=== PATIENT | male | born 1950 | race Caucasian/White ===

== ENCOUNTER 2016-05-11 11:10 | Outpatient (CLI) | payer MEDICARE, OTHER ==
[2016-05-11 11:40] LABS: HEMATOCRIT 22.8 % (37.9-51.0); HGB HCT DIFFERENCE -0.3; MEAN CORPUSCULAR HEMOGLOBIN 25.9 pg (27.0-33.4); MEAN CORPUSCULAR HGB CONC 32.8 g/dL (32.0-36.0); MEAN CORPUSCULAR VOLUME 79 fl (80-97); RED BLOOD COUNT 2.89 10^6/uL (4.35-5.55); RED CELL DISTRIBUTION WIDTH 19.5 % (11.5-14.0); WHITE BLOOD COUNT 4.4 10^3/uL (4.0-10.5)
[2016-05-11 11:52] LABS: HEMOGLOBIN 7.5 g/dL (13.5-17.0)
[2016-05-11] MEDS ORDERED: ACETAMINOPHEN 325 MG TABLET PO PRN (11:52)
[2016-05-11] MEDS ORDERED: NORMAL SALINE 1000 ML 1,000 ML IV PRN (11:52)
[2016-05-11] MEDS ORDERED: DIPHENHYDRAMINE HCL 25 MG CAPSULE PO PRN (11:53)
[2016-05-11] MEDS ORDERED: FUROSEMIDE INJ/PF 20 MG/2 ML SDV IV PRN (11:54)
[2016-05-11 16:12] VITALS: BP 154/57
[2016-05-11 16:29] LABS: HEMATOCRIT 27.2 % (37.9-51.0); HEMOGLOBIN 8.7 g/dL (13.5-17.0); HGB HCT DIFFERENCE -1.1; MEAN CORPUSCULAR HEMOGLOBIN 25.8 pg (27.0-33.4); MEAN CORPUSCULAR VOLUME 81 fl (80-97); RED BLOOD COUNT 3.37 10^6/uL (4.35-5.55); RED CELL DISTRIBUTION WIDTH 19.2 % (11.5-14.0); WHITE BLOOD COUNT 5.6 10^3/uL (4.0-10.5)
== END 2016-05-11 16:27 | disposition home or self-care (01) ==
LOC: II 11:10 → 5TH 11:12 → II 16:27
PROVIDERS: ATTEND Internal Medicine Medical Oncology
PROC: 30233N1 Transfusion of Nonautologous Red Blood Cells into Peripheral Vein, Percutaneous Approach (ICD-10-PCS; principal; 2016-05-11)
DX: N18.9 Chronic kidney disease, unspecified (principal); D50.9 Iron deficiency anemia, unspecified
CPT/HCPCS: 86900; 86901; 36415; 36430; 86850; 85027; 86920; P9016; A9270 ×2; J1940

== ENCOUNTER 2016-05-19 08:47 | Day surgery (SDC) | payer MEDICARE, OTHER ==
[~2016-05-19 08:47] MED LIST: BUPIVACAINE HCL 0.75% INJ/PF (7.5 MG/1 ML) 10 ML SDV OS PRN; CHONDR SU A NA/HYALUR INTRAOC KIT (SURGICARE) ONE; KETOROLAC TROMETHAMINE 0.45% 4 DROP/0.4 ML DROPERETTE OS PRN; LIDOCAINE 4% INJ/PF (40 MG/ML) 5 ML AMPUL OS PRN; PHENYLEPHRINE/KETOROLAC 1%-0.3% 4 ML VIAL ONE
[2016-05-19] MEDS: CYCLOPENTOLATE 0.2%/PHENYLEPHRINE 1% OPH SOLN 2 ML OS PRN ×3 (09:44→10:20)
[2016-05-19] MEDS: TROPICAMIDE 1% OPH SOLN 3 ML OS PRN ×3 (09:44→10:21)
[2016-05-19] MEDS: BESIFLOXACIN HCL 0.6% OPH SUSP 5 ML BOTTLE OS PRN ×3 (09:45→11:15)
[2016-05-19] MEDS: TETRACAINE HCL 0.5% OPH SOLN 0.6 ML DROPERETTE OS PRN ×2 (09:45→10:21)
[2016-05-19] MEDS ORDERED: MIDAZOLAM 2 MG/2 ML INJ ONE (09:54)
--- NOTE | 2016-05-19 12:33 | [facility] OPERATIVE REPORT E ---
[facility] Operative Report NAME: FRIEDA NJ AGE: 66Y DATE OF SURGERY: 05/19/2016 ROOM: PREOPERATIVE DIAGNOSIS: Cataract, left eye. POSTOPERATIVE DIAGNOSIS: Cataract, left eye. PROCEDURE PERFORMED: Phacoemulsification with posterior chamber intraocular lens, left eye. SURGEON: Nicole Tracy MD ANESTHESIA: Topical with MAC. INDICATIONS FOR SURGERY: Difficulty reading TV and glare. Best corrected visual acuity 20/200. PROCEDURE: The patient was brought to the operating room and placed on the operative table. Following tetracaine drops, topical anesthesia was administered. This consisted of instrument wipe pledgets soaked in a solution of 4% Xylocaine mixed with 0.75% Marcaine in a 1:2 ratio. A 2 x 1 cm pledget was placed in the superior fornix. A 1 x 1 cm pledget was placed in the inferior fornix. The eye was patched shut for 5 minutes. The patch was removed. The eye was sterilely prepped and draped in the usual manner. Lid speculum was placed in the eye. The pledgets were removed. 4-0 black silk sutures were placed around the superior and the inferior rectus muscles to be used as traction. A conjunctival peritomy was made at the 10 o'clock position. Hemostasis was obtained with bipolar cautery. A posterior limbal groove was created using a crescent knife and dissected anteriorly towards the cornea. A sharp point blade was used to create a paracentesis site at the 2 o'clock position. A 2.4 mm keratome was used to enter the anterior chamber through the groove. Viscoelastic was injected into the anterior chamber. An anterior capsulotomy was performed using Utrata forceps in a capsulorrhexis fashion. Hydrodissection and hydrodelineation were performed. Phacoemulsification was performed in bnnudz-gwm-[id number] technique. Total phaco time 46 seconds. Following this, the I/A unit was used to remove residual cortex. Viscoelastic was injected into the capsular bag. Intraocular lens model SN60WF, 22.0 diopters, serial number [id number] was placed in the capsular bag. The I/A unit was used to remove residual viscoelastic. The wound was seen to be watertight under high and low pressure, and no sutures were placed. The intraocular lens was well centered. The pressure was adjusted in the eye to normal pressure. The 4-0 black silk sutures and lid speculum were removed. The eye was shielded after Besivance drops were placed. The patient tolerated the procedure well and was sent to the recovery room in good condition. DICTATING PHYSICIAN: NICOLE TRACY M.D. [id number] PHY#: [id number] ID: [id number] JOB#: [id number] ACCT: [id number] cc:NICOLE TRACY M.D. >
--- NOTE | 2016-05-19 12:33 | [facility] DISCHARGE SUMMARY E ---
[facility] Discharge Summary NAME: FRIEDA NJ AGE: 66Y ADMITTED: 05/19/2016 DISCHARGED: 05/19/2016 PREOPERATIVE DIAGNOSIS: Cataract, left eye. POSTOPERATIVE DIAGNOSIS: Cataract, left eye. HOSPITAL COURSE: The patient is a 66-year-old gentleman who underwent uneventful cataract extraction with intraocular lens implant, left eye, on 05/19/2016. He will be discharged to home. He was instructed to resume preoperative medications, take Tylenol as needed for discomfort, to keep his eye shielded, to use Besivance, Durezol, and Ilevro at 3 p.m. and 8 p.m., and to followup in my office in 1 day. DICTATING PHYSICIAN: ISMA TRACY M.D. [id number] PHY#: [id number] ID: [id number] JOB#: [id number] ACCT: [id number] cc:ISMA TRACY M.D. >
== END 2016-05-19 11:54 | disposition home or self-care (01) ==
LOC: SC 08:47
PROVIDERS: ATTEND Ophthalmology
PROC: 08RK3JZ Replacement of Left Lens with Synthetic Substitute, Percutaneous Approach (ICD-10-PCS; principal; 2016-05-19 10:15)
DX: H25.813 Combined forms of age-related cataract, bilateral (principal); H49.21 Sixth [abducent] nerve palsy, right eye; H53.2 Diplopia; H52.4 Presbyopia; I12.0 Hypertensive chronic kidney disease with stage 5 chronic kidney disease or end stage renal disease; N18.6 End stage renal disease; F17.210 Nicotine dependence, cigarettes, uncomplicated; M19.90 Unspecified osteoarthritis, unspecified site; Z99.2 Dependence on renal dialysis; Z85.46 Personal history of malignant neoplasm of prostate; Z79.899 Other long term (current) drug therapy
CPT/HCPCS: 66984; V2632; J2250; J3490 ×3; A9270; C9447; 142

== ENCOUNTER 2016-06-15 11:38 | Outpatient (CLI) | payer MEDICARE, OTHER ==
[2016-06-15 12:09] LABS: HEMATOCRIT 20.5 % (37.9-51.0); HGB HCT DIFFERENCE 0.2; MEAN CORPUSCULAR HEMOGLOBIN 26.9 pg (27.0-33.4); MEAN CORPUSCULAR HGB CONC 33.6 g/dL (32.0-36.0); MEAN CORPUSCULAR VOLUME 80 fl (80-97); RED BLOOD COUNT 2.56 10^6/uL (4.35-5.55); RED CELL DISTRIBUTION WIDTH 19.1 % (11.5-14.0); WHITE BLOOD COUNT 2.8 10^3/uL (4.0-10.5)
[2016-06-15 12:15] LABS: HEMOGLOBIN 6.9 g/dL (13.5-17.0)
[2016-06-15] MEDS ORDERED: ACETAMINOPHEN 325 MG TABLET ONE (13:20)
[2016-06-15] MEDS ORDERED: DIPHENHYDRAMINE HCL 25 MG CAPSULE ONE (13:20)
[2016-06-15] MEDS ORDERED: NORMAL SALINE 250 ML IV PRN (13:38)
[2016-06-15] MEDS ORDERED: FUROSEMIDE INJ/PF 20 MG/2 ML SDV IV PRN (13:40)
[2016-06-15 16:28] LABS: HEMATOCRIT 23.6 % (37.9-51.0); HEMOGLOBIN 8.2 g/dL (13.5-17.0); MEAN CORPUSCULAR HEMOGLOBIN 27.5 pg (27.0-33.4); MEAN CORPUSCULAR HGB CONC 34.5 g/dL (32.0-36.0); MEAN CORPUSCULAR VOLUME 80 fl (80-97); RED BLOOD COUNT 2.97 10^6/uL (4.35-5.55); RED CELL DISTRIBUTION WIDTH 17.7 % (11.5-14.0); WHITE BLOOD COUNT 3.7 10^3/uL (4.0-10.5)
[2016-06-15 16:44] VITALS: BP 140/70
== END 2016-06-15 16:44 | disposition home or self-care (01) ==
LOC: II 11:38 → 5TH 11:43 → II 16:44
PROVIDERS: ATTEND Internal Medicine Medical Oncology
PROC: 30233N1 Transfusion of Nonautologous Red Blood Cells into Peripheral Vein, Percutaneous Approach (ICD-10-PCS; principal; 2016-06-15)
DX: D50.9 Iron deficiency anemia, unspecified (principal); N18.9 Chronic kidney disease, unspecified
CPT/HCPCS: 86900; 86901; 36415; 36430; 86850; 85027; 86920; P9016; A9270 ×2

== ENCOUNTER 2016-09-11 10:39 | Emergency (ER) | payer MEDICARE, OTHER ==
[2016-09-11] MEDS ORDERED: ONDANSETRON 4 MG TAB.RAPDIS SL ONE (11:07)
[2016-09-11] MEDS ORDERED: NORMAL SALINE 1000 ML 500 ML IV PRN (11:09)
--- NOTE | 2016-09-11 11:09 | ER Document Report ---
ED Medical Screen (RME) - General Chief Complaint: Nausea/Vomiting/Diarrhea Stated Complaint: WEAKNESS Time Seen by Provider: 09/11/16 11:04 Mode of Arrival: Wheelchair Information source: Patient TRAVEL OUTSIDE OF THE [place] IN LAST 30 DAYS: No - HPI Patient complains to provider of: Nausea, vomiting, diarrhea Onset: Other - 4 days Onset/Duration: Persistent Quality of pain: No pain Associated Symptoms: Diarrhea, Fever, Nausea, Vomiting Exacerbated by: Denies Relieved by: Denies Notes: 09/11/16 11:08 Patient is a 66-year-old male with a history of end-stage renal disease on hemodialysis Sunday and Sunday, who presents to the emergency room complaining of nausea vomiting and diarrhea 4 days, he denies any blood in his vomit or stools, no abdominal pain, had a fever of [address] Wall told him to come to the emergency room - Related Data Allergies/Adverse Reactions: No Known Allergies Allergy (Verified 09/11/16 10:49) Past Medical History - Past Medical History Cardiac Medical History: Reports: Hx Hypertension Denies: Hx Congestive Heart Failure, Hx Coronary Artery Disease, Hx Heart Attack Pulmonary Medical History: Denies: Hx Asthma, Hx Bronchitis, Hx COPD, Hx Pneumonia, Hx Tuberculosis Neurological Medical History: Denies: Hx Cerebrovascular Accident, Hx Seizures Renal/ Medical History: Reports: Hx Benign Prostatic Hyperplasia - enlarged but surgery and ok now, Hx End Stage Renal Disease. Denies: Hx Kidney Stones, Hx Peritoneal Dialysis GI Medical History: Reports: Hx Gastroesophageal Reflux Disease, Hx Ulcer - 1989 surgery for ulcers. Denies: Hx Cirrhosis, Hx Hepatitis, Hx Hiatal Hernia Musculoskeltal Medical History: Denies Hx Arthritis, Denies Hx Multiple Sclerosis Psychiatric Medical History: Denies: Hx Bipolar Disorder, Hx Depression, Hx Schizophrenia Infectious Medical History: Denies: Hx Hepatitis Past Surgical History: Denies: Hx Open Heart Surgery, Hx Pacemaker - Immunizations Hx Diphtheria, Pertussis, Tetanus Vaccination: No Physical Exam - Vital signs Vitals: Temp Pulse Resp BP Pulse Ox 98.4 F 96 22 H 102/58 L 98 09/11/16 10:49 09/11/16 10:49 09/11/16 10:49 09/11/16 10:49 09/11/16 10:49 Course - Vital Signs Vital signs: Temp Pulse Resp BP Pulse Ox 98.4 F 96 22 H 102/58 L 98 09/11/16 10:49 09/11/16 10:49 09/11/16 10:49 09/11/16 10:49 09/11/16 10:49
[2016-09-11 11:46] LABS: HEMATOCRIT 26.2 % (37.9-51.0); HEMOGLOBIN 8.6 g/dL (13.5-17.0); HGB HCT DIFFERENCE -0.4; MEAN CORPUSCULAR HEMOGLOBIN 28.7 pg (27.0-33.4); MEAN CORPUSCULAR HGB CONC 32.8 g/dL (32.0-36.0); MEAN CORPUSCULAR VOLUME 88 fl (80-97); RED BLOOD COUNT 2.99 10^6/uL (4.35-5.55); RED CELL DISTRIBUTION WIDTH 17.7 % (11.5-14.0); WHITE BLOOD COUNT 2.8 10^3/uL (4.0-10.5)
[2016-09-11 12:03] LABS: ALANINE AMINOTRANSFERASE 17 U/L (21-72); ALBUMIN 4.4 g/dL (3.5-5.0); ALKALINE PHOSPHATASE 279 U/L (38-126); ASPARTATE AMINO TRANSFERASE 23 U/L (17-59); BILIRUBIN,DIRECT 0.7 mg/dL (0.0-0.4); BILIRUBIN,TOTAL 1.6 mg/dL (0.2-1.3); BLOOD UREA NITROGEN 54 mg/dL (7-20); CALCIUM 7.6 mg/dL (8.4-10.2); CARBON DIOXIDE 25 mmol/L (22-30); CHLORIDE 84 mmol/L (98-107); CREATININE RESULT 9.42 mg/dL (0.52-1.25); GLUCOSE 107 mg/dL (75-110); LIPASE 26.3 U/L (23-300); POTASSIUM 4.4 mmol/L (3.6-5.0); SODIUM 132.2 mmol/L (137-145); TOTAL PROTEIN 7.5 g/dL (6.3-8.2)
[2016-09-11 12:18] LABS: ANION GAP 23 (5-19)
[2016-09-11 12:32] LABS: BASOPHILS % (MANUAL) 0 % (0-2); EOSINOPHILS % (MANUAL) 0 % (0-6); LYMPHOCYTES % (MANUAL) 17 % (13-45); TOTAL CELLS COUNTED 100
[2016-09-11 12:33] LABS: POIKILOCYTOSIS 1+; ROULEAUX SLIGHT; TOXIC GRANULATION SLIGHT; TOXIC VACUOLATION PRESENT
[2016-09-11 12:34] LABS: ANISOCYTOSIS 2+; HYPOCHROMASIA SLIGHT; OVALOCYTES SLIGHT; POLYCHROMASIA SLIGHT; TEAR DROP CELLS SLIGHT
[2016-09-11 12:41] LABS: BAND NEUTROPHILS % (MANUAL) 14 % (3-5)
[2016-09-11] MEDS ORDERED: MIDAZOLAM 2 MG/2 ML INJ IV ONE (13:17)
[2016-09-11] MEDS ORDERED: MORPHINE SULFATE 10 MG/ML INJ IV ONE (13:18)
[2016-09-11] MEDS ORDERED: MORPHINE SULFATE 10 MG/ML INJ ONE (13:22)
[2016-09-11] MEDS ORDERED: MIDAZOLAM 2 MG/2 ML INJ ONE (13:23)
--- NOTE | 2016-09-11 14:18 | ER Document Report ---
ED General - General Chief Complaint: Nausea/Vomiting/Diarrhea Stated Complaint: WEAKNESS Time Seen by Provider: 09/11/16 11:04 Mode of Arrival: Wheelchair Information source: Patient Notes: 66 yr old dialysis patient with hx of T [place] Sat , who will have dialysis tomorow presents with complaints of nausea vomiting and diarrhea. pt denies any fevers or chills. TRAVEL OUTSIDE OF THE [place] IN LAST 30 DAYS: No - HPI Onset: Yesterday Onset/Duration: Persistent Quality of pain: No pain Severity: Mild Pain Level: 1 Associated symptoms: Diarrhea, Nausea, Vomiting, Weakness Exacerbated by: Denies Relieved by: Denies Similar symptoms previously: Yes Recently seen / treated by doctor: Yes - sent in by pcp this morning - Related Data Allergies/Adverse Reactions: No Known Allergies Allergy (Verified 09/11/16 10:49) Past Medical History - General Information source: Patient - Social History Smoking Status: Never Smoker Cigarette use (# per day): No Chew tobacco use (# tins/day): No Smoking Education Provided: No Frequency of alcohol use: None Drug Abuse: None Family History: Reviewed & Not Pertinent Patient has suicidal ideation: No Patient has homicidal ideation: No - Past Medical History Cardiac Medical History: Reports: Hx Hypertension Denies: Hx Congestive Heart Failure, Hx Coronary Artery Disease, Hx Heart Attack Pulmonary Medical History: Denies: Hx Asthma, Hx Bronchitis, Hx COPD, Hx Pneumonia, Hx Tuberculosis Neurological Medical History: Denies: Hx Cerebrovascular Accident, Hx Seizures Renal/ Medical History: Reports: Hx Benign Prostatic Hyperplasia - enlarged but surgery and ok now, Hx End Stage Renal Disease. Denies: Hx Kidney Stones, Hx Peritoneal Dialysis GI Medical History: Reports: Hx Gastroesophageal Reflux Disease, Hx Ulcer - 1990 surgery for ulcers. Denies: Hx Cirrhosis, Hx Hepatitis, Hx Hiatal Hernia Musculoskeltal Medical History: Denies Hx Arthritis, Denies Hx Multiple Sclerosis Psychiatric Medical History: Denies: Hx Bipolar Disorder, Hx Depression, Hx Schizophrenia Infectious Medical History: Denies: Hx Hepatitis Past Surgical History: Denies: Hx Open Heart Surgery, Hx Pacemaker - Immunizations Hx Diphtheria, Pertussis, Tetanus Vaccination: No Hx Pneumococcal Vaccination: 04/02/13 Review of Systems - Review of Systems Notes: REVIEW OF SYSTEMS: CONSTITUTIONAL : Denies fever, chills, or sweats. Denies recent illness. EENT: Denies eye, ear, throat, or mouth pain or symptoms. Denies nasal or sinus congestion or discharge. Denies throat, tongue, or mouth swelling or difficulty swallowing. CARDIOVASCULAR: Denies chest pain. Denies palpitations or racing or irregular heart beat. Denies ankle edema. RESPIRATORY: Denies cough, cold, or chest congestion. Denies shortness of breath, difficulty breathing, or wheezing. GASTROINTESTINAL: Admits to nausea vomiting diarrhea GENITOURINARY: Denies difficulty urinating, painful urination, burning, frequency, blood in urine, or discharge. MUSCULOSKELETAL: Denies back or neck pain or stiffness. Denies joint pain or swelling. SKIN: Denies rash, lesions or sores. HEMATOLOGIC : Denies easy bruising or bleeding. LYMPHATIC: Denies swollen, enlarged glands. NEUROLOGICAL: Denies confusion or altered mental status. Denies passing out or loss of consciousness. Denies dizziness or lightheadedness. Denies headache. Denies weakness or paralysis or loss of use of either side. Denies problems with gait or speech. Denies sensory loss, numbness, or tingling. Denies seizures. PSYCHIATRIC: Denies anxiety or stress. Denies depression, suicidal ideation, or homicidal ideation. ALL OTHER SYSTEMS REVIEWED AND NEGATIVE. Dictation was performed using [employer] voice recognition software PHYSICAL EXAMINATION: GENERAL: Well-appearing, well-nourished and in no acute distress. HEAD: Atraumatic, normocephalic. EYES: Pupils equal round and reactive to light, extraocular movements intact, sclera anicteric, conjunctiva are normal. ENT: Nares patent, oropharynx clear without exudates. Moist mucous membranes. NECK: Normal range of motion, supple without lymphadenopathy LUNGS: Breath sounds clear to auscultation bilaterally and equal. No wheezes rales or rhonchi. HEART: Regular rate and rhythm without murmurs ABDOMEN: Soft, nontender, nondistended abdomen. No guarding, no rebound. No masses appreciated. Musculoskeletal: Normal range of motion, no pitting or edema. No cyanosis. NEUROLOGICAL: Cranial nerves grossly intact. Normal speech, normal gait. Normal sensory, motor exams PSYCH: Normal mood, normal affect. SKIN: Warm, Dry, normal turgor, no rashes or lesions noted. Dialysis access left indicated Physical Exam - Vital signs Vitals: Temp Pulse Resp BP Pulse Ox 98.4 F 96 22 H 102/58 L 98 06/12/17 10:49 09/11/16 10:49 09/11/16 10:49 09/11/16 10:49 09/11/16 10:49 Course - Re-evaluation Re-evalutation: 09/11/16 14:17 Dr Wolfgang cueto 09/11/16 14:26 pt notes he is feeling much better, but noted ot have bandemia 09/11/16 15:18 Patient was reevaluated again notes he feels much better wishes to go home, at primary care physician's request I will give another liter of fluids discharge home on antibiotics and very close follow-up. Family is very happy with this plan I expressed my concerns regarding the bandemia and very strict return precautions After performing a Medical Screening Examination, I estimate there is LOW risk for ACUTE APPENDICITIS, BOWEL OBSTRUCTION, ACUTE CHOLECYSTITIS, PERFORATED DIVERTICULITIS, INCARCERATED HERNIA, PANCREATITIS, or PERFORATED ULCER, thus I consider the discharge disposition reasonable. Also, there is no evidence or peritonitis, sepsis, or toxicity. I have reevaluated this patient multiple times and no significant life threatening changes are noted. The patient and I have discussed the diagnosis and risks, and we agree with discharging home with close follow-up with the understanding that symptoms and presentations can change. We also discussed returning to the Emergency Department immediately if new or worsening symptoms occur. We have discussed the symptoms which are most concerning (e.g., bloody stool, fever, changing or worsening pain, intractable vomiting - standard verbal up date) that necessitate immediate return. - Vital Signs Vital signs: Temp Pulse Resp BP Pulse Ox 98.4 F 96 22 H 102/58 L 98 09/11/16 10:49 09/11/16 10:49 09/11/16 10:49 09/11/16 10:49 09/11/16 10:49 - Laboratory Result Diagrams: 09/11/16 11:20 09/11/16 11:20 Laboratory results interpreted by me: 09/11/16 09/11/16 11:20 11:20 WBC 2.8 L RBC 2.99 L Hgb 8.6 L Hct 26.2 L RDW 17.7 H Band Neutrophils % 14 H Sodium 132.2 L Chloride 84 L Anion Gap 23 H BUN 54 H Creatinine 9.42 H Est GFR ( Amer) 7 L Est GFR (Non-Af Amer) 6 L Calcium 7.6 L Total Bilirubin 1.6 H Direct Bilirubin 0.7 H ALT 17 L Alkaline Phosphatase 279 H Discharge - Discharge Clinical Impression: ESRD (end stage renal disease), Bandemia without diagnosis of specific infection, Nausea vomiting and diarrhea Condition: Stable Disposition: HOME, SELF-CARE Instructions: Diarrhea, Nonspecific ([facility]) Prescriptions: Ciprofloxacin HCl [Cipro 500 mg Tablet] 500 mg PO BID #10 tablet Ondansetron [Zofran Odt 4 mg Tablet] 1 - 2 tab PO Q4H PRN #15 tab.rapdis PRN Reason: For Nausea/Vomiting Referrals: LUIS CHAUDHARY MD [Primary Care Provider] - Follow up tomorrow
[2016-09-11] MEDS ORDERED: NORMAL SALINE 1000 ML 1,000 ML IV ONE (15:06)
[2016-09-11 16:51] VITALS: BP 143/67
[2016-09-11 16:52] LABS: APPEARANCE,URINE SLIGHTLY-CLOUDY; BILIRUBIN,URINE NEGATIVE (NEGATIVE); GLUCOSE, URINE NEGATIVE (NEGATIVE); KETONES,URINE NEGATIVE (NEGATIVE); LEUKOCYTE ESTERASE,URINE NEGATIVE (NEGATIVE); NITRITE,URINE NEGATIVE (NEGATIVE); PROTEIN,URINE 100 mg/dL (NEGATIVE); URINE SPECIFIC GRAVITY 1.013; UROBILINOGEN,URINE NEGATIVE mg/dL (<2.0)
--- NOTE | 2016-09-12 00:15 | EKG REPORT ---
SEVERITY:- ABNORMAL ECG - SINUS RHYTHM PROBABLE LEFT ATRIAL ABNORMALITY PROLONGED QT INTERVAL : Confirmed by: Rodger Gordon 12-Sep-2016 00:14:09
[2016-09-12 12:12] LABS: PATH REVIEW PATHOLOGIST REVIEWED
== END 2016-09-11 16:50 | disposition home or self-care (01) ==
LOC: ER 10:39
DX: R11.2 Nausea with vomiting, unspecified (principal); R19.7 Diarrhea, unspecified; D72.825 Bandemia; I12.0 Hypertensive chronic kidney disease with stage 5 chronic kidney disease or end stage renal disease; N18.6 End stage renal disease; Z99.2 Dependence on renal dialysis; R53.1 Weakness
CPT/HCPCS: 93005; 99285; 96372; 96360; 96361; 36415; 83690; 85025; 80053; 81001; 93010; A9270; J7030; S0119

== ENCOUNTER 2016-09-14 11:09 | Outpatient (CLI) | payer MEDICARE, OTHER ==
[~2016-09-14 11:09] MED LIST changes: +ACETAMINOPHEN 325 MG TABLET PO PRN; -BUPIVACAINE HCL 0.75% INJ/PF (7.5 MG/1 ML) 10 ML SDV OS PRN; -CHONDR SU A NA/HYALUR INTRAOC KIT (SURGICARE) ONE; +DIPHENHYDRAMINE HCL 25 MG CAPSULE PO PRN; +FUROSEMIDE INJ/PF 20 MG/2 ML SDV IV PRN; -KETOROLAC TROMETHAMINE 0.45% 4 DROP/0.4 ML DROPERETTE OS PRN; -LIDOCAINE 4% INJ/PF (40 MG/ML) 5 ML AMPUL OS PRN; +NORMAL SALINE 1000 ML 1,000 ML IV PRN; -PHENYLEPHRINE/KETOROLAC 1%-0.3% 4 ML VIAL ONE
[2016-09-14 12:17] LABS: HEMATOCRIT 18.8 % (37.9-51.0); HGB HCT DIFFERENCE -0.2; MEAN CORPUSCULAR HEMOGLOBIN 28.4 pg (27.0-33.4); MEAN CORPUSCULAR HGB CONC 33.2 g/dL (32.0-36.0); MEAN CORPUSCULAR VOLUME 86 fl (80-97); RED CELL DISTRIBUTION WIDTH 16.5 % (11.5-14.0)
[2016-09-14 12:21] LABS: HEMOGLOBIN 6.2 g/dL (13.5-17.0)
[2016-09-14 21:59] LABS: HEMATOCRIT 21.9 % (37.9-51.0); MEAN CORPUSCULAR HEMOGLOBIN 28.9 pg (27.0-33.4); MEAN CORPUSCULAR HGB CONC 33.3 g/dL (32.0-36.0); MEAN CORPUSCULAR VOLUME 87 fl (80-97); RED BLOOD COUNT 2.53 10^6/uL (4.35-5.55); RED CELL DISTRIBUTION WIDTH 15.9 % (11.5-14.0); WHITE BLOOD COUNT 4.4 10^3/uL (4.0-10.5)
[2016-09-14 22:09] LABS: HEMOGLOBIN 7.3 g/dL (13.5-17.0)
[2016-09-14 22:11] VITALS: BP 138/65
== END 2016-09-14 22:27 | disposition home or self-care (01) ==
LOC: II 11:09 → 2N 11:15 → II 22:27
PROVIDERS: ATTEND Internal Medicine Medical Oncology
PROC: 30233N1 Transfusion of Nonautologous Red Blood Cells into Peripheral Vein, Percutaneous Approach (ICD-10-PCS; principal; 2016-09-14)
DX: N18.9 Chronic kidney disease, unspecified (principal); D63.1 Anemia in chronic kidney disease
CPT/HCPCS: 86900; 86901; 36415; 36430; 86850; 85027; 86920; P9016; A9270 ×2; J1940

== ENCOUNTER 2016-10-23 06:15 | Day surgery (SDC) | payer MEDICARE, OTHER ==
[2016-10-23 07:05] LABS: HEMATOCRIT 28.6 % (37.9-51.0); HEMOGLOBIN 9.4 g/dL (13.5-17.0); HGB HCT DIFFERENCE -0.4; MEAN CORPUSCULAR HEMOGLOBIN 29.9 pg (27.0-33.4); MEAN CORPUSCULAR HGB CONC 32.9 g/dL (32.0-36.0); MEAN CORPUSCULAR VOLUME 91 fl (80-97); RED BLOOD COUNT 3.15 10^6/uL (4.35-5.55); RED CELL DISTRIBUTION WIDTH 18.1 % (11.5-14.0); WHITE BLOOD COUNT 5.6 10^3/uL (4.0-10.5)
[2016-10-23 07:13] LABS: ANION GAP 16 (5-19); BLOOD UREA NITROGEN 29 mg/dL (7-20); CALCIUM 8.6 mg/dL (8.4-10.2); CARBON DIOXIDE 24 mmol/L (22-30); CHLORIDE 96 mmol/L (98-107); CREATININE RESULT 7.38 mg/dL (0.52-1.25); GLUCOSE 83 mg/dL (75-110); POTASSIUM 4.4 mmol/L (3.6-5.0); SODIUM 136.2 mmol/L (137-145)
[2016-10-23] MEDS ORDERED: FENTANYL CITRATE INJ/PF 100 MCG/2 ML AMPUL ONE (07:39)
[2016-10-23] MEDS ORDERED: LIDOCAINE 0.5% INJ-PF (5 MG/ML) 50 ML SDV ONE (07:39)
[2016-10-23] MEDS ORDERED: MIDAZOLAM 2 MG/2 ML INJ ONE (07:39)
[2016-10-23] MEDS ORDERED: HEPARIN SOD (PORCINE) 5,000 UNIT/ML 1 ML SYRINGE ONE (07:39)
[2016-10-23] MEDS ORDERED: DIAZEPAM 5 MG TABLET ONE (09:07)
[2016-10-23] MEDS ORDERED: OXYCODONE-ACETAMINOPHEN 5-325 MG TABLET ONE (09:08)
--- NOTE | 2016-10-23 10:01 | PDOC H&P ---
General Chief Complaint: The patient is admitted for evaluation and treatment of left arm arteriovenous fistula which has been malfunctioning. - Current Medications/Allergies Home Medications: Cholecalciferol (Vitamin D3) [Vitamin D3] 50,000 unit PO ASDIR 06/16/14 Sevelamer Carbonate [Renvela] 1 tab PO ASDIR PRN 06/16/14 Besifloxacin HCl [Besivance 0.6% Oph Susp 5 ml] 1 drop OP ASDIR PRN 05/17/16 Difluprednate [Durezol] 5 ml OP ASDIR PRN 05/17/16 Epoetin Gerber [Procrit Inj 40,000 Unit/1 Ml Vial (Nrd-Subq)] 40,000 unit SUBCUT .3WEEKS 05/17/16 Nepafenac [Ilevro] 1.7 ml OP ASDIR PRN 05/17/16 Acetaminophen [Tylenol Extra Strength] 2 tab PO DAILY PRN 10/20/16 Allergies/Adverse Reactions: No Known Allergies Allergy (Verified 10/20/16 11:52) Past Medical History Cardiac Medical History: Reports: Hypertension Denies: Congestive Heart Failure, Coronary Artery Disease, Myocardial Infarction Pulmonary Medical History: Denies: Asthma, Bronchitis, Chronic Obstructive Pulmonary Disease (COPD), Pneumonia, Tuberculosis Neurological Medical History: Denies: Seizures Renal/ Medical History: Reports: End Stage Renal Disease GI Medical History: Reports: Gastroesophageal Reflux Disease Denies: Cirrhosis, Hepatitis, Hiatal Hernia Musculoskeltal Medical History: Denies: Arthritis Psychiatric Medical History: Denies: Bipolar Disorder, Depression Hematology: Reports: Anemia, Bleeding Tendencies Denies: Sickle Cell Disease Past Surgical History Past Surgical History: Denies: Pacemaker Family History Family History: Reviewed & Not Pertinent Parental Family History Reviewed: No Children Family History Reviewed: No Sibling(s) Family History Reviewed.: No Social History Smoking Status: Former Smoker Frequency of Alcohol Use: None Hx Recreational Drug Use: No Drugs: None Hx Prescription Drug Abuse: No Physical Exam Vital Signs: Temp Pulse Resp BP Pulse Ox 97.9 F 64 17 158/67 H 100 10/23/16 09:15 10/23/16 09:57 10/23/16 09:57 10/23/16 09:57 10/23/16 09:57 Intake & Output 10/22/16 10/23/16 10/24/16 06:59 06:59 06:59 Weight 82.7 kg 82.7 kg Additional comments: Constitutional: Well-developed well-nourished gentleman. No apparent acute distress. Eyes: Mucous membranes pink and moist, pupils equal and reactive to light. Conjunctiva normal. Cornea normal. ENT: Hearing grossly normal. External pinna normal to inspection. Teeth missing. Tongue normal to inspection. Cardiac: Heart sounds 1 and 2 normal. Respiratory breath sounds are present bilaterally, normal. Normal respiratory effort. Psychiatric: Judgment, memory, insight seem normal. Mood is pleasant and appropriate. Extremities: Upper extremities show normal range of movement. Pulses present noted to the radial arteries. Capillary refill normal. No cyanosis noted. No muscle wasting noted. Left arm brachiocephalic fistula quite firm suggesting cephalad stenosis. Impression/Plan Impression: #1 malfunctioning AV fistula left brachiocephalic. 2. End-stage renal disease on hemodialysis. 3. Hypertension. Plan: Angiogram is planned with possible angioplasty. The goal is preservation of the fistula function.
--- NOTE | 2016-10-23 10:04 | PDOC DISCHARGE SUMMARY ---
Discharge Summary (SDC) - Discharge Final Diagnosis: #1 malfunctioning AV fistula left brachiocephalic. 2. End-stage renal disease on hemodialysis. 3. Hypertension. Date of Surgery: 10/23/16 Discharge Date: 10/23/16 Forms: [facility] Discharge Plan Treatment or Instructions: Discharge home [after recovery per ASU criteria]. Diet , [renal],as tolerated, when fully awake advance as tolerated. Activities within moderation encouraged. Follow up in my office by appointment in about [1 month]. Call for appointment. Leave wounds [covered], [keep clean and dry, until hemodialysis]. Review meds per med rec. May shower [in 48 hrs], [try to keep operated area as dry as possible]. Referrals: JORGE DHILLON MD [ACTIVE STAFF] - Discharge Diet: As Tolerated, Other (Comments) - Renal Respiratory Treatments at Home: Deep Breathing/Coughing Discharge Activity: Activity As Tolerated Report the Following to Your Physician Immediately: Shortness of Breath, Unusual Bleeding
--- NOTE | 2016-10-23 10:08 | Operative Report ---
Operative Report DATE OF SURGERY: 10/23/16 PREOPERATIVE DIAGNOSIS: #1 malfunctioning AV fistula left brachiocephalic. 2. End-stage renal disease on hemodialysis. 3. Hypertension. POSTOPERATIVE DIAGNOSIS: #1 malfunctioning AV fistula left brachiocephalic. Post angioplasty. 2. End-stage renal disease on hemodialysis. 3. Hypertension. OPERATION: 1. Needle access into the arteriovenous fistula. 2. Angioplasty. 3. Angiogram and interpretation. SURGEON: JORGE RIOS ASSOCIATE PASTOR: None ANESTHESIA: Moderate Sedation TISSUE REMOVED OR ALTERED: Not applicable. COMPLICATIONS: None ESTIMATED BLOOD LOSS: 2 mL. INTRAOPERATIVE FINDINGS: Of a well founded and somewhat firm left brachiocephalic fistula. The culprit lesion is about 3 cm away from the cephalic to subclavian junction. Stenosis about 80% of the adjacent lumen and for 2 cm was completely resolved by angioplasty. The fistula was appropriately softer post angioplasty. PROCEDURE: PROCEDURE: After verifying the procedure and having obtained informed consent, the patient's left arm was prepared with Chlorhexidine and draped out with sterile linen. Local anesthesia infiltrated. Percutaneous access into the fistula ,[ antegrade], obtained about [3 cm] from the arteriovenous anastomosis using a micro puncture needle followed by micro puncture wire and then a micro puncture catheter. Angiogram demonstrated the aforementioned findings. Angioplasty was elected. A 0.035 [place] wire was inserted, and over this, a 7 [place] short introducer was placed, this was followed by a [8-mm ] angioplasty balloon . Angioplasty was Done using a 3 mils syringe at the culprit lesion. This was done for 2 minutes and then repeated for 30 seconds.]. Completion angiogram demonstrated [satisfactory result]. The instrumentation was now withdrawn over and pressure for 10 minutes.. Dressings applied, procedure concluded. Exposure time: 2.1 minutes Radiation: 9 70 mcg/cm Contrast: 25 mm of Isovue 300, low osmolality. DICTATING PHYSICIAN: JORGE DHILLON M.D. cc: JORGE DHILLON M.D. ([id number]) >>
[2016-10-23 10:47] VITALS: BP 162/78
--- NOTE | 2016-10-23 17:34 | RADIOLOGY REPORT (SQ) ---
EXAM DESCRIPTION: FISTULAGRAM W/PLASTY COMPLETED DATE/TIME: 10/23/2016 4:36 pm REASON FOR STUDY: T82.858A T82.858A STENOSIS OF OTHER VASCULAR PROSTH DEV/GRFT, INIT COMPARISON: None. FLUOROSCOPY TIME: 2.1 minutes. 19 images saved to PACS. TECHNIQUE: Intra-operative images acquired during surgical procedure to evaluate progress. NUMBER OF IMAGES: 19 images. LIMITATIONS: None. FINDINGS: Imaging in fluoroscopy during upper extremity dialysis access evaluation and plasty by Dr Isaiah Hunter . Please refer to the operative report for further details. IMPRESSION: INTRA PROCEDURAL IMAGING ABOVE . COMMENT: Quality ID [id number]: Final reports for procedures using fluoroscopy that document radiation exp osure indices, or exposure time and number of fluorographic images (if radiation exposure indices are not available) Please consult full operative report of the attending physician for description of the procedure. TECHNICAL DOCUMENTATION: JOB ID: [id number] [employer]- All Rights Reserved
== END 2016-10-23 10:33 | disposition home or self-care (01) ==
LOC: SC 06:15
PROVIDERS: ATTEND Surgery
PROC: 057F3DZ Dilation of Left Cephalic Vein with Intraluminal Device, Percutaneous Approach (ICD-10-PCS; principal; 2016-10-23)
DX: T82.858A Stenosis of other vascular prosthetic devices, implants and grafts, initial encounter (principal); Y83.2 Surgical operation with anastomosis, bypass or graft as the cause of abnormal reaction of the patient, or of later complication, without mention of misadventure at the time of the procedure; I12.0 Hypertensive chronic kidney disease with stage 5 chronic kidney disease or end stage renal disease; N18.6 End stage renal disease; Z99.2 Dependence on renal dialysis; K21.9 Gastro-esophageal reflux disease without esophagitis; Z79.899 Other long term (current) drug therapy; Z87.891 Personal history of nicotine dependence
CPT/HCPCS: 36415; 85027; 80048; 36902; C1725; C1752; C1894; Q9967; C1769; J1644 ×2; A9270 ×2; J3490; J2250; J3010

== ENCOUNTER 2016-10-27 06:23 | Day surgery (SDC) | payer MEDICARE, OTHER ==
[~2016-10-27 06:23] MED LIST changes: -ACETAMINOPHEN 325 MG TABLET PO PRN; +BUPIVACAINE HCL 0.75% INJ/PF (7.5 MG/1 ML) 10 ML SDV OD PRN; -DIPHENHYDRAMINE HCL 25 MG CAPSULE PO PRN; -FUROSEMIDE INJ/PF 20 MG/2 ML SDV IV PRN; +KETOROLAC TROMETHAMINE 0.45% 4 DROP/0.4 ML DROPERETTE OD PRN; +LIDOCAINE 4% INJ/PF (40 MG/ML) 5 ML AMPUL OD PRN; -NORMAL SALINE 1000 ML 1,000 ML IV PRN
[2016-10-27] MEDS: CYCLOPENTOLATE 0.2%/PHENYLEPHRINE 1% OPH SOLN 2 ML OD PRN ×3 (06:51→07:11)
[2016-10-27] MEDS: BESIFLOXACIN HCL 0.6% OPH SUSP 5 ML BOTTLE OD PRN ×4 (06:51→07:52)
[2016-10-27] MEDS: TROPICAMIDE 1% OPH SOLN 3 ML OD PRN ×3 (06:51→07:11)
[2016-10-27] MEDS: TETRACAINE HCL 0.5% OPH SOLN 0.6 ML DROPERETTE OD PRN ×2 (06:52→07:11)
[2016-10-27] MEDS ORDERED: MIDAZOLAM 2 MG/2 ML INJ ONE (06:53)
[2016-10-27] MEDS ORDERED: FENTANYL CITRATE INJ/PF 100 MCG/2 ML AMPUL ONE (06:53)
[2016-10-27] MEDS ORDERED: EPINEPHRINE INJ/PF 1 MG/1 ML AMPULE ONE (07:07)
[2016-10-27] MEDS ORDERED: CHONDR SU A NA/HYALUR INTRAOC KIT (SURGICARE) ONE (07:07)
--- NOTE | 2016-10-27 08:08 | [facility] DISCHARGE SUMMARY E ---
[facility] Discharge Summary NAME: FRIEDA NJ AGE: 66Y ADMITTED: 10/27/2016 DISCHARGED: 10/27/2016 PREOPERATIVE DIAGNOSIS: Cataract, right eye. POSTOPERATIVE DIAGNOSIS: Cataract, right eye. HOSPITAL COURSE: The patient is a 66-year-old gentleman who underwent uneventful cataract extraction with intraocular lens implant, right eye, on 10/27/2016. He will be discharged to home. He was instructed to resume preoperative medications, take Tylenol as needed for discomfort, to keep his eye shielded, to use Besivance, Durezol, and Ilevro at 3 p.m. and 8 p.m., and to followup in my office in 1 day. DICTATING PHYSICIAN: ISMA TRACY M.D. [id number] PHY#: [id number] ID: [id number] JOB#: [id number] ACCT: [id number] cc:ISMA TRACY M.D. >
--- NOTE | 2016-10-27 08:08 | [facility] OPERATIVE REPORT E ---
[facility] Operative Report NAME: FRIEDA NJ AGE: 66Y DATE OF SURGERY: 10/27/2016 ROOM: PREOPERATIVE DIAGNOSIS: Cataract, right eye. POSTOPERATIVE DIAGNOSIS: Cataract, right eye. PROCEDURE PERFORMED: Phacoemulsification with posterior chamber intraocular lens, right eye. SURGEON: Nicole Tracy MD ANESTHESIA: Topical with MAC. INDICATIONS FOR SURGERY: Difficulty driving at night. Best corrected visual acuity 20/40. PROCEDURE: The patient was brought to the operating room and placed on the operative table. Following tetracaine drops, topical anesthesia was administered. This consisted of instrument wipe pledgets soaked in a solution of 4% Xylocaine mixed with 0.75% Marcaine in a 1:2 ratio. A 2 x 1 cm pledget was placed in the superior fornix. A 1 x 1 cm pledget was placed in the inferior fornix. The eye was patched shut for 5 minutes. The patch was removed. The eye was sterilely prepped and draped in the usual manner. Lid speculum was placed in the eye. The pledgets were removed. 4-0 black silk sutures were placed around the superior and the inferior rectus muscles to be used as traction. A conjunctival peritomy was made at the 10 o'clock position. Hemostasis was obtained with bipolar cautery. A posterior limbal groove was created using a crescent knife and dissected anteriorly towards the cornea. A sharp point blade was used to create a paracentesis site at the 2 o'clock position. A 2.4 mm keratome was used to enter the anterior chamber through the groove. Viscoelastic was injected into the anterior chamber. An anterior capsulotomy was performed using Utrata forceps in a capsulorrhexis fashion. Hydrodissection and hydrodelineation were performed. Phacoemulsification was performed in bptubo-lmt-[id number] technique. Total phaco time 3.60 CDE. Following this, the I/A unit was used to remove residual cortex. Viscoelastic was injected into the capsular bag. Intraocular lens model [id number], 21.0 diopters, serial number [id number] was placed in the capsular bag. The I/A unit was used to remove residual viscoelastic. The wound was seen to be watertight under high and low pressure, and no sutures were placed. The intraocular lens was well centered. The pressure was adjusted in the eye to normal pressure. The 4-0 black silk sutures and lid speculum were removed. The eye was shielded after Besivance drops were placed. The patient tolerated the procedure well and was sent to the recovery room in good condition. DICTATING PHYSICIAN: NICOLE TRACY M.D. [id number] PHY#: [id number] ID: [id number] JOB#: [id number] ACCT: [id number] cc:NICOLE TRACY M.D. >
== END 2016-10-27 08:39 | disposition home or self-care (01) ==
LOC: SC 06:23
PROVIDERS: ATTEND Ophthalmology
PROC: 08RJ3JZ Replacement of Right Lens with Synthetic Substitute, Percutaneous Approach (ICD-10-PCS; principal; 2016-10-27 07:30)
DX: H25.811 Combined forms of age-related cataract, right eye (principal); Z96.1 Presence of intraocular lens; I10 Essential (primary) hypertension; D64.9 Anemia, unspecified; F17.210 Nicotine dependence, cigarettes, uncomplicated; Z86.73 Personal history of transient ischemic attack (TIA), and cerebral infarction without residual deficits
CPT/HCPCS: 66984; V2632; J2250; J3490 ×3; A9270; J0171; J3010; 142

== ENCOUNTER 2017-02-19 05:50 | Day surgery (SDC) | payer MEDICARE, OTHER ==
[2017-02-19 07:17] LABS: HEMOGLOBIN 9.9 g/dL (13.5-17.0); HGB HCT DIFFERENCE 0.7; MEAN CORPUSCULAR HGB CONC 34.1 g/dL (32.0-36.0); MEAN CORPUSCULAR VOLUME 88 fl (80-97); RED CELL DISTRIBUTION WIDTH 17.6 % (11.5-14.0); WHITE BLOOD COUNT 3.6 10^3/uL (4.0-10.5)
[2017-02-19] MEDS ORDERED: LIDOCAINE 0.5% INJ-PF (5 MG/ML) 50 ML SDV ONE (07:28)
[2017-02-19] MEDS ORDERED: MIDAZOLAM 2 MG/2 ML INJ ONE (07:31)
[2017-02-19] MEDS ORDERED: FENTANYL CITRATE INJ/PF 100 MCG/2 ML AMPUL ONE (07:31)
[2017-02-19] MEDS ORDERED: HEPARIN SOD (PORCINE) 5,000 UNIT/ML 1 ML SYRINGE ONE (07:32)
[2017-02-19 08:07] LABS: ANION GAP 16 (5-19); BLOOD UREA NITROGEN 40 mg/dL (7-20); CALCIUM 9.4 mg/dL (8.4-10.2); CARBON DIOXIDE 27 mmol/L (22-30); CHLORIDE 100 mmol/L (98-107); CREATININE RESULT 8.58 mg/dL (0.52-1.25); GLUCOSE 79 mg/dL (75-110); POTASSIUM 4.8 mmol/L (3.6-5.0)
--- NOTE | 2017-02-19 11:08 | PDOC H&P ---
General Chief Complaint: This patient was referred across for angiogram because of increasing difficulty in dialysis. - Current Medications/Allergies Home Medications: Cholecalciferol (Vitamin D3) [Vitamin D3] 50,000 unit PO ASDIR 06/16/14 Sevelamer Carbonate [Renvela] 1 tab PO ASDIR PRN 06/16/14 Epoetin Gerber [Procrit Inj 40,000 Unit/1 ml Vial (Oncology)] 40,000 unit SUBCUT .3WEEKS 05/17/16 Acetaminophen [Tylenol Extra Strength] 2 tab PO DAILY PRN 10/20/16 Allergies/Adverse Reactions: No Known Allergies Allergy (Verified 02/16/17 16:05) Past Medical History Cardiac Medical History: Reports: Hypertension Denies: Congestive Heart Failure, Coronary Artery Disease, Myocardial Infarction Pulmonary Medical History: Denies: Asthma, Bronchitis, Chronic Obstructive Pulmonary Disease (COPD), Pneumonia, Tuberculosis Neurological Medical History: Denies: Seizures Renal/ Medical History: Reports: End Stage Renal Disease GI Medical History: Reports: Gastroesophageal Reflux Disease Denies: Cirrhosis, Hepatitis, Hiatal Hernia Musculoskeltal Medical History: Denies: Arthritis Psychiatric Medical History: Denies: Bipolar Disorder, Depression Hematology: Reports: Anemia, Bleeding Tendencies Denies: Sickle Cell Disease Past Surgical History Past Surgical History: Denies: Pacemaker Family History Family History: Reviewed & Not Pertinent Parental Family History Reviewed: No Children Family History Reviewed: No Sibling(s) Family History Reviewed.: No Social History Smoking Status: Unknown if Ever Smoked Frequency of Alcohol Use: None Hx Recreational Drug Use: No Drugs: None Hx Prescription Drug Abuse: No Physical Exam Vital Signs: Temp Pulse Resp BP Pulse Ox 98.4 F 69 16 147/76 H 99 02/19/17 06:45 02/19/17 10:15 02/19/17 10:15 02/19/17 10:15 02/19/17 10:15 Intake & Output 02/18/17 02/19/17 02/20/17 06:59 06:59 06:59 Weight 86.183 kg Additional comments: Constitutional: Well-developed well-nourished gentleman. No apparent acute distress. Eyes: Mucous membranes pink and moist, pupils equal and reactive to light. Conjunctiva normal. Cornea normal. ENT: Hearing grossly normal. External pinna normal to inspection. Teeth missing. Tongue normal to inspection. Cardiac: Heart sounds 1 and 2 normal. Respiratory breath sounds are present bilaterally, normal. Normal respiratory effort. Psychiatric: Judgment, memory, insight seem normal. Mood is pleasant and appropriate. Extremities: Upper extremities show normal range of movement. Pulses present noted to the radial arteries. Capillary refill normal. No cyanosis noted. No muscle wasting noted. Left arm brachiocephalic fistula, very firm suggestive of cephalad stenosis. Bruit seems fairly normal. . Impression/Plan Plan: In this patient with a malfunctioning his AV fistula, angioplasty and possibly angiogram indicated. The risks, and, benefits, expected outcome and alternatives are familiar to him and he wishes to proceed.
--- NOTE | 2017-02-19 11:10 | PDOC DISCHARGE SUMMARY ---
Discharge Summary (SDC) - Discharge Final Diagnosis: #1 malfunctioning arteriovenous fistula. 2. End-stage renal disease. Date of Surgery: 02/19/17 Discharge Date: 02/19/17 Condition: Good Forms: ASU Anesthesia D/C Instruction, Discharge POC-Surgical Service Treatment or Instructions: Discharge home [after recovery per ASU criteria]. Diet , [renal],as tolerated, when fully awake advance as tolerated. Activities within moderation encouraged. Follow up in my office by appointment in about 1 month call for appointment. Leave wounds [covered], [keep clean and dry, until hemodialysis. Hold of on school/work [until evaluation in office]. May shower [in 48 hrs], [try to keep operated area as dry as possible]. Referrals: JORGE DHILLON MD [ACTIVE STAFF] - Respiratory Treatments at Home: Deep Breathing/Coughing Discharge Activity: No Driving, No tub bath Home Care Assistance: None Needed Report the Following to Your Physician Immediately: Shortness of Breath, Nausea , Vomiting, Increase in Pain, Fever over 101 Degrees, Unusual Bleeding, Redness , Swelling, Warmth, Increased Soreness, Drainage-Yellow, Drainage-Kay, Drainage -Green, Drainage-Foul Smelling, Numbness, Wheezing, IV Site Infection Signs, Urinary Infection Signs
[2017-02-19 11:15] VITALS: BP 148/80
--- NOTE | 2017-02-19 11:17 | Operative Report ---
Operative Report DATE OF SURGERY: 02/19/17 PREOPERATIVE DIAGNOSIS: #1 malfunctioning arteriovenous fistula. 2. End-stage renal disease. POSTOPERATIVE DIAGNOSIS: .#1 malfunctioning arteriovenous fistula. Post angioplasty. 2. End-stage renal disease. OPERATION: 1. Needle entrance into arteriovenous fistula. 2. Balloon angioplasty of fistula. 3. Angioplasty with drug-eluting balloon. 4. Angiogram and interpretation. SURGEON: JORGE RIOS KID CLUB ATTENDANT: None ANESTHESIA: Moderate Sedation TISSUE REMOVED OR ALTERED: Not applicable. COMPLICATIONS: None ESTIMATED BLOOD LOSS: 5 mL. INTRAOPERATIVE FINDINGS: Of a well founded left arm brachiocephalic fistula. Firm initially, suggestive of cephalad stenosis. The very tight stenosis noted easily 90% of the adjacent lumen at the distal cephalic and up to the junction with the subclavian. This was corrected with a 7 mm balloon which sizes up well with the adjacent lumen. There was some rebound with a residual patch no more than 5% stenosis. A 9 mm balloon was used to angioplasty the superior vena cava and the proximal subclavian. The reason for this is because of washout phenomena noted in the subclavian at that area and also the presence of a substantial collateral. No waist was encountered and these some improvement of the collaterals. Drug-eluting balloon, 7 mm, was deployed across the area of stenosis cephalad distal cephalic. Sustaining resolution of the stenosis pertaining the final angiogram. The fistula was softer at the end of the procedure was still somewhat firm. It will need to be watched. PROCEDURE: PROCEDURE: After verifying the procedure and having obtained informed consent, the patient's left arm was prepared with Chlorhexidine and draped out with sterile linen. Local anesthesia infiltrated. Percutaneous access into the fistula ,[ antegrade], obtained about [2 cm] from the arteriovenous anastomosis using a micro puncture needle followed by micro puncture wire and then a micro puncture catheter. \A 0.035 [place] wire was inserted, and over this, a 7 Indian short introducer was placed, this was followed by a [7-mm ] angioplasty balloon . Angioplasty was serially done at the culprit area in the distal cephalic vein. Inflating with a 3 mils syringe for 2 minutes. A 9 mm angioplasty balloon was now inserted and used to sequentially dilated from the superior vena cava up to the subclavian. Very little waist encountered. Completion angiogram demonstrated satisfactory outcome except for slight rebound in the distal cephalic. In this patient who had a similar procedure done just a few months ago a drug- eluting balloon seems well indicated. A 7 mm drug-eluting balloon was therefore placed across the culprit area of the distal cephalic vein and inflated up to 11 avril sustained for 3 minutes. It was then deflated and reinflated somewhat more proximally at the same vein. Completion angiogram demonstrated a very satisfactory outcome. The fistula was much softer, appropriately was still somewhat firm of the procedure. It was decided to accept the results..]. Completion angiogram demonstrated [satisfactory result]. The instrumentation was now withdrawn over and pressure for 10 minutes. Dressings applied, procedure concluded. Exposure time: 2.9 minutes Radiation: 59.2 mg abel per centimeters. Contrast: 25 mm of Isovue-300, low osmolality. DICTATING PHYSICIAN: JORGE DHILLON M.D. cc: JORGE DHILLON M.D. ([id number]) >>
--- NOTE | 2017-02-19 16:06 | RADIOLOGY REPORT (SQ) ---
EXAM DESCRIPTION: FISTULAGRAM W/PLASTY COMPLETED DATE/TIME: 02/19/2017 2:41 pm REASON FOR STUDY: T82.858A T82.858A STENOSIS OF OTHER VASCULAR PROSTH DEV/GRFT, INIT COMPARISON: 10/23/2016 FLUOROSCOPY TIME: 2.9 minutes 28 digital Images saved to PACS TECHNIQUE: Intra-operative images acquired during surgical procedure to evaluate progress. NUMBER OF IMAGES: 28 digital images saved to pac's LIMITATIONS: None. FINDINGS: Imaging in fluoroscopy during left upper extremity dialysis access evaluation and plasty b y Dr. Hunter . Please refer to the operative report for further details. IMPRESSION: INTRA PROCEDURAL IMAGING ABOVE . COMMENT: Quality ID 145: Final reports for procedures using fluoroscopy that document radiation exp osure indices, or exposure time and number of fluorographic images (if radiation exposure indices are not available) Please consult full operative report of the attending physician for description of the procedure. TECHNICAL DOCUMENTATION: JOB ID: [id number] [employer]- All Rights Reserved
== END 2017-02-19 10:40 | disposition home or self-care (01) ==
LOC: CCL 05:50
PROVIDERS: ATTEND Surgery
PROC: 057F3DZ Dilation of Left Cephalic Vein with Intraluminal Device, Percutaneous Approach (ICD-10-PCS; principal; 2017-02-19)
DX: T82.858A Stenosis of other vascular prosthetic devices, implants and grafts, initial encounter (principal); Y83.2 Surgical operation with anastomosis, bypass or graft as the cause of abnormal reaction of the patient, or of later complication, without mention of misadventure at the time of the procedure; I10 Essential (primary) hypertension; N18.6 End stage renal disease; Z99.2 Dependence on renal dialysis; K21.9 Gastro-esophageal reflux disease without esophagitis; D63.1 Anemia in chronic kidney disease; D68.9 Coagulation defect, unspecified
CPT/HCPCS: 36415; 85027; 80048; 36902; C1752; C1725; C1887; C1894 ×2; Q9967; C1769; J2250; J1644 ×2; J3010; J3490; C2623

== ENCOUNTER 2017-05-14 07:50 | Day surgery (SDC) | payer MEDICARE, OTHER ==
[~2017-05-14 07:50] MED LIST changes: -BUPIVACAINE HCL 0.75% INJ/PF (7.5 MG/1 ML) 10 ML SDV OD PRN; +DIAZEPAM 5 MG TABLET PO PRN; -KETOROLAC TROMETHAMINE 0.45% 4 DROP/0.4 ML DROPERETTE OD PRN; -LIDOCAINE 4% INJ/PF (40 MG/ML) 5 ML AMPUL OD PRN; +OXYCODONE-ACETAMINOPHEN 5-325 MG TABLET PO PRN
[2017-05-14 08:36] LABS: HEMATOCRIT 29.1 % (37.9-51.0); HEMOGLOBIN 9.9 g/dL (13.5-17.0); MEAN CORPUSCULAR HEMOGLOBIN 28.8 pg (27.0-33.4); MEAN CORPUSCULAR VOLUME 85 fl (80-97); PLATELET COUNT 159 10^3/uL (150-450); RED BLOOD COUNT 3.44 10^6/uL (4.35-5.55); RED CELL DISTRIBUTION WIDTH 16.5 % (11.5-14.0); WHITE BLOOD COUNT 4.5 10^3/uL (4.0-10.5)
[2017-05-14 08:57] LABS: ANION GAP 14 (5-19); BLOOD UREA NITROGEN 47 mg/dL (7-20); CALCIUM 10.1 mg/dL (8.4-10.2); CARBON DIOXIDE 26 mmol/L (22-30); CHLORIDE 100 mmol/L (98-107); GLUCOSE 85 mg/dL (75-110); POTASSIUM 5.8 mmol/L (3.6-5.0); SODIUM 140.4 mmol/L (137-145)
[2017-05-14] MEDS ORDERED: LIDOCAINE 0.5% INJ-PF (5 MG/ML) 50 ML SDV ONE (08:57)
[2017-05-14] MEDS ORDERED: MIDAZOLAM 2 MG/2 ML INJ ONE (08:58)
[2017-05-14] MEDS ORDERED: FENTANYL CITRATE INJ/PF 100 MCG/2 ML AMPUL ONE (08:58)
[2017-05-14] MEDS ORDERED: HEPARIN SOD (PORCINE) 5,000 UNIT/ML 1 ML SYRINGE ONE (08:58)
[2017-05-14] MEDS ORDERED: SODIUM POLYSTYRENE SULFONATE 15 GM/60 ML ONE (09:08)
[2017-05-14] MEDS ORDERED: SODIUM POLYSTYRENE SULFONATE 15 GM/60 ML PO ONE (10:00)
[2017-05-14] MEDS ORDERED: NORMAL SALINE 1000 ML 1,000 ML IV PRN (11:00)
[2017-05-14] MEDS ORDERED: LIDOCAINE 0.5% INJ-PF (5 MG/ML) 50 ML SDV INJ PRN (11:01)
[2017-05-14] MEDS ORDERED: NORMAL SALINE IV ONE (11:15)
[2017-05-14] MEDS ORDERED: HEPARIN SODIUM PORCINE IV ONE (11:15)
--- NOTE | 2017-05-14 11:30 | RADIOLOGY REPORT (SQ) ---
EXAM DESCRIPTION: FISTULAGRAM W/PLASTY COMPLETED DATE/TIME: 05/14/2017 10:56 am REASON FOR STUDY: T82.858 T82.858A STENOSIS OF OTHER VASCULAR PROSTH DEV/GRFT, INIT COMPARISON: None. FLUOROSCOPY TIME: 0.5 minutes. 22 images saved to PACS. TECHNIQUE: Intra-operative images acquired during surgical procedure to evaluate progress. NUMBER OF IMAGES: 22 images. LIMITATIONS: None. FINDINGS: Imaging in fluoroscopy during left upper extremity dialysis access evaluation and plasty b y Dr. Hunter . Please refer to the operative report for further details. IMPRESSION: INTRA PROCEDURAL IMAGING ABOVE . COMMENT: Quality ID [id number]: Final reports for procedures using fluoroscopy that document radiation exp osure indices, or exposure time and number of fluorographic images (if radiation exposure indices are not available) Please consult full operative report of the attending physician for description of the procedure. TECHNICAL DOCUMENTATION: JOB ID: [id number] [employer]- All Rights Reserved
--- NOTE | 2017-05-14 11:59 | PDOC DISCHARGE SUMMARY ---
Discharge Summary (SDC) - Discharge Final Diagnosis: #1 malfunctioning AV fistula. 2. End-stage renal disease on hemodialysis. 3. Hypertension. Date of Surgery: 05/14/17 Discharge Date: 05/14/17 Condition: Good Forms: Sedation D/C Instructions, Discharge POC-Surgical Service Treatment or Instructions: Discharge home [after recovery per ASU criteria]. Diet , [renal],as tolerated, when fully awake advance as tolerated. Activities within moderation encouraged. Follow up in my office by appointment in about 2 months. Call for appointment. Leave wounds [covered], [keep clean and dry, until hemodialysis]. Meds per med rec. Hold of on school/work [until evaluation in office]. May shower [in 48 hrs], [try to keep operated area as dry as possible]. Referrals: JORGE DHILLON MD [ACTIVE STAFF] - (Follow up as scheduled) Discharge Diet: Other (Comments) - Renal. Respiratory Treatments at Home: Deep Breathing/Coughing Discharge Activity: Activity As Tolerated Home Care Assistance: None Needed Report the Following to Your Physician Immediately: Shortness of Breath, Nausea , Increase in Pain, Fever over 101 Degrees, Unusual Bleeding
[2017-05-14 12:53] VITALS: BP 140/44
--- NOTE | 2017-05-14 14:11 | PDOC H&P ---
General Chief Complaint: The patient was referred in for angiogram and possible angioplasty of left arm AV fistula. The complaint was of increasing pain. - Current Medications/Allergies Home Medications: Cholecalciferol (Vitamin D3) [Vitamin D3] 50,000 unit PO ASDIR 06/16/14 Sevelamer Carbonate [Renvela] 1 tab PO ASDIR PRN 06/16/14 Epoetin Gerber [Procrit Inj 40,000 Unit/1 ml Vial (Oncology)] 40,000 unit SUBCUT .3WEEKS 05/17/16 Acetaminophen [Tylenol Extra Strength] 2 tab PO DAILY PRN 10/20/16 Amlodipine Besylate 10 mg PO DAILY 05/14/17 Leuprolide Acetate [Lupron] 05/14/17 Allergies/Adverse Reactions: No Known Allergies Allergy (Verified 02/16/17 16:05) Past Medical History Cardiac Medical History: Reports: Hypertension Denies: Congestive Heart Failure, Coronary Artery Disease, Myocardial Infarction Pulmonary Medical History: Denies: Asthma, Bronchitis, Chronic Obstructive Pulmonary Disease (COPD), Pneumonia, Tuberculosis Neurological Medical History: Denies: Seizures Renal/ Medical History: Reports: End Stage Renal Disease GI Medical History: Reports: Gastroesophageal Reflux Disease Denies: Cirrhosis, Hepatitis, Hiatal Hernia Musculoskeltal Medical History: Denies: Arthritis Psychiatric Medical History: Denies: Bipolar Disorder, Depression Hematology: Reports: Anemia, Bleeding Tendencies Denies: Sickle Cell Disease Past Surgical History Past Surgical History: Denies: Pacemaker Family History Family History: Reviewed & Not Pertinent Parental Family History Reviewed: No Children Family History Reviewed: No Sibling(s) Family History Reviewed.: No Social History Smoking Status: Never Smoker Frequency of Alcohol Use: None Hx Recreational Drug Use: No Drugs: None Hx Prescription Drug Abuse: No Physical Exam Vital Signs: Temp Pulse Resp BP Pulse Ox 97.2 F 68 18 140/44 H 96 05/14/17 12:00 05/14/17 12:00 05/14/17 12:00 05/14/17 12:00 05/14/17 12:00 Intake & Output 05/13/17 05/14/17 05/15/17 06:59 06:59 06:59 Intake Total 0 Balance 0 Weight 90 kg Additional comments: Constitutional: Well-developed well-nourished gentleman. No apparent acute distress. Eyes: Mucous membranes pink and moist, pupils equal and reactive to light. Conjunctiva normal. Cornea normal. ENT: Hearing grossly normal. External pinna normal to inspection. Some teeth missing. Tongue normal to inspection. Cardiac: Heart sounds 1 and normal. Respiratory breath sounds are present bilaterally, normal. Normal respiratory effort. Psychiatric: Judgment, memory, insight seem normal. Mood is pleasant and appropriate. Extremities: Upper extremities show normal range of movement. Pulses present noted to the radial arteries. Capillary refill normal. No cyanosis noted. No muscle wasting noted. Left arm brachiobasilic fistula, somewhat firm, suggesting cephalad stenosis. Impression/Plan Plan: Angiogram and possible angioplasty recommended. The procedure, its risks, benefits, expected outcome and alternatives are familiar to the patient and he wishes to proceed.
--- NOTE | 2017-05-14 14:15 | Operative Report ---
Operative Report DATE OF SURGERY: 05/14/17 PREOPERATIVE DIAGNOSIS: #1 malfunctioning AV fistula. 2. End-stage renal disease on hemodialysis. 3. Hypertension. POSTOPERATIVE DIAGNOSIS: #1 malfunctioning AV fistula. Post angioplasty. 2. End-stage renal disease on hemodialysis. 3. Hypertension. OPERATION: 1. Needle access into fistula. 2. Angioplasty centrally at subclavian cephalic junction. 3. Angioplasty at 19 cm from anastomosis, in the body of the fistula. 4. Angiogram and interpretation. SURGEON: JORGE RIOS DISC PAD PLATE FILLER: None. ANESTHESIA: Moderate Sedation TISSUE REMOVED OR ALTERED: Not applicable. COMPLICATIONS: None. ESTIMATED BLOOD LOSS: 2 mL. INTRAOPERATIVE FINDINGS: Of a somewhat firm left brachiocephalic fistula. Concordant with stenosis about 70% of movement at 19 cm and a stenosis of about 80% of the lumen of the subclavian cephalic junction. Also another in the swing segment about 3 cm away from the subclavian cephalic junction. All were addressed successfully with a 9 mm angioplasty balloon with complete angiographic resolution of stenoses. No substantial rebound. The prior prior angioplasty was in January 2017 and a drug-eluting balloon was used, the segment used is not recurrent today. PROCEDURE: PROCEDURE: After verifying the procedure and having obtained informed consent, the patient's left arm was prepared with Chlorhexidine and draped out with sterile linen. Local anesthesia infiltrated. Percutaneous access into the fistula ,[ antegrade], obtained about [2 cm] from the arteriovenous anastomosis using a micro puncture needle followed by micro puncture wire and then a micro puncture catheter. Angiogram demonstrated the aforementioned findings. Angioplasty was elected. A 0.035 [place] wire was inserted, and over this, a 7 [place] short introducer was placed, this was followed by a [9-mm ] angioplasty balloon . Angioplasty was done at the subclavian cephalic junction inflating up to 16 avril using a insufflator. Repeated in the slightly more cephalad portion. For 2 minutes. Angioplasty seems successful on angiogram. Angioplasty up to 14 avril done at the segment of 19 cm. Inflating up to 12 atmospheres for 2 minutes.]. Completion angiogram demonstrated [satisfactory result]. The instrumentation was now withdrawn over hand pressure for 10 minutes. Dressings applied, procedure concluded. Exposure time: 0.5 minutes Radiation: 21.39 Joceline abel Contrast: 20 mils of Isovue-300, low osmolality. DICTATING PHYSICIAN: JORGE DHILLON M.D. cc: JORGE DHILLON M.D. ([id number]) >>
== END 2017-05-14 12:00 | disposition home or self-care (01) ==
LOC: CCL 07:50
PROVIDERS: ATTEND Surgery
PROC: 057F3DZ Dilation of Left Cephalic Vein with Intraluminal Device, Percutaneous Approach (ICD-10-PCS; principal; 2017-05-14)
DX: T82.858A Stenosis of other vascular prosthetic devices, implants and grafts, initial encounter (principal); D63.1 Anemia in chronic kidney disease; Y83.2 Surgical operation with anastomosis, bypass or graft as the cause of abnormal reaction of the patient, or of later complication, without mention of misadventure at the time of the procedure; I12.0 Hypertensive chronic kidney disease with stage 5 chronic kidney disease or end stage renal disease; N18.6 End stage renal disease; K21.9 Gastro-esophageal reflux disease without esophagitis; Z79.899 Other long term (current) drug therapy
CPT/HCPCS: 36415; 85027; 80048; 36907; 36902; C1752; C1894; C1769; J2250; J1644 ×2; A9270 ×2; J3010; J3490

== ENCOUNTER 2017-09-24 07:05 | Day surgery (SDC) | payer MEDICARE, OTHER ==
[~2017-09-24 07:05] MED LIST changes: -OXYCODONE-ACETAMINOPHEN 5-325 MG TABLET PO PRN
[2017-09-24 07:58] LABS: HEMATOCRIT 28.4 % (37.9-51.0); HEMOGLOBIN 9.7 g/dL (13.5-17.0); MEAN CORPUSCULAR HEMOGLOBIN 30.5 pg (27.0-33.4); MEAN CORPUSCULAR HGB CONC 34.3 g/dL (32.0-36.0); MEAN CORPUSCULAR VOLUME 89 fl (80-97); PLATELET COUNT 232 10^3/uL (150-450); RED BLOOD COUNT 3.19 10^6/uL (4.35-5.55); RED CELL DISTRIBUTION WIDTH 15.5 % (11.5-14.0); WHITE BLOOD COUNT 5.6 10^3/uL (4.0-10.5)
[2017-09-24] MEDS ORDERED: OXYCODONE-ACETAMINOPHEN 5-325 MG TABLET ONE (08:10)
[2017-09-24 08:17] LABS: ANION GAP 17 (5-19); BLOOD UREA NITROGEN 48 mg/dL (7-20); CARBON DIOXIDE 28 mmol/L (22-30); CHLORIDE 98 mmol/L (98-107); GLUCOSE 85 mg/dL (75-110); POTASSIUM 5.3 mmol/L (3.6-5.0); SODIUM 143.1 mmol/L (137-145)
[2017-09-24] MEDS ORDERED: LIDOCAINE 0.5% INJ-PF (5 MG/ML) 50 ML SDV ONE (09:13)
[2017-09-24] MEDS ORDERED: HEPARIN SOD (PORCINE) 5,000 UNIT/ML 1 ML SYRINGE ONE (09:15)
[2017-09-24] MEDS ORDERED: MIDAZOLAM 2 MG/2 ML INJ ONE (09:15)
[2017-09-24] MEDS ORDERED: FENTANYL CITRATE INJ/PF 100 MCG/2 ML AMPUL ONE (09:15)
[2017-09-24 11:20] VITALS: BP 158/78
--- NOTE | 2017-09-24 11:30 | Operative Report ---
Operative Report DATE OF SURGERY: 09/24/17 PREOPERATIVE DIAGNOSIS: 1. Malfunctioning AV fistula, left brachiocephalic. 2. End-stage renal disease on hemodialysis. POSTOPERATIVE DIAGNOSIS: 1. Malfunctioning AV fistula, left brachiocephalic. 2. End-stage renal disease on hemodialysis. OPERATION: 1. Needle entry into arteriovenous fistula. 2. Peripheral angioplasty. 3. Central angioplasty. 4. Drug-eluting balloon angioplasty. # 5 angiogram and interpretation. SURGEON: JORGE RIOS NUTRITION HELPER: None. ANESTHESIA: Moderate Sedation TISSUE REMOVED OR ALTERED: Not applicable. COMPLICATIONS: None. ESTIMATED BLOOD LOSS: 2 mL. INTRAOPERATIVE FINDINGS: Of a somewhat firm, well-established left brachiocephalic fistula, hyper pulsatile. Culprit lesions are at 20 cm in the fistula estimated 50% stenosis. Significance confirmed by palpation before and after, it is softer cephalad after angioplasty. And angioplasty done also at the cephalic subclavian junction where there is a stenosis of about 70% of the adjacent lumen. Almost entirely corrected with angioplasty with a 9 mm balloon , less than 5% residual stenosis. Small areas of stenosis in the cephalad cephalic vein also. The central veins look fine with no obvious stenosis there. Postprocedure the fistula appropriately softer. PROCEDURE: PROCEDURE: After verifying the procedure and having obtained informed consent, the patient's left arm was prepared with Chlorhexidine and draped out with sterile linen. Local anesthesia infiltrated. Percutaneous access into the fistula ,[ antegrade], obtained about [2 cm] from the arteriovenous anastomosis using a micro puncture needle followed by micro puncture wire and then a micro puncture catheter. Angiogram demonstrated the aforementioned findings. Angioplasty was elected. A 0.035 [place] wire was inserted, and over this, a 6 [place] short introducer was placed, this was followed by a [8-mm ] angioplasty balloon . Angioplasty was At the central stenosis. Inflating up to 18 atmospheres for 3 minutes. The balloon I withdrawn and inflated at 20 cm. Inflation done using hand injection for 3 minutes. Completion angiogram demonstrated residual stenosis at the cephalic subclavian junction. The 6 [place] introducer was replaced with a 7 [place] introducer over the Glidewire. A 9 mm high-pressure angioplasty balloon was no inserted and placed over the culprit area and inflated up to 18 avril. This was sustained for 4 minutes. Completion angiogram demonstrated near resolution of the stenosis. A drug-eluting balloon was now placed over the Glidewire and positioned at the culprit area at the cephalic subclavian. It was inflated up to 11 minutes and sustained for 4 minutes. It was not deflated..]. Completion angiogram demonstrated [satisfactory result]. The hand pressure for 10 minutes. Dressings applied, procedure concluded. Exposure time:1.5 minutes. Radiation: 39.31 Joceline abel. Contrast: 25 mL of Isovue-300, low osmolality. DICTATING PHYSICIAN: JORGE DHILLON M.D. cc: JORGE DHILLON M.D. ([id number]) >>
--- NOTE | 2017-09-24 11:32 | Discharge Summary ---
Discharge Summary (SDC) - Discharge Final Diagnosis: #1 fistula malfunction. 2. End-stage renal disease on hemodialysis. 3. Hypertension. Date of Surgery: 09/24/17 Discharge Date: 09/24/17 Condition: Good Forms: Discharge POC-Surgical Service Treatment or Instructions: CONTINUE ALL HOME MEDS LEAVE DRESSING ON FOR 48 HOURS TAKE TYLENOL NEEDED FOR PAIN FOLLOW UP WITH DR DHILLON SCHEDULED CALL CLINIC WITH ANY QUESTIONS OR CONCERNS Referrals: JORGE DHILLON MD [ACTIVE STAFF] - Discharge Diet: Other (Comments) - Renal. Respiratory Treatments at Home: Deep Breathing/Coughing Discharge Activity: Activity As Tolerated Report the Following to Your Physician Immediately: Shortness of Breath, Unusual Bleeding
--- NOTE | 2017-09-24 14:07 | RADIOLOGY REPORT (SQ) ---
EXAM DESCRIPTION: FISTULAGRAM W/PLASTY; ANGIOPLASTY BRACHIOCEPHALIC COMPLETED DATE/TIME: 09/24/2017 10:59 am REASON FOR STUDY: T82.858A T82.858A STENOSIS OF OTHER VASCULAR PROSTH DEV/GRFT, INIT COMPARISON: None. FLUOROSCOPY TIME: 1.5 minute. 40 images saved to PACS. TECHNIQUE: Intra-operative images acquired during surgical procedure to evaluate progress. NUMBER OF IMAGES: 40 images. LIMITATIONS: None. FINDINGS: Imaging in fluoroscopy during left upper extremity dialysis access evaluation and plasty b y Dr. Hunter . Please refer to the operative report for further details. IMPRESSION: INTRA PROCEDURAL IMAGING ABOVE . COMMENT: Quality ID 145: Final reports for procedures using fluoroscopy that document radiation exp osure indices, or exposure time and number of fluorographic images (if radiation exposure indices are not available) Please consult full operative report of the attending physician for description of the procedure. TECHNICAL DOCUMENTATION: JOB ID: [id number] [employer]- All Rights Reserved Reading location - IP/workstation name: [email or web address]
--- NOTE | 2017-09-24 14:07 | RADIOLOGY REPORT (SQ) ---
EXAM DESCRIPTION: FISTULAGRAM W/PLASTY; ANGIOPLASTY BRACHIOCEPHALIC COMPLETED DATE/TIME: 09/24/2017 10:59 am REASON FOR STUDY: T82.858A T82.858A STENOSIS OF OTHER VASCULAR PROSTH DEV/GRFT, INIT COMPARISON: None. FLUOROSCOPY TIME: 1.5 minute. 40 images saved to PACS. TECHNIQUE: Intra-operative images acquired during surgical procedure to evaluate progress. NUMBER OF IMAGES: 40 images. LIMITATIONS: None. FINDINGS: Imaging in fluoroscopy during left upper extremity dialysis access evaluation and plasty b y Dr. Hunter . Please refer to the operative report for further details. IMPRESSION: INTRA PROCEDURAL IMAGING ABOVE . COMMENT: Quality ID 145: Final reports for procedures using fluoroscopy that document radiation exp osure indices, or exposure time and number of fluorographic images (if radiation exposure indices are not available) Please consult full operative report of the attending physician for description of the procedure. TECHNICAL DOCUMENTATION: JOB ID: [id number] [employer]- All Rights Reserved Reading location - IP/workstation name: [email or web address]
== END 2017-09-24 11:34 | disposition home or self-care (01) ==
LOC: CCL 07:05
PROVIDERS: ATTEND Surgery
DX: T82.858A Stenosis of other vascular prosthetic devices, implants and grafts, initial encounter (principal); Y83.2 Surgical operation with anastomosis, bypass or graft as the cause of abnormal reaction of the patient, or of later complication, without mention of misadventure at the time of the procedure; I12.0 Hypertensive chronic kidney disease with stage 5 chronic kidney disease or end stage renal disease; N18.6 End stage renal disease; Z99.2 Dependence on renal dialysis
CPT/HCPCS: 36415; 85027; 80048; 36907; 36902; C2623; C1752; C1887; C1894; C1769; J2250; J1644 ×2; A9270 ×2; J3010; J3490

== ENCOUNTER 2018-03-18 06:04 | Day surgery (SDC) | payer MEDICARE, OTHER ==
[2018-03-18 06:41] LABS: ABSOLUTE EOSINOPHILS # (AUTO) 0.1 10^3/uL (0.0-0.6); ABSOLUTE LYMPHOCYTES (AUTO) 1.3 10^3/uL (0.5-4.7); ABSOLUTE MONOCYTES (AUTO) 0.3 10^3/uL (0.1-1.4); BASOPHILS % (AUTO) 1.2 % (0-2); EOSINOPHILS % (AUTO) 1.9 % (0-6); HEMATOCRIT 29.7 % (37.9-51.0); HEMOGLOBIN 9.7 g/dL (13.5-17.0); LYMPHOCYTES % (AUTO) 35.7 % (13-45); MEAN CORPUSCULAR HEMOGLOBIN 28.8 pg (27.0-33.4); MEAN CORPUSCULAR HGB CONC 32.7 g/dL (32.0-36.0); MEAN CORPUSCULAR VOLUME 88 fl (80-97); MONOCYTES % (AUTO) 7.9 % (3-13); PLATELET COUNT 244 10^3/uL (150-450); RED BLOOD COUNT 3.38 10^6/uL (4.35-5.55); RED CELL DISTRIBUTION WIDTH 16.6 % (11.5-14.0); SEGMENTED NEUTROPHILS % (AUTO) 53.3 % (42-78); TOTAL CELLS COUNTED % (AUTO) 100 %; WHITE BLOOD COUNT 3.7 10^3/uL (4.0-10.5)
[2018-03-18 07:00] LABS: ANION GAP 16 (5-19); BLOOD UREA NITROGEN 43 mg/dL (7-20); CALCIUM 9.6 mg/dL (8.4-10.2); CARBON DIOXIDE 26 mmol/L (22-30); CHLORIDE 96 mmol/L (98-107); GLUCOSE 90 mg/dL (75-110); POTASSIUM 5.3 mmol/L (3.6-5.0); SODIUM 137.5 mmol/L (137-145)
[2018-03-18] MEDS ORDERED: OXYCODONE-ACETAMINOPHEN 5-325 MG TABLET ONE (07:02)
[2018-03-18] MEDS ORDERED: DIAZEPAM 5 MG TABLET ONE (07:02)
[2018-03-18] MEDS ORDERED: LIDOCAINE 0.5% INJ-PF (5 MG/ML) 50 ML SDV ONE (08:52)
[2018-03-18] MEDS ORDERED: FENTANYL CITRATE INJ/PF 100 MCG/2 ML AMPUL ONE (08:53)
[2018-03-18] MEDS ORDERED: MIDAZOLAM 2 MG/2 ML INJ ONE (08:53)
[2018-03-18] MEDS ORDERED: HEPARIN SOD (PORCINE) 5,000 UNIT/ML 1 ML SYRINGE ONE (08:53)
--- NOTE | 2018-03-18 10:59 | PDOC H&P ---
General Chief Complaint: This patient was referred across because of inadequate function of his AV fistula. - Current Medications/Allergies Home Medications: Cholecalciferol (Vitamin D3) [Vitamin D3] 50,000 unit PO ASDIR 06/16/14 Sevelamer Carbonate [Renvela] 1 tab PO ASDIR PRN 06/16/14 Epoetin Gerber [Procrit Inj 40,000 Unit/1 ml Vial (Oncology)] 40,000 unit SUBCUT .2WEEKS 05/17/16 Acetaminophen [Tylenol Extra Strength] 2 tab PO DAILY PRN 10/20/16 Amlodipine Besylate 10 mg PO DAILY 05/14/17 Leuprolide Acetate [Lupron] 1 mg INJ ASDIR PRN 05/14/17 Oxycodone HCl/Acetaminophen [Percocet 5-325 mg Tablet] 1 tab PO PRN PRN Allergies/Adverse Reactions: No Known Allergies Allergy (Verified 03/18/18 06:50) Past Medical History Cardiac Medical History: Reports: Hypertension Denies: Congestive Heart Failure, Coronary Artery Disease, Myocardial Infarction Pulmonary Medical History: Denies: Asthma, Bronchitis, Chronic Obstructive Pulmonary Disease (COPD), Pneumonia, Tuberculosis Neurological Medical History: Denies: Seizures Renal/ Medical History: Reports: End Stage Renal Disease GI Medical History: Reports: Gastroesophageal Reflux Disease Denies: Cirrhosis, Hepatitis, Hiatal Hernia Musculoskeltal Medical History: Denies: Arthritis Psychiatric Medical History: Denies: Bipolar Disorder, Depression Hematology: Reports: Anemia, Bleeding Tendencies Denies: Sickle Cell Disease Past Surgical History Past Surgical History: Denies: Pacemaker Family History Family History: Reviewed & Not Pertinent Parental Family History Reviewed: No Children Family History Reviewed: No Sibling(s) Family History Reviewed.: No Social History Smoking Status: Unknown if Ever Smoked Frequency of Alcohol Use: None Hx Recreational Drug Use: No Drugs: None Hx Prescription Drug Abuse: No Physical Exam Vital Signs: Temp Pulse Resp BP Pulse Ox 98.2 F 67 16 157/74 H 94 03/18/18 06:00 03/18/18 10:45 03/18/18 10:45 03/18/18 10:45 03/18/18 10:45 Intake & Output 03/17/18 03/18/18 03/19/18 06:59 06:59 06:59 Weight 90.718 kg Additional comments: Constitutional: Well-developed well-nourished gentleman. No apparent acute distress. Eyes: Mucous membranes pink and moist, pupils equal and reactive to light. Conjunctiva normal. Cornea normal. ENT: Hearing grossly normal. External pinna normal to inspection. Teeth mostly intact. Tongue normal to inspection. Cardiac: Heart sounds normal. Respiratory breath: Normal respiratory effort. Psychiatric: Judgment, memory, insight seem normal. Mood is pleasant and appropriate. Extremities: Upper extremities show normal range of movement. Pulses present noted to the radial arteries. Capillary refill normal. No cyanosis noted. No muscle wasting noted. Left arm brachiocephalic fistula, somewhat tortuous with areas of ectasia. Very firm suggestive of cephalad stenosis. Impression/Plan Plan: This patient with a malfunctioning AV fistula is indicated for fistula angiogram and hopefully correct correction. The risks, benefits, expected outcome and alternatives are familiar to him and he wishes to proceed.
--- NOTE | 2018-03-18 11:01 | Discharge Summary ---
Discharge Summary (SDC) - Discharge Final Diagnosis: #1 malfunctioning AV fistula, left brachiocephalic. 2. End-stage renal disease on hemodialysis. 3. Hypertension. Date of Surgery: 03/18/18 Discharge Date: 03/18/18 Condition: Good Forms: Sedation D/C Instructions, Discharge POC-Surgical Service Treatment or Instructions: Discharge home [after recovery per ASU criteria]. Diet , [renal],as tolerated, when fully awake advance as tolerated. Activities within moderation encouraged. Follow up in my office by appointment in about [1 month. Call for appointment. Leave wounds [covered], [keep clean and dry, until hemodialysis. Meds per med rec. May shower [in 48 hrs], [try to keep operated area as dry as possible]. Referrals: JORGE HUNTER MD [ACTIVE STAFF] - (Pt states Dr Hunter told him to follow up in 1 month pt prefers to make her own appointment ) Discharge Diet: Other (Comments) - Renal. Respiratory Treatments at Home: Deep Breathing/Coughing Discharge Activity: Activity As Tolerated Home Care Assistance: None Needed Report the Following to Your Physician Immediately: Shortness of Breath, Nausea , Vomiting, Increase in Pain, Fever over 101 Degrees, Unusual Bleeding
--- NOTE | 2018-03-18 11:08 | Operative Report ---
Operative Report DATE OF SURGERY: 03/18/18 PREOPERATIVE DIAGNOSIS: #1 malfunctioning AV fistula, left brachiocephalic. 2. End-stage renal disease on hemodialysis. 3. Hypertension. POSTOPERATIVE DIAGNOSIS: #1 malfunctioning AV fistula, left brachiocephalic. 2. End-stage renal disease on hemodialysis. 3. Hypertension. OPERATION: 1. Needle access to AV fistula left brachiocephalic. 2. Angioplasty. 3. Drug-eluting balloon angioplasty. 4. Angiogram and interpretation. SURGEON: JORGE RIOS INDUSTRIAL TRUCK MECHANIC: None. ANESTHESIA: Moderate Sedation TISSUE REMOVED OR ALTERED: Not applicable. COMPLICATIONS: None. ESTIMATED BLOOD LOSS: 2 mL. INTRAOPERATIVE FINDINGS: Of a well founded left arm brachiocephalic fistula. Starting about 3 cm below the elbow. Very firm in the first 15 cm soft above. Ectasia noted in 2 areas about 3 cm, in mid arm. This seems to be the areas of frequent needle access. The findings are concordant with a tight stenosis easily 80% of the adjacent lumen at about 20 cm from the anastomosis. In addition a tight stenosis at the junction of the cephalic and subclavian about 70% of the adjacent lumen. Both of these were successfully resolved by angioplasty with a 9 mm balloon at the cephalic to subclavian and a 9 mm balloon at the 20 cm andi. Drug-eluting balloon was used in the mid fistula. The hope being to reduce the chance of restenosis. About 7 months ago the patient had a drug-eluting balloon used at 9 mm in the cephalic to subclavian junction. PROCEDURE: Indication: This patient has hemodialysis through his left arm brachiocephalic fistula. Increased pressures have been noted and he is therefore indicated for angiogram. The expectation is to evaluate for defect in the correct possible with angioplasty or other techniques. The hope is to keep this fistula functioning for hemodialysis for as long as possible. PROCEDURE: After verifying the procedure and having obtained informed consent, the patient's left arm was prepared with Chlorhexidine and draped out with sterile linen. Local anesthesia infiltrated. Percutaneous access into the fistula ,[ antegrade], obtained about [2 cm] from the arteriovenous anastomosis using a micro puncture needle followed by micro puncture wire and then a micro puncture catheter. A 0.035 [place] wire was inserted, and over this, a 7 [place] short introducer was placed.Angiogram demonstrated the aforementioned findings. Angioplasty was elected. This was followed by a [8 -mm] angioplasty balloon . Angioplasty was Done at the cephalic subclavian junction and then subsequently at the mid arm 20 cm area. Inflating up to 14 avril atmospheres for 2-3 minutes at a time.]. Completion angiogram demonstrated [satisfactory result]. A 9 mm angioplasty balloon was now placed at the cephalic subclavian junction and inflated up to 14 avril. Angiogram demonstrated almost complete resolution of the previous stenosis. This result was accepted.. An 8 mm drug-eluting balloon was now placed over the mid arm segment at 20 cm and inflated up to 11 avril for 4 minutes. Post angiogram was satisfactory and the procedure concluded. The instrumentation was now wit hand-held pressure for 10 minutes. Dressings applied, procedure concluded. Exposure time: 0.9 minutes Radiation: 6.77 Viktoria abel Contrast: 25 mils of Isovue-300, low osmolality. DICTATING PHYSICIAN: JORGE DHILLON M.D. cc: JORGE DHILLON M.D. ([id number]) >>
[2018-03-18 12:03] VITALS: BP 136/63
--- NOTE | 2018-03-18 15:25 | RADIOLOGY REPORT (SQ) ---
EXAM DESCRIPTION: FISTULAGRAM W/PLASTY COMPLETED DATE/TIME: 03/18/2018 1:32 pm REASON FOR STUDY: T82.858A T82.858A STENOSIS OF OTHER VASCULAR PROSTH DEV/GRFT, INIT Z79.899 OTHER RADIATION ONCOLOGY NURSE (CURRENT) DRUG THERAPY FLUOROSCOPY TIME: 2.1 minutes total fluoro time 112 digital Images saved to PACS TECHNIQUE: Intra-operative images acquired during surgical procedure to evaluate progress. NUMBER OF IMAGES: 112 images LIMITATIONS: None. FINDINGS: Intra procedural imaging and fluoro during evaluation and plasty of left upper extremity d ialysis access by Dr. Hunter. Please see his operative report for further details IMPRESSION: Intra procedural imaging and fluoro COMMENT: Quality ID 145: Final reports for procedures using fluoroscopy that document radiation exp osure indices, or exposure time and number of fluorographic images (if radiation exposure indices are not available) Please consult full operative report of the attending physician for description of the procedure. TECHNICAL DOCUMENTATION: JOB ID: [id number] [employer]- All Rights Reserved PROCEDURE: 112 digital images saved to pac's COMPARISON: None. 09/24/2017 Reading location - IP/workstation name: [email or web address]
== END 2018-03-18 11:45 | disposition home or self-care (01) ==
LOC: CCL 06:04
PROVIDERS: ATTEND Surgery
DX: T82.858A Stenosis of other vascular prosthetic devices, implants and grafts, initial encounter (principal); Y83.2 Surgical operation with anastomosis, bypass or graft as the cause of abnormal reaction of the patient, or of later complication, without mention of misadventure at the time of the procedure; I12.0 Hypertensive chronic kidney disease with stage 5 chronic kidney disease or end stage renal disease; N18.6 End stage renal disease; Z99.2 Dependence on renal dialysis; K21.9 Gastro-esophageal reflux disease without esophagitis
CPT/HCPCS: 36415; 85025; 80048; 36902; C1725; C2623; C1752; C1894; C1769; J2250; J1644 ×2; A9270 ×2; J3010; J3490

== ENCOUNTER 2018-05-20 07:08 | Day surgery (SDC) | payer MEDICARE, OTHER ==
[~2018-05-20 07:08] MED LIST changes: +OXYCODONE-ACETAMINOPHEN 5-325 MG TABLET PO PRN
[2018-05-20] MEDS ORDERED: OXYCODONE-ACETAMINOPHEN 5-325 MG TABLET ONE (07:29)
[2018-05-20] MEDS ORDERED: DIAZEPAM 5 MG TABLET ONE (07:29)
[2018-05-20 08:23] LABS: HEMATOCRIT 27.4 % (37.9-51.0); HEMOGLOBIN 8.9 g/dL (13.5-17.0); MEAN CORPUSCULAR HEMOGLOBIN 26.6 pg (27.0-33.4); MEAN CORPUSCULAR HGB CONC 32.6 g/dL (32.0-36.0); MEAN CORPUSCULAR VOLUME 82 fl (80-97); PLATELET COUNT 279 10^3/uL (150-450); RED BLOOD COUNT 3.36 10^6/uL (4.35-5.55); RED CELL DISTRIBUTION WIDTH 18.8 % (11.5-14.0); WHITE BLOOD COUNT 5.1 10^3/uL (4.0-10.5)
[2018-05-20 08:37] LABS: ANION GAP 9 (5-19); BLOOD UREA NITROGEN 29 mg/dL (7-20); CALCIUM 8.9 mg/dL (8.4-10.2); CARBON DIOXIDE 32 mmol/L (22-30); CHLORIDE 98 mmol/L (98-107); GLUCOSE 83 mg/dL (75-110); POTASSIUM 4.4 mmol/L (3.6-5.0); SODIUM 139.2 mmol/L (137-145)
[2018-05-20] MEDS ORDERED: LIDOCAINE 0.5% INJ-PF (5 MG/ML) 50 ML SDV ONE (09:42)
[2018-05-20] MEDS ORDERED: MIDAZOLAM 2 MG/2 ML INJ ONE (09:43)
[2018-05-20] MEDS ORDERED: FENTANYL CITRATE INJ/PF 100 MCG/2 ML AMPUL ONE (09:43)
[2018-05-20] MEDS ORDERED: HEPARIN SOD (PORCINE) 5,000 UNIT/ML 1 ML SYRINGE ONE (09:43)
--- NOTE | 2018-05-20 11:26 | PDOC H&P ---
General Chief Complaint: This patient was referred across for angiogram, increased limb size was noted. - Diagnosis (1) Dialysis AV fistula malfunction Is this a Current Diagnosis?: Yes (2) ESRD on hemodialysis Is this a Current Diagnosis?: Yes (3) HTN (hypertension) Is this a Current Diagnosis?: Yes - Current Medications/Allergies Home Medications: Cholecalciferol (Vitamin D3) [Vitamin D3] 50,000 unit PO ASDIR 06/16/14 Sevelamer Carbonate [Renvela] 1 tab PO ASDIR PRN 06/16/14 Epoetin Gerber [Procrit Inj 40,000 Unit/1 ml Vial (Oncology)] 40,000 unit SUBCUT .2WEEKS 05/17/16 Acetaminophen [Tylenol Extra Strength] 2 tab PO DAILY PRN 10/20/16 Amlodipine Besylate 10 mg PO DAILY 05/14/17 Leuprolide Acetate [Lupron] 1 mg INJ ASDIR PRN 05/14/17 Oxycodone HCl/Acetaminophen [Percocet 5-325 mg Tablet] 1 tab PO PRN PRN 09/21/17 Allergies/Adverse Reactions: No Known Allergies Allergy (Verified 03/18/18 06:50) Past Medical History Cardiac Medical History: Reports: Hypertension Denies: Congestive Heart Failure, Coronary Artery Disease, Myocardial Infarction Pulmonary Medical History: Denies: Asthma, Bronchitis, Chronic Obstructive Pulmonary Disease (COPD), Pneumonia, Tuberculosis Neurological Medical History: Denies: Seizures Renal/ Medical History: Reports: End Stage Renal Disease GI Medical History: Reports: Gastroesophageal Reflux Disease Denies: Cirrhosis, Hepatitis, Hiatal Hernia Musculoskeltal Medical History: Denies: Arthritis Psychiatric Medical History: Denies: Bipolar Disorder, Depression Hematology: Reports: Anemia, Bleeding Tendencies Denies: Sickle Cell Disease Past Surgical History Past Surgical History: Denies: Pacemaker Family History Family History: Reviewed & Not Pertinent Parental Family History Reviewed: No Children Family History Reviewed: No Sibling(s) Family History Reviewed.: No Social History Smoking Status: Never Smoker Frequency of Alcohol Use: None Hx Recreational Drug Use: No Drugs: None Hx Prescription Drug Abuse: No Physical Exam Vital Signs: Temp Pulse Resp BP Pulse Ox 98.1 F 67 16 132/70 H 99 05/20/18 08:09 05/20/18 08:09 05/20/18 08:09 05/20/18 08:09 05/20/18 08:09 Intake & Output 05/19/18 05/20/18 05/21/18 06:59 06:59 06:59 Weight 90.718 kg Additional comments: Constitutional: Well-developed well-nourished gentleman. No apparent acute distress. Eyes: Mucous membranes pink and moist, pupils equal and reactive to light. Conjunctiva normal. Cornea normal. ENT: Hearing grossly normal. External pinna normal to inspection. Teeth some intact. Tongue normal to inspection. Cardiac: Heart sounds normal. Respiratory: Normal respiratory effort. Psychiatric: Judgment, memory, insight seem normal. Mood is pleasant and appropriate. Extremities: Upper extremities show normal range of movement. Pulses present noted to the radial arteries. Capillary refill normal. No cyanosis noted. No muscle wasting noted. Left left upper extremity brachiocephalic fistula. Somewhat firmer than expected, 2 aneurysmal areas noted about 2.5 cm across. Impression/Plan Plan: In this patient with malfunctioning AV fistula angiogram and possible intervention is indicated. The procedure, its risks, benefits, expected outcome and alternatives are familiar to the patient. He wishes to proceed.
--- NOTE | 2018-05-20 11:28 | Discharge Summary ---
Discharge Summary (SDC) - Discharge Final Diagnosis: #1 left AV fistula, brachiocephalic malfunction. 2. End-stage renal disease on hemodialysis. 3. Hypertension. Date of Surgery: 05/20/18 Discharge Date: 05/20/18 Condition: Good Forms: ASU Anesthesia D/C Instruction, Discharge POC-Surgical Service Treatment or Instructions: Discharge home [after recovery per ASU criteria]. Diet , [renal],as tolerated, when fully awake advance as tolerated. Activities within moderation encouraged. Follow up in my office by appointment on Sunday with our of this week for suture removal. Call for appointment. Leave wounds [covered], [keep clean and dry, until office visit i this week]. Meds per med rec. May shower [in 48 hrs], [try to keep operated area as dry as possible]. Referrals: JORGE DHILLON MD [ACTIVE STAFF] - 05/22/18 10:30 am Discharge Diet: Other (Comments) - Renal. Respiratory Treatments at Home: Deep Breathing/Coughing Discharge Activity: Activity As Tolerated Report the Following to Your Physician Immediately: Shortness of Breath
--- NOTE | 2018-05-20 11:33 | Operative Report ---
Operative Report DATE OF SURGERY: 05/20/18 PREOPERATIVE DIAGNOSIS: #1 left AV fistula, brachiocephalic malfunction. 2. E nd-stage renal disease on hemodialysis. 3. Hypertension. POSTOPERATIVE DIAGNOSIS: #1 left AV fistula, brachiocephalic malfunction. 2. End-stage renal disease on hemodialysis. 3. Hypertension. OPERATION: 1. Needle introduction in the fistula. 2. Balloon angioplasty centrally. 3. Peripheral angioplasty. 4. Central drug-eluting balloon with balloon deployment. 5. Angiogram and interpretation. SURGEON: JORGE RIOS MOTION GRAPHICS ARTIST: None. ANESTHESIA: Moderate Sedation TISSUE REMOVED OR ALTERED: None. COMPLICATIONS: None. ESTIMATED BLOOD LOSS: 2 mL. INTRAOPERATIVE FINDINGS: Of a well founded left arm brachiocephalic fistula. 2 areas of dilation with numerous needle entry along a long area of available fistula. An area of stenosis noted at about 20 cm estimated to be about 50% of the adjacent lumen. Critical stenosis noted at the subclavian cephalic junction estimated 70% of the adjacent lumen. Both corrected by angioplasty. Also noted are central collaterals which reduced dramatically after dilatation. All of which, along with a softer, more appropriate fistula at the end of the procedure, indicate a good outcome. PROCEDURE: PROCEDURE: After verifying the procedure and having obtained informed consent, the patient's left arm was prepared with Chlorhexidine and draped out with sterile linen. Local anesthesia infiltrated. Percutaneous access into the fistula ,[ antegrade], obtained about [6 cm] from the arteriovenous anastomosis using a micro puncture needle followed by micro puncture wire and then a micro puncture catheter. A 0.035 [place] wire was inserted, and over this, a 7 [place] short introducer was placed.Angiogram demonstrated the aforementioned findings. Angioplasty was elected., this was followed by a [9 -mm] angioplasty balloon . Angioplasty was Done in the subclavian and also the subclavian cephalic junction.. Inflating inflating using a 3 mils syringe for up to 4 minutes at the time]. Completion angiogram demonstrated [satisfactory result]. The same balloon was now used to inflate at the 20 cm area of stenosis. Using a 3 mils syringe for up to 2 minutes. It was decided to use a 10 mm drug-eluting balloon. This was noted required exchange for an 8 Tam[place] introducer. The drug-eluting balloon was inserted and positioned over the subclavian cephalic junction and inflated up to 6 avril for 4 minutes. Completion angiogram was satisfactory. The same balloon was now positioned over the 20 cm peripheral lesion and inflated gently up to 4 avril for 2 minutes. Again the outcome was satisfactory. The instrumentation was now withdrawn over a short piece of catheter and a For-0 Prolene suture. Dressings applied, procedure concluded. Exposure time: 0.8 minutes. Radiation: 17.81 mGy. Contrast: 25 mL of Isovue-300, low osmolality. DICTATING PHYSICIAN: JORGE DHILLON M.D. cc: JORGE DHILLON M.D. ([id number]) >>
[2018-05-20 13:38] VITALS: BP 115/55
--- NOTE | 2018-05-20 16:09 | RADIOLOGY REPORT (SQ) ---
EXAM DESCRIPTION: FISTULAGRAM W/PLASTY COMPLETED DATE/TIME: 05/20/2018 1:17 pm REASON FOR STUDY: T82.858A T82.858A STENOSIS OF OTHER VASCULAR PROSTH DEV/GRFT, INIT Z79.899 OTHER SKILLED NURSING (CURRENT) DRUG THERAPY COMPARISON: 03/18/2018 FLUOROSCOPY TIME: 0.8 minutes 98 digital fluoroscopic Images saved to PACS TECHNIQUE: Intra-operative images acquired during surgical procedure to evaluate progress. NUMBER OF IMAGES: 98 digital fluoro images LIMITATIONS: None. FINDINGS: Intra procedural imaging and fluoro during evaluation and plasty of left upper extremity d ialysis access IMPRESSION: IMAGE(S) OBTAINED DURING PROCEDURE. COMMENT: Quality ID 145: Final reports for procedures using fluoroscopy that document radiation exp osure indices, or exposure time and number of fluorographic images (if radiation exposure indices are not available) Please consult full operative report of the attending physician for description of the procedure. TECHNICAL DOCUMENTATION: JOB ID: [id number] [employer]- All Rights Reserved Reading location - IP/workstation name: [email or web address]
== END 2018-05-20 12:30 | disposition home or self-care (01) ==
LOC: CCL 07:08
PROVIDERS: ATTEND Surgery
DX: T82.858A Stenosis of other vascular prosthetic devices, implants and grafts, initial encounter (principal); Y83.2 Surgical operation with anastomosis, bypass or graft as the cause of abnormal reaction of the patient, or of later complication, without mention of misadventure at the time of the procedure; I12.0 Hypertensive chronic kidney disease with stage 5 chronic kidney disease or end stage renal disease; N18.6 End stage renal disease; Z99.2 Dependence on renal dialysis; Z79.899 Other long term (current) drug therapy
CPT/HCPCS: 36415; 85027; 80048; 36902; C2623; C1752; C1894; Q9967; C1769; J2250; J1644 ×2; A9270 ×2; J3010; J3490

== ENCOUNTER 2018-12-26 08:55 | Day surgery (SDC) | payer MEDICARE, OTHER ==
[2018-12-26] MEDS ORDERED: OXYCODONE-ACETAMINOPHEN 5-325 MG TABLET PO PRN (09:18)
[2018-12-26] MEDS ORDERED: DIAZEPAM 5 MG TABLET PO PRN (09:19)
[2018-12-26] MEDS ORDERED: DIAZEPAM 5 MG TABLET ONE (09:20)
[2018-12-26] MEDS ORDERED: OXYCODONE-ACETAMINOPHEN 5-325 MG TABLET ONE (09:20)
[2018-12-26 10:08] LABS: HEMATOCRIT 34.7 % (37.9-51.0); HEMOGLOBIN 11.5 g/dL (13.5-17.0); MEAN CORPUSCULAR HEMOGLOBIN 27.9 pg (27.0-33.4); MEAN CORPUSCULAR VOLUME 85 fl (80-97); PLATELET COUNT 233 10^3/uL (150-450); RED BLOOD COUNT 4.11 10^6/uL (4.35-5.55); RED CELL DISTRIBUTION WIDTH 18.5 % (11.5-14.0); WHITE BLOOD COUNT 6.7 10^3/uL (4.0-10.5)
[2018-12-26 10:31] LABS: ANION GAP 12 (5-19); BLOOD UREA NITROGEN 40 mg/dL (7-20); CALCIUM 9.3 mg/dL (8.4-10.2); CARBON DIOXIDE 28 mmol/L (22-30); CHLORIDE 95 mmol/L (98-107); POTASSIUM 5.1 mmol/L (3.6-5.0)
[2018-12-26 10:34] LABS: GLUCOSE 66 mg/dL (75-110)
[2018-12-26] MEDS ORDERED: LIDOCAINE 0.5% INJ-PF (5 MG/ML) 50 ML SDV ONE (10:38)
[2018-12-26] MEDS ORDERED: HEPARIN SOD (PORCINE) 5,000 UNIT/ML 1 ML VIAL ONE (10:45)
[2018-12-26] MEDS ORDERED: FENTANYL CITRATE INJ/PF 100 MCG/2 ML AMPUL ONE (10:45)
[2018-12-26] MEDS ORDERED: MIDAZOLAM 2 MG/2 ML INJ ONE (10:45)
[2018-12-26 12:12] VITALS: BP 135/73
--- NOTE | 2018-12-26 12:52 | RADIOLOGY REPORT (SQ) ---
EXAM DESCRIPTION: FISTULAGRAM W/PLASTY; ANGIOPLASTY BRACHIOCEPHALIC COMPLETED DATE/TIME: 12/26/2018 11:44 am REASON FOR STUDY: T82.858A T82.858A STENOSIS OF OTHER VASCULAR PROSTH DEV/GRFT, INIT COMPARISON: 05/20/2018. FLUOROSCOPY TIME: 0.8 minutes. 95 images saved to PACS. TECHNIQUE: Intra-operative images acquired during surgical procedure to evaluate progress. NUMBER OF IMAGES: 95 images. LIMITATIONS: None. FINDINGS: Imaging in fluoroscopy during left upper extremity dialysis access evaluation and plasty b y Dr. Hunter . Please refer to the operative report for further details. IMPRESSION: INTRA PROCEDURAL IMAGING ABOVE . COMMENT: Quality ID 145: Final reports for procedures using fluoroscopy that document radiation exp osure indices, or exposure time and number of fluorographic images (if radiation exposure indices are not available) Please consult full operative report of the attending physician for description of the procedure. TECHNICAL DOCUMENTATION: JOB ID: [id number] [employer]- All Rights Reserved Reading location - IP/workstation name: [email or web address]
--- NOTE | 2018-12-26 12:52 | RADIOLOGY REPORT (SQ) ---
EXAM DESCRIPTION: FISTULAGRAM W/PLASTY; ANGIOPLASTY BRACHIOCEPHALIC COMPLETED DATE/TIME: 12/26/2018 11:44 am REASON FOR STUDY: T82.858A T82.858A STENOSIS OF OTHER VASCULAR PROSTH DEV/GRFT, INIT COMPARISON: 05/20/2018. FLUOROSCOPY TIME: 0.8 minutes. 95 images saved to PACS. TECHNIQUE: Intra-operative images acquired during surgical procedure to evaluate progress. NUMBER OF IMAGES: 95 images. LIMITATIONS: None. FINDINGS: Imaging in fluoroscopy during left upper extremity dialysis access evaluation and plasty b y Dr. Hunter . Please refer to the operative report for further details. IMPRESSION: INTRA PROCEDURAL IMAGING ABOVE . COMMENT: Quality ID 145: Final reports for procedures using fluoroscopy that document radiation exp osure indices, or exposure time and number of fluorographic images (if radiation exposure indices are not available) Please consult full operative report of the attending physician for description of the procedure. TECHNICAL DOCUMENTATION: JOB ID: [id number] [employer] All Rights Reserved Reading location - IP/workstation name: [email or web address]
--- NOTE | 2018-12-27 08:33 | PDOC H&P ---
General Chief Complaint: The patient presents with malfunctioning AV fistula noted on hemodialysis. - Diagnosis (1) Dialysis AV fistula malfunction Is this a Current Diagnosis?: Yes (2) ESRD on hemodialysis Is this a Current Diagnosis?: Yes (3) HTN (hypertension) Is this a Current Diagnosis?: Yes - Current Medications/Allergies Home Medications: Cholecalciferol (Vitamin D3) [Vitamin D3] 50,000 unit PO ASDIR 06/16/14 Sevelamer Carbonate [Renvela] 1 tab PO ASDIR PRN 06/16/14 Epoetin Gerber [Procrit Inj 40,000 Unit/1 ml Vial (Oncology)] 40,000 unit SUBCUT .2WEEKS 05/17/16 Acetaminophen [Tylenol Extra Strength] 2 tab PO DAILY PRN 10/20/16 Amlodipine Besylate 10 mg PO DAILY 05/14/17 Leuprolide Acetate [Lupron] 1 mg INJ ASDIR PRN 05/14/17 Oxycodone HCl/Acetaminophen [Percocet 5-325 mg Tablet] 1 tab PO PRN PRN 09/21/17 Allergies/Adverse Reactions: No Known Allergies Allergy (Verified 12/26/18 09:41) Past Medical History Cardiac Medical History: Reports: Hypertension Denies: Congestive Heart Failure, Coronary Artery Disease, Myocardial Infarction Pulmonary Medical History: Denies: Asthma, Bronchitis, Chronic Obstructive Pulmonary Disease (COPD), Pneumonia, Tuberculosis Neurological Medical History: Denies: Seizures Renal/ Medical History: Reports: End Stage Renal Disease GI Medical History: Reports: Gastroesophageal Reflux Disease Denies: Cirrhosis, Hepatitis, Hiatal Hernia Musculoskeltal Medical History: Denies: Arthritis Psychiatric Medical History: Denies: Bipolar Disorder, Depression Hematology: Reports: Anemia, Bleeding Tendencies Denies: Sickle Cell Disease Past Surgical History Past Surgical History: Denies: Pacemaker Family History Family History: Reviewed & Not Pertinent Parental Family History Reviewed: No Children Family History Reviewed: No Sibling(s) Family History Reviewed.: No Social History Smoking Status: Never Smoker Frequency of Alcohol Use: None Hx Recreational Drug Use: No Drugs: None Hx Prescription Drug Abuse: No Physical Exam Vital Signs: Temp Pulse Resp BP Pulse Ox 97.9 F 72 18 135/73 H 100 12/26/18 12:00 12/26/18 12:00 12/26/18 12:00 12/26/18 12:00 12/26/18 12:00 Intake & Output 12/26/18 12/27/18 12/28/18 06:59 06:59 06:59 Intake Total 0 Balance 0 Additional comments: Constitutional: Well-developed well-nourished gentleman. No apparent acute distress. Eyes: Mucous membranes pink and moist, pupils equal and reactive to light. Conjunctiva normal. Cornea normal. ENT: Hearing grossly normal. External pinna normal to inspection. Teeth intact. Tongue normal to inspection. Cardiac: Heart sounds 1 and 2 normal, no murmurs. Respiratory: breath sounds are present bilaterally, normal. Normal respiratory effort. Psychiatric: Judgment, memory, insight seem normal. Mood is pleasant and appropriate. Extremities: Upper extremities show normal range of movement. Pulses present noted to the radial arteries. Capillary refill normal. No cyanosis noted. No muscle wasting noted. Left brachiocephalic fistula with considerable ectasia noted. Quite firm in the first 12 cm, suggesting cephalad stenosis. Neurovascular: No apparent tremors, gait normal. Sensation grossly intact. Hearing grossly normal. Vison grossly intact. Impression/Plan Plan: In this patient with a malfunctioning functioning fistula, angioplasty may be needed. Procedure, its risks, benefits, expected outcomes alternatives are familiar to the patient. He wishes to proceed.
--- NOTE | 2018-12-27 08:34 | Discharge Summary ---
Discharge Summary (SDC) - Discharge Final Diagnosis: #1 malfunctioning AV fistula, left brachiocephalic. 2. End-stage renal disease on hemodialysis. 3. Hypertension. Date of Surgery: 12/27/18 Discharge Date: 12/27/18 Condition: Fair Forms: Discharge POC-Surgical Service Referrals: JORGE DHILLON MD [ACTIVE STAFF] - (Follow up as scheduled) Discharge Diet: Other (Comments) - Renal. Respiratory Treatments at Home: Deep Breathing/Coughing Discharge Activity: Activity As Tolerated Report the Following to Your Physician Immediately: Shortness of Breath, Nausea, Vomiting, Fever over 101 Degrees, Unusual Bleeding
--- NOTE | 2018-12-27 08:37 | Operative Report ---
Operative Report DATE OF SURGERY: 12/26/18 PREOPERATIVE DIAGNOSIS: #1 malfunctioning AV fistula, left brachiocephalic. 2. End-stage renal disease on hemodialysis. 3. Hypertension. POSTOPERATIVE DIAGNOSIS: #1 malfunctioning AV fistula, left brachiocephalic. 2. End-stage renal disease on hemodialysis. 3. Hypertension. OPERATION: 1. Needle access into the arteriovenous fistula. 2. Angioplasty central. 3. Angioplasty peripheral in AV fistula. 4. Angiogram and interpretation. SURGEON: JORGE RIOS RENT CONTROL OFFICE MANAGER: None. ANESTHESIA: Moderate Sedation TISSUE REMOVED OR ALTERED: Not applicable. COMPLICATIONS: None. ESTIMATED BLOOD LOSS: 5 mL. INTRAOPERATIVE FINDINGS: Of a well founded left brachiocephalic fistula. Firm in the first 12 cm. Ectasia noted in the areas of frequent needle access needle arm. Just cephalad to that at about 15 cm an area of stenosis in the fistula about 70 to 80% of the adjacent lumen noted. Completely eradicated by angioplasty with an 8 mm balloon. Also note this is an area of stenosis about a centimeter long at the subclavian to cephalic junction representing about 80% of the adjacent lumen. Eliminated with angioplasty using an 8 mm balloon. PROCEDURE: PROCEDURE: After verifying the procedure and having obtained informed consent, the patient's left arm was prepared with Chlorhexidine and draped out with sterile linen. Local anesthesia infiltrated. Percutaneous access into the fistula ,[ antegrade], obtained about [4 cm] from the arteriovenous anastomosis using a micro puncture needle followed by micro puncture wire and then a micro puncture catheter. A 0.035 [place] wire was inserted, and over this, a 7 [place] short introducer was placed.Angiogram demonstrated the aforementioned findings. Angioplasty was elected. , this was followed by a [8 -mm] angioplasty balloon . Angioplasty was Done first of the central segment dilating using a 3 mils syringe for 2 minutes at a time]. Completion angiogram demonstrated [satisfactory result]. The balloon was withdrawn and positioned over the AV fistula stenosis. Inflated using a 3 mils syringe for 2 minutes. Completion angiograms were satisfactory as noted. The instrumentation was now withdrawn over hand held pressure for 10 minutes . Dressings applied, procedure concluded. DICTATING PHYSICIAN: JORGE DHILLON M.D. cc: JORGE DHILLON M.D. ([id number]) >>
--- NOTE | 2018-12-29 18:20 | Operative Report ---
Operative Report DATE OF SURGERY: 12/26/18 OPERATION: see previous PROCEDURE: See note dated 12/27/18, for 12/26/18
== END 2018-12-26 12:00 | disposition home or self-care (01) ==
LOC: CCL 08:55
PROVIDERS: ATTEND Surgery
DX: T82.858A Stenosis of other vascular prosthetic devices, implants and grafts, initial encounter (principal); Y83.2 Surgical operation with anastomosis, bypass or graft as the cause of abnormal reaction of the patient, or of later complication, without mention of misadventure at the time of the procedure; I12.0 Hypertensive chronic kidney disease with stage 5 chronic kidney disease or end stage renal disease; N18.6 End stage renal disease; Z99.2 Dependence on renal dialysis; D64.9 Anemia, unspecified; C61 Malignant neoplasm of prostate; C85.90 Non-Hodgkin lymphoma, unspecified, unspecified site; Z01.818 Encounter for other preprocedural examination; Z79.899 Other long term (current) drug therapy
CPT/HCPCS: 36415; 85027; 80048; 36907; 36902; C1725; C1752; C1894; Q9967; C1769; J2250; J1644 ×2; A9270 ×2; J3010; J3490

== ENCOUNTER 2019-02-24 06:49 | Emergency (ER) | payer MEDICARE, OTHER ==
--- NOTE | 2019-02-24 08:09 | ER Document Report ---
ED Extremity Problem, Upper - General Chief Complaint: Arm Problem Stated Complaint: LEFT ARM SWELLING Time Seen by Provider: 02/24/19 08:07 Primary Care Provider: LUIS CHAUDHARY MD [Primary Care Provider] - Follow up as needed Information source: Patient, [facility] Records TRAVEL OUTSIDE OF THE [place] IN LAST 30 DAYS: No - Related Data Allergies/Adverse Reactions: No Known Allergies Allergy (Verified 12/26/18 09:41) Past Medical History - Social History Smoking Status: Unknown if Ever Smoked Family History: Reviewed & Not Pertinent Patient has suicidal ideation: No Patient has homicidal ideation: No - Past Medical History Cardiac Medical History: Reports: Hx Hypertension Denies: Hx Congestive Heart Failure, Hx Coronary Artery Disease, Hx Heart Attack Pulmonary Medical History: Denies: Hx Asthma, Hx Bronchitis, Hx COPD, Hx Pneumonia, Hx Tuberculosis Neurological Medical History: Denies: Hx Cerebrovascular Accident, Hx Seizures, Hx Parkinson's Disease Renal/ Medical History: Reports: Hx Benign Prostatic Hyperplasia - enlarged but surgery and ok now, Hx End Stage Renal Disease. Denies: Hx Kidney Stones, Hx Peritoneal Dialysis GI Medical History: Reports: Hx Gastroesophageal Reflux Disease, Hx Ulcer - 1990 surgery for ulcers. Denies: Hx Cirrhosis, Hx Hepatitis, Hx Hiatal Hernia Musculoskeletal Medical History: Denies Hx Arthritis, Denies Hx Multiple Sclerosis Psychiatric Medical History: Denies: Hx Bipolar Disorder, Hx Depression, Hx Schizophrenia Infectious Medical History: Denies: Hx Hepatitis Past Surgical History: Denies: Hx Open Heart Surgery, Hx Pacemaker - Immunizations Hx Diphtheria, Pertussis, Tetanus Vaccination: Yes Hx Pneumococcal Vaccination: 04/02/13 Physical Exam - Vital signs Vitals: Temp Pulse Resp BP Pulse Ox 97.6 F 87 18 121/62 99 02/24/19 07:00 02/24/19 07:00 02/24/19 07:00 02/24/19 07:00 02/24/19 07:00 Course - Vital Signs Vital signs: Temp Pulse Resp BP Pulse Ox 97.6 F 87 18 121/62 99 02/24/19 07:00 02/24/19 07:00 02/24/19 07:00 02/24/19 07:00 02/24/19 07:00 Discharge - Discharge Referrals: LUIS CHAUDHARY MD [Primary Care Provider] - Follow up as needed
[2019-02-24 08:24] VITALS: BP 122/61
--- NOTE | 2019-02-24 15:09 | ER Document Report ---
Entered by LUCIUS MATUTE SCRIBE 02/24/19 0815 Acting as scribe for:JAYANT ALEMAN MD ED Extremity Problem, Upper - General Chief Complaint: Arm Problem Stated Complaint: LEFT ARM SWELLING Time Seen by Provider: 02/24/19 08:07 Primary Care Provider: ABHIJEET CHAUDHARY MD [Primary Care Provider] - Follow up as needed Mode of Arrival: Ambulatory Information source: Patient Notes: This 69 year old male patient presents to the emergency department today with complaints of left upper extremity swelling. Patient states this happened during dialysis on 02/20, stating that it was when he was getting blood products returned when the swelling began. Patient had a normal dialysis treatment x2 days later on 02/22 using the same fistula without a problem. Patient states he went to dialysis today and was sent here by the dialysis nurse to "just make sure he can still have dialysis". Pertinent PMHx/PSHx: ESRD, on hemodialysis - additional PMHx/PSHx not pertinent to this visit as recorded. PCP: Doctor Abhijeet Chaudhary TRAVEL OUTSIDE OF THE [place] IN LAST 30 DAYS: No - Related Data Allergies/Adverse Reactions: No Known Allergies Allergy (Verified 12/26/18 09:41) Past Medical History - General Information source: Patient - Social History Smoking Status: Unknown if Ever Smoked Cigarette use (# per day): No Frequency of alcohol use: None Drug Abuse: None Lives with: Family Family History: Reviewed & Not Pertinent Patient has suicidal ideation: No Patient has homicidal ideation: No - Past Medical History Cardiac Medical History: Reports: Hx Hypertension Renal/ Medical History: Reports: Hx Benign Prostatic Hyperplasia - enlarged but surgery and ok now, Hx End Stage Renal Disease GI Medical History: Reports: Hx Gastroesophageal Reflux Disease, Hx Ulcer - 1989 surgery for ulcers - Immunizations Hx Diphtheria, Pertussis, Tetanus Vaccination: Yes Hx Pneumococcal Vaccination: 04/02/13 Review of Systems - Review of Systems Constitutional: No symptoms reported EENT: No symptoms reported Cardiovascular: No symptoms reported Respiratory: No symptoms reported Gastrointestinal: No symptoms reported Genitourinary: No symptoms reported Male Genitourinary: No symptoms reported Musculoskeletal: See HPI, Other - LUE swelling Skin: No symptoms reported Hematologic/Lymphatic: No symptoms reported Neurological/Psychological: No symptoms reported -: Yes All other systems reviewed and negative Physical Exam - Vital signs Vitals: Temp Pulse Resp BP Pulse Ox 97.6 F 87 18 121/62 99 02/24/19 07:00 02/24/19 07:00 02/24/19 07:00 02/24/19 07:00 02/24/19 07:00 - Notes Notes: Physical Exam: General: Alert, appears well. HEENT: Normocephalic. Atraumatic. PERRLA. Extraocular movements intact. Oropharynx clear. Neck: Supple. Respiratory: No respiratory distress. Abdominal: Normal Inspection. No distension. Extremities: Left upper extremity is grossly Neurological: Normal cognition. AAOx4. Normal speech. Psychological: Normal affect. Normal Mood. Skin: Warm. Dry. Normal color. Course - Re-evaluation Re-evalutation: 02/24/19 08:[address] Everett Hunter to discuss the case with him. He said it would be fine to continue with his scheduled dialysis, he would like to see him in the office on Sunday either before or after his dialysis to look at the arm. - Vital Signs Vital signs: Temp Pulse Resp BP Pulse Ox 97.6 F 80 17 122/61 99 02/24/19 08:21 02/24/19 08:21 02/24/19 08:21 02/24/19 08:21 02/24/19 07:00 Discharge - Discharge Clinical Impression: Swelling of left upper extremity Condition: Stable Disposition: HOME, SELF-CARE Additional Instructions: Continue your regularly scheduled dialysis. Follow-up with Dr. Everett Hunter in the office on Sunday either before or after your dialysis on Sunday. RETURN TO THE EMERGENCY ROOM IF ANY NEW OR WORSENING SYMPTOMS. Referrals: ABHIJEET CHAUDHARY MD [Primary Care Provider] - Follow up as needed Scribe Attestation: 02/24/19 08:17 I personally performed the services described in the documentation, reviewed and edited the documentation which was dictated to the scribe in my presence, and it accurately records my words and actions. I personally performed the services described in the documentation, reviewed and edited the documentation which was dictated to the scribe in my presence, and it accurately records my words and actions.
== END 2019-02-24 08:21 | disposition home or self-care (01) ==
LOC: ER 06:49
DX: M79.89 Other specified soft tissue disorders (principal); I12.0 Hypertensive chronic kidney disease with stage 5 chronic kidney disease or end stage renal disease; N18.6 End stage renal disease; Z99.2 Dependence on renal dialysis
CPT/HCPCS: 99283

== ENCOUNTER 2019-02-25 08:36 | Day surgery (SDC) | payer MEDICARE, OTHER ==
[2019-02-25] MEDS ORDERED: DIAZEPAM 5 MG TABLET ONE (09:22)
[2019-02-25] MEDS ORDERED: OXYCODONE-ACETAMINOPHEN 5-325 MG TABLET ONE (09:22)
[2019-02-25] MEDS ORDERED: DIAZEPAM 5 MG TABLET PO PRN (09:25)
[2019-02-25] MEDS ORDERED: OXYCODONE-ACETAMINOPHEN 5-325 MG TABLET PO PRN (09:26)
[2019-02-25] MEDS ORDERED: LIDOCAINE 0.5% INJ-PF (5 MG/ML) 50 ML SDV ONE ×2 (09:46→09:48)
[2019-02-25] MEDS ORDERED: MIDAZOLAM 2 MG/2 ML INJ ONE (10:17)
[2019-02-25] MEDS ORDERED: HEPARIN SOD (PORCINE) 5,000 UNIT/ML 1 ML VIAL ONE (10:18)
[2019-02-25] MEDS ORDERED: FENTANYL CITRATE INJ/PF 100 MCG/2 ML AMPUL ONE (10:18)
[2019-02-25 10:19] LABS: ANION GAP 14 (5-19); BLOOD UREA NITROGEN 26 mg/dL (7-20); CALCIUM 8.6 mg/dL (8.4-10.2); CARBON DIOXIDE 27 mmol/L (22-30); CHLORIDE 94 mmol/L (98-107); GLUCOSE 84 mg/dL (75-110); POTASSIUM 3.8 mmol/L (3.6-5.0)
[2019-02-25 10:23] LABS: HEMATOCRIT 31.4 % (37.9-51.0); HEMOGLOBIN 10.7 g/dL (13.5-17.0); MEAN CORPUSCULAR HEMOGLOBIN 30.1 pg (27.0-33.4); MEAN CORPUSCULAR VOLUME 88 fl (80-97); PLATELET COUNT 160 10^3/uL (150-450); RED BLOOD COUNT 3.56 10^6/uL (4.35-5.55); RED CELL DISTRIBUTION WIDTH 19.3 % (11.5-14.0); WHITE BLOOD COUNT 6.3 10^3/uL (4.0-10.5)
--- NOTE | 2019-02-25 12:37 | Discharge Summary ---
Discharge Summary (SDC) - Discharge Final Diagnosis: #1 malfunctioning AV fistula left arm. 2. End-stage renal disease on hemodialysis. 3. Hypertension. Date of Surgery: 02/25/19 Discharge Date: 02/25/19 Condition: Fair Treatment or Instructions: Discharge home [after recovery per ASU criteria]. Diet , [renal],as tolerated, when fully awake advance as tolerated. Activities within moderation encouraged. Follow up in my office by appointment tomorrow,, Sunday for removal of suture. Call for appointment. Leave wounds [covered], [keep clean and dry, until office visit in 1 week]. Hold of on school/work [until evaluation in office]. Meds per med rec. May shower [in 48 hrs], [try to keep operated area as dry as possible]. Referrals: LUIS CHAUDHARY MD [Primary Care Provider] - Discharge Diet: Other (Comments) - Renal. Respiratory Treatments at Home: Deep Breathing/Coughing Discharge Activity: Activity As Tolerated Report the Following to Your Physician Immediately: Shortness of Breath, Unusual Bleeding
--- NOTE | 2019-02-25 13:01 | RADIOLOGY REPORT (SQ) ---
EXAM DESCRIPTION: FISTULAGRAM W/PLASTY; FISTULAPLASTY CENTRAL COMPLETED DATE/TIME: 02/25/2019 11:57 am; 02/25/2019 11:28 am REASON FOR STUDY: T82.858A T82.858A STENOSIS OF OTHER VASCULAR PROSTH DEV/GRFT, INIT COMPARISON: 12/26/2018 FLUOROSCOPY TIME: 2 MINUTES Multiple images saved to PACS. TECHNIQUE: Intra-operative images acquired during surgical procedure to evaluate progress. NUMBER OF IMAGES: Cine fluoroscopic images. LIMITATIONS: None. FINDINGS: Intraoperative fluoroscopic images demonstrate evidence of venoplasty. Please see operati ve report for detailed description. IMPRESSION: IMAGE(S) OBTAINED DURING PROCEDURE. COMMENT: Quality ID 145: Final reports for procedures using fluoroscopy that document radiation exp osure indices, or exposure time and number of fluorographic images (if radiation exposure indices are not available) Please consult full operative report of the attending physician for description of the procedure. TECHNICAL DOCUMENTATION: JOB ID: [id number] [employer]- All Rights Reserved Reading location - IP/workstation name: [email or web address]
--- NOTE | 2019-02-25 13:01 | RADIOLOGY REPORT (SQ) ---
EXAM DESCRIPTION: FISTULAGRAM W/PLASTY; FISTULAPLASTY CENTRAL COMPLETED DATE/TIME: 02/25/2019 11:57 am; 02/25/2019 11:28 am REASON FOR STUDY: T82.858A T82.858A STENOSIS OF OTHER VASCULAR PROSTH DEV/GRFT, INIT COMPARISON: 12/26/2018 FLUOROSCOPY TIME: 2 MINUTES Multiple images saved to PACS. TECHNIQUE: Intra-operative images acquired during surgical procedure to evaluate progress. NUMBER OF IMAGES: Cine fluoroscopic images. LIMITATIONS: None. FINDINGS: Intraoperative fluoroscopic images demonstrate evidence of venoplasty. Please see operati ve report for detailed description. IMPRESSION: IMAGE(S) OBTAINED DURING PROCEDURE. COMMENT: Quality ID 145: Final reports for procedures using fluoroscopy that document radiation exp osure indices, or exposure time and number of fluorographic images (if radiation exposure indices are not available) Please consult full operative report of the attending physician for description of the procedure. TECHNICAL DOCUMENTATION: JOB ID: [id number] [employer]- All Rights Reserved Reading location - IP/workstation name: [email or web address]
[2019-02-25 13:27] VITALS: BP 121/56
--- NOTE | 2019-02-25 16:32 | Operative Report ---
Operative Report DATE OF SURGERY: 02/25/19 PREOPERATIVE DIAGNOSIS: #1 malfunctioning AV fistula left arm. 2. End-stage r enal disease on hemodialysis. 3. Hypertension. POSTOPERATIVE DIAGNOSIS: #1 malfunctioning AV fistula left arm. 2. End-stage renal disease on hemodialysis. 3. Hypertension. OPERATION: 1. Needle access into the fistula. 2. Angioplasty in cephalad cephalic vein and subclavian vein. 3. Angiogram and interpretation. 4. Angioplasty in the cephalad cephalic's vein and subclavian vein with a drug- eluting balloon. 5. Ultrasound evaluation of fistula and guidance of needle into fistula. SURGEON: JORGE RIOS SWIMMING POOL CLEANER: None. ANESTHESIA: Moderate Sedation TISSUE REMOVED OR ALTERED: Not applicable. COMPLICATIONS: None. ESTIMATED BLOOD LOSS: 5 mL. INTRAOPERATIVE FINDINGS: Of a well-established left arm brachiobasilic fistula. Ectasia and aneurysm noted. The fistula was hyper pulsatile initially. Much more appropriate to palpation after procedure. The patient had massive edema in the extremity reasons for which are not entirely clear. Contributed to by cephalad stenosis and also by subcutaneous blood. A very large hematoma was noted medial to the fistula and recorded on ultrasound. The fistula itself was fairly substantial narrowing down to 5.6 mm in the mid arm. An area of stenosis is noted in the cephalad cephalic vein approximately 4 cm long and extending to the junction with the subclavian. This was an 80 or more percent stenosis. This responded to angioplasty first with a 8 mm and a 9 mm angioplasty balloon. Acceptable results were obtained with Perhaps 5% residual stenosis. The stenosis was relatively elastic and a stent may eventually be required. A drug- eluting balloon was used in the hopes of reducing the need for intervention. An area of stenosis was noted in the fistula about 8 cm from the elbow this responded to an 8 mm angioplasty. This area of stenosis is about 40% of the adjacent lumen. PROCEDURE: PROCEDURE: After verifying the procedure and having obtained informed consent, the patient's left arm was prepared with Chlorhexidine and draped out with sterile linen. Local anesthesia infiltrated. Percutaneous access into the fistula ,[ antegrade], obtained about [4 cm] from the arteriovenous anastomosis using a micro puncture needle followed by micro puncture wire and then a micro puncture catheter. Angiogram demonstrated the aforementioned findings. Angioplasty was elected. A 0.035 [place] wire was inserted, and over this, a 7 [place] short introducer was placed, this was followed by a [8 - mm] angioplasty balloon . Angioplasty was done at the cephalad cephalic. Inflating using a 3 mils syringe for 3 minutes at a time.]. This was repeated and an angiogram gram done which showed improvement but suboptimal. The balloon was now withdrawn and used to inflate o f the mid arm area of stenosis. A 9 mm angioplasty balloon was now inserted and inflated 3 mils syringe. The completion angiogram was acceptable. A drug- eluting balloon was now inserted across this area and inflated using an insufflator for 4 minutes. It was not deflated. Completion angiogram demonstrated [satisfactory result]. The instrumentation was now withdrawn over a short piece of catheter and a 5-0 Prolene suture. Dressings applied, procedure concluded. Exposure time: 2 minutes Radiation: 33.37 Viktoria abel. Contrast: 40 mils of Omnipaque 300. DICTATING PHYSICIAN: JORGE DHILLON M.D. cc: JORGE DHILLON M.D. ([id number]) >>
--- NOTE | 2019-04-06 12:25 | PDOC H&P ---
History of Present Illness Admission Date/PCP: LUIS CHAUDHARY The patient admitted on 20 February 2019 for angioplasty. Patient complains of: Malfunctioning AV fistula left upper extremity. History of Present Illness: FRIEDA NJ is a 69 year old male Malfunction at dialysis is been appreciated by the hemodialysis team. Past Medical History Cardiac Medical History: Reports: Hypertension Denies: Congestive Heart Failure, Coronary Artery Disease, Myocardial Infarction Pulmonary Medical History: Denies: Asthma, Bronchitis, Chronic Obstructive Pulmonary Disease (COPD), Pneumonia, Tuberculosis Neurological Medical History: Denies: Seizures Renal/ Medical History: Reports: End Stage Renal Disease GI Medical History: Reports: Gastroesophageal Reflux Disease Denies: Cirrhosis, Hepatitis, Hiatal Hernia Musculoskeltal Medical History: Denies: Arthritis Psychiatric Medical History: Denies: Bipolar Disorder, Depression Hematology: Reports: Anemia, Bleeding Tendencies Denies: Sickle Cell Disease Past Surgical History Past Surgical History: Denies: Pacemaker Social History Smoking Status: Unknown if Ever Smoked Frequency of Alcohol Use: None Hx Recreational Drug Use: No Drugs: None Hx Prescription Drug Abuse: No Family History Family History: Reviewed & Not Pertinent Parental Family History Reviewed: No Children Family History Reviewed: No Sibling(s) Family History Reviewed.: No Medication/Allergy Home Medications: Epoetin Gerber [Procrit Inj 40,000 Unit/1 ml Vial (Oncology)] 40,000 unit SUBCUT .QWEEKLY 05/17/16 Amlodipine Besylate [Norvasc 10 mg Tablet] 10 mg PO DAILY 02/25/19 Enzalutamide [Xtandi] 160 mg PO Q12 MDD 8 tabs 02/25/19 Fenofibrate 145 mg PO DAILY 02/25/19 Oxycodone HCl/Acetaminophen [Oxycodon-Acetaminophen 7.5-325] 1 tab PO Q8HP PRN 02/25/19 Pantoprazole Sodium [Protonix [address] Tablet] 40 mg PO DAILY 02/25/19 Prochlorperazine Maleate [Compazine 10 mg Tablet] 10 mg PO Q8HP PRN 02/25/19 Ergocalciferol (Vitamin D2) [Vitamin D2] 50,000 unit PO .[id number] 03/21/19 Megestrol Acetate 10 ml PO DAILY 03/21/19 Ondansetron HCl 4 mg PO BIDP PRN 03/21/19 Promethazine HCl [Phenergan 25 mg Tablet] 25 mg PO Q8HP PRN 03/21/19 Sevelamer HCl [Renagel 800 mg Tablet] 2,400 mg PO MEALS 10 Days #90 tablet 03/28/19 Vancomycin HCl [Vancocin Inj 1000 mg Vial] 750 mg IV PDIA vial 03/28/19 Allergies/Adverse Reactions: No Known Allergies Allergy (Verified 12/26/18 09:41) Physical Exam Vital Signs: Temp Pulse Resp BP Pulse Ox 97.6 F 83 16 121/56 L 97 02/25/19 13:15 02/25/19 13:15 02/25/19 13:15 02/25/19 13:15 02/25/19 13:15 Additional comments: Constitutional: Well-developed well-nourished gentleman. No apparent acute distress. Eyes: Mucous membranes pink and moist, pupils equal and reactive to light. Conjunctiva normal. Cornea normal. ENT: Hearing grossly normal. External pinna normal to inspection. Teeth Missin g. Tongue normal to inspection. Cardiac: Heart sounds 1 and 2 normal, no murmurs. Respiratory: breath sounds are present bilaterally, normal. Normal respiratory effort. Skin: Significant for increased turgor in the left upper extremity, considerable bruising and subcutaneous hematoma. Psychiatric: Judgment, memory, insight seem normal. Mood is pleasant and appropriate. Extremities: Upper extremities show reduced range of movement. Pulses present noted to the radial arteries. Capillary refill normal. No cyanosis noted. No muscle wasting noted.Significant for increased turgor in the left upper extremity, considerable bruising and subcutaneous hematoma. Neurovascular: No apparent tremors, gait normal. Sensation grossly intact. Hearing grossly normal. Vison grossly intact. Results Laboratory Results: 02/25/19 09:20 02/25/19 09:20 Impressions: Fistulogram 02/25/19 00:00 IMPRESSION: IMAGE(S) OBTAINED DURING PROCEDURE. Vascular Stent Procedure 02/25/19 00:00 IMPRESSION: IMAGE(S) OBTAINED DURING PROCEDURE. Assessment & Plan - Plan Summary Plan Summary: Admission for angiogram in the left upper extremity fistula, possible angioplasty recommended. The procedure, its risks, benefits, expected outcomes alternatives are familiar to the patient. He wishes to proceed.
== END 2019-02-25 13:30 | disposition home or self-care (01) ==
LOC: CCL 08:36
PROVIDERS: ATTEND Surgery
DX: T82.858A Stenosis of other vascular prosthetic devices, implants and grafts, initial encounter (principal); Y83.2 Surgical operation with anastomosis, bypass or graft as the cause of abnormal reaction of the patient, or of later complication, without mention of misadventure at the time of the procedure; I12.0 Hypertensive chronic kidney disease with stage 5 chronic kidney disease or end stage renal disease; N18.6 End stage renal disease; Z99.2 Dependence on renal dialysis; Z79.899 Other long term (current) drug therapy
CPT/HCPCS: 36415; 85027; 80048; 36907; 36902; 76937; C1725; C2623; C1752; C1894; Q9967; C1769; J2250; J1644 ×2; A9270 ×2; J3010; J3490

== ENCOUNTER 2019-03-20 11:03 | Emergency (ER) | payer MEDICARE, OTHER ==
--- NOTE | 2019-03-20 11:52 | ER Document Report ---
HPI - HPI Time Seen by Provider: 03/20/19 11:37 Pain Level: Denies Notes: 69 yr old male with prostate CA, CKD on dialysis presents for leaking fistula/skin tears around dialysis shunt for the last two weeks. Patient is also complaining of weakness and dizziness as well for last two weeks. patient did go to dialysis today, did access fistula without issues. Patient states he is not on anticoagulant therapy. There is a bit of a language barrier, helping with chief complaint/medical history. Denies any fevers or chills, denies any trauma. Patient also has a right forearm skin tear that has been bleeding as well for the last 2 weeks. Patient is not been evaluated by medical provider for this issue. Denies any fevers chills, chest pain shortness of breath I have greeted and performed a rapid initial assessment of this patient. A comprehensive ED assessment and evaluation of the patient, analysis of test results and completion of the medical decision making process will be conducted by additional ED providers. PHYSICAL EXAMINATION: GENERAL: Well-appearing, well-nourished and in no acute distress. CV: s1, s2 regular LUNGS: No respiratory distress Musculoskeletal: Normal range of motion. Palpate thrill left upper upper extremity fistula NEUROLOGICAL: Normal speech, normal gait. SKIN: Warm, Dry, normal turgor, no rashes or lesions noted. - REPRODUCTIVE Reproductive: DENIES: : Past Medical History - Social History Smoking Status: Former Smoker Chew tobacco use (# tins/day): No Frequency of alcohol use: None Drug Abuse: None Family History: Reviewed & Not Pertinent Patient has suicidal ideation: No Patient has homicidal ideation: No - Past Medical History Cardiac Medical History: Reports: Hx Hypertension Denies: Hx Congestive Heart Failure, Hx Coronary Artery Disease, Hx Heart Attack Pulmonary Medical History: Denies: Hx Asthma, Hx Bronchitis, Hx COPD, Hx Pneumonia, Hx Tuberculosis Neurological Medical History: Denies: Hx Cerebrovascular Accident, Hx Seizures, Hx Parkinson's Disease Renal/ Medical History: Reports: Hx Benign Prostatic Hyperplasia - enlarged but surgery and ok now, Hx End Stage Renal Disease. Denies: Hx Kidney Stones, Hx Peritoneal Dialysis GI Medical History: Reports: Hx Gastroesophageal Reflux Disease, Hx Ulcer - 1990 surgery for ulcers. Denies: Hx Cirrhosis, Hx Hepatitis, Hx Hiatal Hernia Musculoskeletal Medical History: Denies Hx Arthritis, Denies Hx Multiple Sclerosis Psychiatric Medical History: Denies: Hx Bipolar Disorder, Hx Depression, Hx Schizophrenia Infectious Medical History: Denies: Hx Hepatitis Past Surgical History: Denies: Hx Open Heart Surgery, Hx Pacemaker - Immunizations Hx Diphtheria, Pertussis, Tetanus Vaccination: Yes Hx Pneumococcal Vaccination: 04/02/13 Vertical Provider Document - INFECTION CONTROL TRAVEL OUTSIDE OF THE [place] IN LAST 30 DAYS: No Course - Vital Signs Vital signs: Temp Pulse Resp BP Pulse Ox 98.6 F 82 18 107/54 L 97 03/20/19 11:38 03/20/19 11:38 03/20/19 11:38 03/20/19 11:38 03/20/19 11:38 Discharge - Discharge Referrals: LUIS CHAUDHARY MD [Primary Care Provider] - Follow up as needed
--- NOTE | 2019-03-20 11:53 | ER Document Report ---
ED Medical Screen (RME) - General Chief Complaint: Skin Tear(s) Stated Complaint: ARM PAIN/BLEEDING Time Seen by Provider: 03/20/19 11:37 Primary Care Provider: LUIS CHAUDHARY MD [Primary Care Provider] - Follow up as needed TRAVEL OUTSIDE OF THE [place] IN LAST 30 DAYS: No - HPI Notes: 03/20/19 11:52 69 yr old male with prostate CA, CKD on dialysis presents for leaking fistula/ skin tears around dialysis shunt for the last two weeks. Patient is also complaining of weakness and dizziness as well for last two weeks. patient did go to dialysis today, did access fistula without issues. Patient states he is not on anticoagulant therapy. There is a bit of a language barrier, helping with chief complaint/medical history. Denies any fevers or chills, denies any trauma. Patient also has a right forearm skin tear that has been bleeding as well for the last 2 weeks. Patient is not been evaluated by medical provider for this issue. Denies any fevers chills, chest pain shortness of breath I have greeted and performed a rapid initial assessment of this patient. A comprehensive ED assessment and evaluation of the patient, analysis of test results and completion of the medical decision making process will be conducted by additional ED providers. PHYSICAL EXAMINATION: GENERAL: Well-appearing, well-nourished and in no acute distress. CV: s1, s2 regular LUNGS: No respiratory distress Musculoskeletal: Normal range of motion. Palpate thrill left upper upper extremity fistula NEUROLOGICAL: Normal speech, normal gait. SKIN: Warm, Dry, normal turgor, no rashes or lesions noted. - Related Data Allergies/Adverse Reactions: No Known Allergies Allergy (Verified 12/26/18 09:41) Past Medical History - Social History Chew tobacco use (# tins/day): No Frequency of alcohol use: None Drug Abuse: None - Past Medical History Cardiac Medical History: Reports: Hx Hypertension Denies: Hx Congestive Heart Failure, Hx Coronary Artery Disease, Hx Heart Attack Pulmonary Medical History: Denies: Hx Asthma, Hx Bronchitis, Hx COPD, Hx Pneumonia, Hx Tuberculosis Neurological Medical History: Denies: Hx Cerebrovascular Accident, Hx Seizures, Hx Parkinson's Disease Renal/ Medical History: Reports: Hx Benign Prostatic Hyperplasia - enlarged but surgery and ok now, Hx End Stage Renal Disease. Denies: Hx Kidney Stones, Hx Peritoneal Dialysis GI Medical History: Reports: Hx Gastroesophageal Reflux Disease, Hx Ulcer - 1989 surgery for ulcers. Denies: Hx Cirrhosis, Hx Hepatitis, Hx Hiatal Hernia Musculoskeltal Medical History: Denies Hx Arthritis, Denies Hx Multiple Sclerosis Psychiatric Medical History: Denies: Hx Bipolar Disorder, Hx Depression, Hx Schizophrenia Infectious Medical History: Denies: Hx Hepatitis Past Surgical History: Denies: Hx Open Heart Surgery, Hx Pacemaker - Immunizations Hx Diphtheria, Pertussis, Tetanus Vaccination: Yes Physical Exam - Vital signs Vitals: Temp Pulse Resp BP Pulse Ox 98.6 F 82 18 107/54 L 97 03/20/19 11:09 03/20/19 11:09 03/20/19 11:09 03/20/19 11:09 03/20/19 11:09 Course - Vital Signs Vital signs: Temp Pulse Resp BP Pulse Ox 98.6 F 82 18 107/54 L 97 03/20/19 11:38 03/20/19 11:38 03/20/19 11:38 03/20/19 11:38 03/20/19 11:38 Doctor's Discharge - Discharge Referrals: LUIS CHAUDHARY MD [Primary Care Provider] - Follow up as needed
[2019-03-20] MEDS ORDERED: TRANEXAMIC ACID INJ/PF 1,000 MG/10 ML SDV TOP ONE (13:17)
--- NOTE | 2019-03-20 13:41 | ER Document Report ---
Entered by TAMIKA MOORE SCRIBE 03/20/19 [id number] Acting as scribe for:JAYANT ALEMAN MD ED General - General Chief Complaint: Skin Tear(s) Stated Complaint: ARM PAIN/BLEEDING Time Seen by Provider: 03/20/19 11:37 Primary Care Provider: LUIS CHAUDHARY MD [Primary Care Provider] - Follow up as needed Information source: Patient Notes: This 69 year old male patient presents to the ED today with complaints of a leaking fistula and skin tears around his dialysis shunt on his LUE for the past x2 weeks. Patient reports that he had a bandaid on the skin tear on his right forearm, but when it was removed, it started bleeding. Patient states that he had a complete dialysis treatment today. Patient had an fistulagram and angioplasty on 02/25/19. TRAVEL OUTSIDE OF THE [place] IN LAST 30 DAYS: No - Related Data Allergies/Adverse Reactions: No Known Allergies Allergy (Verified 12/26/18 09:41) Past Medical History - General Information source: Patient - Social History Smoking Status: Former Smoker Cigarette use (# per day): No Chew tobacco use (# tins/day): No Frequency of alcohol use: None Drug Abuse: None Family History: Reviewed & Not Pertinent Patient has suicidal ideation: No Patient has homicidal ideation: No - Past Medical History Cardiac Medical History: Reports: Hx Hypertension Renal/ Medical History: Reports: Hx Benign Prostatic Hyperplasia - enlarged but surgery and ok now, Hx End Stage Renal Disease GI Medical History: Reports: Hx Gastroesophageal Reflux Disease, Hx Ulcer - 1989 surgery for ulcers Past Surgical History: Reports: Hx Genitourinary Surgery - for BPH - Immunizations Hx Diphtheria, Pertussis, Tetanus Vaccination: Yes Hx Pneumococcal Vaccination: 04/02/13 Review of Systems - Review of Systems Constitutional: See HPI, Other - bleeding from AV fistula in LUE EENT: No symptoms reported Cardiovascular: No symptoms reported Respiratory: No symptoms reported Gastrointestinal: No symptoms reported Genitourinary: No symptoms reported Male Genitourinary: No symptoms reported Musculoskeletal: No symptoms reported, See HPI Skin: See HPI, Other - skin tears with bleeding on right forearm Hematologic/Lymphatic: No symptoms reported Neurological/Psychological: No symptoms reported -: Yes All other systems reviewed and negative Physical Exam - Vital signs Vitals: Temp Pulse Resp BP Pulse Ox 98.6 F 82 18 107/54 L 97 03/20/19 11:09 03/20/19 11:09 03/20/19 11:09 03/20/19 11:09 03/20/19 11:09 Interpretation: Normal - General General appearance: Alert - HEENT Head: Normocephalic, Atraumatic Eyes: Normal Pupils: PERRL - Respiratory Respiratory status: No respiratory distress Chest status: Nontender Breath sounds: Normal Chest palpation: Normal - Cardiovascular Rhythm: Regular Heart sounds: Normal auscultation Murmur: No - Abdominal Inspection: Normal Distension: No distension Bowel sounds: Normal Tenderness: Nontender Organomegaly: No organomegaly - Back Back: Normal, Nontender - Extremities General upper extremity: Other - The left upper extremity has the AV fistula. There are 4 separate areas of minor skin tears that are oozing blood, only 1 of these is over a fistula puncture site. There is also a small skin defect on the distal dorsal forearm that is weeping serous fluid. The entire extremity is edematous. General lower extremity: Normal inspection Forearm: Ecchymosis - left forearm is swollen and ecchymotic, Laceration - right dorsal hand has a 0.25 cm x 1 cm superficial skin avulsion exposing the dermis layer which has several pinpoint bleeders oozing blood. There is also a 2 cm transverse skin tear where the skin is intact and present and there is blood oozing from the skin tear. There is a smaller skin tear on the dorsal proximal forearm that is oozing blood. - Neurological Neuro grossly intact: Yes - Psychological Associated symptoms: Normal affect, Normal mood - Skin Skin Temperature: Warm Skin Moisture: Dry Skin Color: Normal Course - Re-evaluation Re-evalutation: 03/20/19 15:01 Although the skin wounds were treated with TXA and Telfa dressings with Coban for pressure. - Vital Signs Vital signs: Temp Pulse Resp BP Pulse Ox 98.6 F 82 18 107/54 L 97 03/20/19 11:38 03/20/19 11:38 03/20/19 11:38 03/20/19 11:38 03/20/19 11:38 - Consults Dr. Everett Hunter Time consulted: 14:50 Consulted provider: other - Will see in the wound care clinic tomorrow. Discharge - Discharge Clinical Impression: Multiple skin tears Condition: Stable Disposition: HOME, SELF-CARE Additional Instructions: Try to elevate your arms as much as possible. Follow-up with Dr. Everett Hunter at the wound care clinic tomorrow at 1 PM. RETURN TO THE EMERGENCY ROOM IF ANY NEW OR WORSENING SYMPTOMS. Referrals: LUIS CHAUDHARY MD [Primary Care Provider] - Follow up as needed WOUND CARE [Outside] - 03/21/19 1:00 pm Scribe Attestation: 03/20/19 15:06 I personally performed the services described in the documentation, reviewed and edited the documentation which was dictated to the scribe in my presence, and it accurately records my words and actions. I personally performed the services described in the documentation, reviewed and edited the documentation which was dictated to the scribe in my presence, and it accurately records my words and actions.
[2019-03-20 17:18] VITALS: BP 97/51
--- NOTE | 2019-03-21 15:55 | EKG REPORT ---
SEVERITY:- BORDERLINE ECG - SINUS RHYTHM BORDERLINE PROLONGED QT INTERVAL BorderlineQ wave : Confirmed by: Rodger Gordon 21-Mar-2019 15:54:30
== END 2019-03-20 15:30 | disposition home or self-care (01) ==
LOC: ER 11:03
DX: S51.811A Laceration without foreign body of right forearm, initial encounter (principal); X58.XXXA Exposure to other specified factors, initial encounter; R42 Dizziness and giddiness; R53.1 Weakness; I12.0 Hypertensive chronic kidney disease with stage 5 chronic kidney disease or end stage renal disease; N18.6 End stage renal disease; Z99.2 Dependence on renal dialysis; C61 Malignant neoplasm of prostate
CPT/HCPCS: 93005; 99283; 96374; 82962; 93010; J3490

== ENCOUNTER 2019-03-21 09:02 | Inpatient (IN) | payer MEDICARE, OTHER ==
--- NOTE | 2019-03-21 10:29 | ER Document Report ---
ED General - General Chief Complaint: Skin Tear(s) Stated Complaint: SKIN TEARS Time Seen by Provider: 03/21/19 09:45 Mode of Arrival: Ambulatory Information source: Patient Notes: 69-year-old male patient presenting to the emergency department by the request of Dr. Everett Hunter for bleeding from his dialysis fistula site and also bleeding from his bilateral arms. He has multiple skin tears, he has blood oozing from them. Patient also has bleeding noted from multiple areas over his dialysis fistula in his left upper arm. TRAVEL OUTSIDE OF THE [place] IN LAST 30 DAYS: No - Related Data Allergies/Adverse Reactions: No Known Allergies Allergy (Verified 12/26/18 09:41) Past Medical History - Social History Smoking Status: Unknown if Ever Smoked Family History: Reviewed & Not Pertinent - Past Medical History Cardiac Medical History: Reports: Hx Hypertension Denies: Hx Congestive Heart Failure, Hx Coronary Artery Disease, Hx Heart Attack Pulmonary Medical History: Denies: Hx Asthma, Hx Bronchitis, Hx COPD, Hx Pneumonia, Hx Tuberculosis Neurological Medical History: Denies: Hx Cerebrovascular Accident, Hx Seizures, Hx Parkinson's Disease Renal/ Medical History: Reports: Hx Benign Prostatic Hyperplasia - enlarged but surgery and ok now, Hx End Stage Renal Disease. Denies: Hx Kidney Stones, Hx Peritoneal Dialysis GI Medical History: Reports: Hx Gastroesophageal Reflux Disease, Hx Ulcer - 1990 surgery for ulcers. Denies: Hx Cirrhosis, Hx Hepatitis, Hx Hiatal Hernia Musculoskeletal Medical History: Denies Hx Arthritis, Denies Hx Multiple Scle rosis Psychiatric Medical History: Denies: Hx Bipolar Disorder, Hx Depression, Hx Schizophrenia Infectious Medical History: Denies: Hx Hepatitis Past Surgical History: Reports: Hx Genitourinary Surgery - for BPH. Denies: Hx Open Heart Surgery, Hx Pacemaker - Immunizations Hx Diphtheria, Pertussis, Tetanus Vaccination: Yes Hx Pneumococcal Vaccination: 04/02/13 Review of Systems - Review of Systems Constitutional: Weakness EENT: No symptoms reported Cardiovascular: No symptoms reported Respiratory: No symptoms reported Gastrointestinal: No symptoms reported Genitourinary: No symptoms reported Male Genitourinary: No symptoms reported Musculoskeletal: No symptoms reported Skin: See HPI Hematologic/Lymphatic: No symptoms reported Neurological/Psychological: No symptoms reported Physical Exam - Vital signs Vitals: Temp Pulse Resp BP Pulse Ox 98.4 F 84 18 91/42 L 100 03/21/19 09:11 03/21/19 09:11 03/21/19 09:11 03/21/19 09:11 03/21/19 09:11 - Notes Notes: PHYSICAL EXAMINATION: GENERAL: Well-appearing, well-nourished and in no acute distress. HEAD: Atraumatic, normocephalic. EYES: Pupils equal round and reactive to light, extraocular movements intact, sclera anicteric, conjunctiva are normal. ENT: Nares patent, oropharynx clear without exudates. Moist mucous membranes. NECK: Normal range of motion, supple without lymphadenopathy LUNGS: Breath sounds clear to auscultation bilaterally and equal. No wheezes rales or rhonchi. HEART: Regular rate and rhythm without murmurs ABDOMEN: Soft, nontender, nondistended abdomen. No guarding, no rebound. No masses appreciated. Musculoskeletal: Normal range of motion, no pitting or edema. No cyanosis. NEUROLOGICAL: Cranial nerves grossly intact. Normal speech, normal gait. Normal sensory, motor exams PSYCH: Normal mood, normal affect. SKIN: Multiple skin tears noted to bilateral forearms, oozing blood. Fistula noted to left upper arm, multiple sites oozing blood. Course - Re-evaluation Re-evalutation: Dr. Marroquin came to the bedside per my request to evaluate the patient. Dressings changed to patient's bilateral arms as well as fistula site, the dressing to the fistula site was saturated with approximately 300 mL's of blood. The states this dressing was placed by the vascular surgeon approximately 1 hour prior to arrival. The external bleeding was stopped with Dermabond as placed by Dr. Marroquin. The patient is alert, oriented, answering all questions, appears nontoxic. It has been difficult to obtain accurate blood pressures on the patient due to the blood pressure cuff needing to be placed on the patient's leg. 03/21/19 12:50 Consulted hand candle molder, Dr. Barlow per recommendation of Dr. Marroquin. His recommendations are as follows: Add on factor VIII labs. Reduce product replacement down to 1 unit of FFP. Give vitamin K 10 mg IV. Give DDAVP 23 mcg IV. Give kcentra per pharmacy dosing. Plan to admit to medicine as patient does not meet ICU criteria. 03/21/19 13:35 Dr. Barlow came to the department and states that the pharmacy consulted with him regarding the Kcentra and at this time they will not release the medication, we will continue with plan as outlined above minus the Kcentra. 03/21/19 14:03 Lara Leiva COMBATANT DIVER OFFICER called for patient admission. She has requested that I consult Dr. Rubén Kirkland prior to accepting patient. 03/21/19 14:05 Paged nephrology, Dr. Rubén Kirkland through the single needle operator. 03/21/19 14:[address] Kirkland and he is ok with admitting the patient. 03/21/19 14:30 Spoke with Hospitalist, Dr. Serrano who will come to evaluate the patient. - Vital Signs Vital signs: Temp Pulse Resp BP Pulse Ox 99.4 F 72 16 116/62 100 03/22/19 15:20 03/22/19 15:20 03/22/19 15:20 03/22/19 15:20 03/22/19 15:20 - Laboratory Result Diagrams: 03/22/19 05:05 03/22/19 05:05 Laboratory results interpreted by me: 03/21/19 03/21/19 03/21/19 11:25 11:25 11:25 RBC 2.44 L Hgb 7.8 L Hct 23.2 L RDW 19.2 H PT INR APTT Sodium 136.0 L Chloride 96 L BUN 29 H Creatinine 4.13 H Est GFR ( Amer) 17 L Est GFR (MDRD) Non-Af 14 L Calcium 6.8 L* Direct Bilirubin 0.7 H Total Protein 4.8 L Albumin 2.2 L Crossmatch See Detail 03/21/19 03/21/19 11:25 11:25 RBC Hgb Hct RDW PT 93.2 H* INR 11.50 H* APTT 159.3 H* Sodium Chloride BUN Creatinine Est GFR ( Amer) Est GFR (MDRD) Non-Af Calcium Direct Bilirubin Total Protein Albumin Crossmatch Discharge - Discharge Clinical Impression: Coagulopathy, Multiple skin tears Anemia Qualifiers: Anemia type: due to chronic kidney disease Chronic kidney disease stage: on chronic dialysis Qualified Code(s): N18.6 - End stage renal disease Condition: Fair Disposition: ADMITTED INPATIENT Admitting Provider: Zach (Hospitalist) Unit Admitted: [facility]
[2019-03-21 11:39] LABS: ABSOLUTE EOSINOPHILS # (AUTO) 0.1 10^3/uL (0.0-0.6); ABSOLUTE LYMPHOCYTES (AUTO) 1.1 10^3/uL (0.5-4.7); ABSOLUTE MONOCYTES (AUTO) 0.3 10^3/uL (0.1-1.4); ABSOLUTE NEUT (AUTO) 3.3 10^3/uL (1.7-8.2); EOSINOPHILS % (AUTO) 1.8 % (0-6); HEMATOCRIT 23.2 % (37.9-51.0); MEAN CORPUSCULAR HEMOGLOBIN 32.1 pg (27.0-33.4); MEAN CORPUSCULAR HGB CONC 33.8 g/dL (32.0-36.0); MONOCYTES % (AUTO) 6.5 % (3-13); PLATELET COUNT 204 10^3/uL (150-450); RED BLOOD COUNT 2.44 10^6/uL (4.35-5.55); RED CELL DISTRIBUTION WIDTH 19.2 % (11.5-14.0); SEGMENTED NEUTROPHILS % (AUTO) 68.7 % (42-78); TOTAL CELLS COUNTED % (AUTO) 100 %; WHITE BLOOD COUNT 4.8 10^3/uL (4.0-10.5)
[2019-03-21 11:43] LABS: HEMOGLOBIN 7.8 g/dL (13.5-17.0); MEAN CORPUSCULAR VOLUME 95 fl (80-97)
[2019-03-21] MEDS ORDERED: NORMAL SALINE 250 ML IV PRN (12:08)
[2019-03-21] MEDS ORDERED: PHYTONADIONE INJ 10 MG/1 ML AMPULE SUBCUT ONE (12:10)
[2019-03-21 12:13] LABS: PROTHROMBIN TIME 93.2 SEC (11.4-15.4)
[2019-03-21 12:14] LABS: ALBUMIN 2.2 g/dL (3.5-5.0); ALKALINE PHOSPHATASE 82 U/L (38-126); ANION GAP 12 (5-19); ASPARTATE AMINO TRANSFERASE 27 U/L (17-59); BILIRUBIN,DIRECT 0.7 mg/dL (0.0-0.4); BILIRUBIN,TOTAL 0.9 mg/dL (0.2-1.3); BLOOD UREA NITROGEN 29 mg/dL (7-20); CARBON DIOXIDE 28 mmol/L (22-30); CHLORIDE 96 mmol/L (98-107); GLUCOSE 78 mg/dL (75-110); POTASSIUM 3.6 mmol/L (3.6-5.0); TOTAL PROTEIN 4.8 g/dL (6.3-8.2)
[2019-03-21 12:36] LABS: CALCIUM 6.8 mg/dL (8.4-10.2)
[2019-03-21] MEDS ORDERED: PHYTONADIONE INJ 10 MG/1 ML AMPULE IV ONE (12:52)
[2019-03-21] MEDS ORDERED: NORMAL SALINE IV ONE (12:54)
[2019-03-21] MEDS ORDERED: DESMOPRESSIN ACETATE IV ONE (12:54)
--- NOTE | 2019-03-21 15:50 | EKG REPORT ---
SEVERITY:- BORDERLINE ECG - SINUS RHYTHM MINIMAL ST DEPRESSION, ANTEROLATERAL LEADS BORDERLINE PROLONGED QT INTERVAL : Confirmed by: Rodger Gordon 21-Mar-2019 15:49:56
--- NOTE | 2019-03-21 16:43 | PDOC H&P ---
History of Present Illness Admission Date/PCP: LUIS CHAUDHARY History of Present Illness: FRIEDA [place] is a 69 year old male with a history of metastatic prostate cancer on chemotherapy who also has end-stage renal disease on dialysis who presents with bleeding skin tears. He said he is never had any history of any, bleeding problem at all and does not take anticoagulants. He had some tears on his skin that were bleeding and so he came to the ER yesterday and they bandaged him up and he went home. He went back to the wound clinic today for a follow-up visit and they saw his skin tears were still bleeding and so they sent him back to the ER. Some labs were checked in the ER and it was noted that he had an extraordinarily high INR, especially considering he had no prior history of any liver disease, no history of any coagulopathy, and no history of anticoagulant use. He is being admitted for further evaluation and management. Past Medical History Cardiac Medical History: Reports: Hypertension Denies: Congestive Heart Failure, Coronary Artery Disease, Myocardial Infarction Pulmonary Medical History: Denies: Asthma, Bronchitis, Chronic Obstructive Pulmonary Disease (COPD), Pneumonia, Tuberculosis Neurological Medical History: Denies: Seizures Renal/ Medical History: Reports: End Stage Renal Disease GI Medical History: Reports: Gastroesophageal Reflux Disease Denies: Cirrhosis, Hepatitis, Hiatal Hernia Musculoskeltal Medical History: Denies: Arthritis Psychiatric Medical History: Denies: Bipolar Disorder, Depression Hematology: Reports: Anemia, Bleeding Tendencies Denies: Sickle Cell Disease Past Surgical History Past Surgical History: Denies: Pacemaker Social History Smoking Status: Unknown if Ever Smoked Frequency of Alcohol Use: None Hx Recreational Drug Use: No Drugs: None Hx Prescription Drug Abuse: No Family History Family History: Reviewed & Not Pertinent Parental Family History Reviewed: Yes - Unreliable historian Children Family History Reviewed: Yes - Unreliable historian Sibling(s) Family History Reviewed.: Yes - Unreliable historian Medication/Allergy Home Medications: Epoetin Gerber [Procrit Inj 40,000 Unit/1 ml Vial (Oncology)] 40,000 unit SUBCUT .2WEEKS 05/17/16 Amlodipine Besylate [Norvasc 10 mg Tablet] 1 tab PO DAILY 02/25/19 Enzalutamide [Xtandi] 1 tab PO DAILY 02/25/19 Fenofibrate 145 mg PO DAILY 02/25/19 Levothyroxine Sodium [Levo-T] 1 tab PO DAILY 02/25/19 Oxycodone HCl/Acetaminophen [Oxycodon-Acetaminophen 7.5-325] 1 tab PO DAILY 02/25/19 Pantoprazole Sodium [Protonix [address] Tablet] 1 tab PO DAILY 02/25/19 Prochlorperazine Maleate [Compazine 10 mg Tablet] 1 tab PO TID PRN 02/25/19 Sevelamer Carbonate [Renvela] 3 tab PO TID 02/25/19 Vit D3/Folic Acid/B2/B6/B12 [Folgard Tablet] 1 tab PO DAILY 02/25/19 Allergies/Adverse Reactions: No Known Allergies Allergy (Verified 12/26/18 09:41) Review of Systems All systems: reviewed and no additional remarkable complaints except as stated - He is a fairly unreliable historian, but all systems were reviewed and were negative except as noted in the HPI Physical Exam Vital Signs: Temp Pulse Resp BP Pulse Ox 99.1 F 75 20 96/36 L 99 03/21/19 15:40 03/21/19 16:01 03/21/19 16:01 03/21/19 16:01 03/21/19 16:01 Intake & Output 03/20/19 03/21/19 03/22/19 06:59 06:59 06:59 Intake Total 55.75 Balance 55.75 Weight 86.183 kg General appearance: PRESENT: no acute distress, cooperative, disheveled Head exam: PRESENT: atraumatic, normocephalic Eye exam: PRESENT: EOMI, PERRLA. ABSENT: conjunctival injection, nystagmus, scleral icterus Ear exam: PRESENT: normal external ear exam Mouth exam: PRESENT: moist, neck supple Teeth exam: PRESENT: poor dentation Throat exam: ABSENT: post pharyngeal erythema Neck exam: PRESENT: full ROM. ABSENT: carotid bruit, JVD, lymphadenopathy, meningismus, tenderness, thyromegaly Respiratory exam: PRESENT: clear to auscultation vane, symmetrical, unlabored. ABSENT: accessory muscle use, chest wall tenderness, crackles, prolonged expiratory phas, rhonchi, tachypnea, wheezes Cardiovascular exam: PRESENT: RRR, +S1, +S2 Pulses: PRESENT: normal carotid pulses Vascular exam: PRESENT: normal capillary refill GI/Abdominal exam: PRESENT: normal bowel sounds, soft. ABSENT: diminished bowel sounds, guarding, rebound, tenderness Extremities exam: ABSENT: clubbing, pedal edema Musculoskeletal exam: PRESENT: normal inspection. ABSENT: deformity Neurological exam: PRESENT: alert, awake, oriented to person, oriented to place, oriented to situation, CN II-XII grossly intact. ABSENT: motor sensory deficit Psychiatric exam: PRESENT: appropriate affect, normal mood Skin exam: PRESENT: dry, skin tears - He had numerous ecchymoses on the upper extremities, primarily distal to the elbows, along with oozing skin tears that had nonstick bandages applied to them. He also had some pitting edema in his upper extremities distal to the elbows bilaterally, warm Results Laboratory Results: 03/21/19 11:25 03/21/19 11:25 03/21/19 03/21/19 03/21/19 09:48 09:48 11:25 WBC Cancelled RBC Cancelled Hgb Cancelled Hct Cancelled MCV Cancelled MCH Cancelled MCHC Cancelled RDW Cancelled Plt Count Cancelled Seg Neutrophils % Cancelled Sodium Cancelled Potassium Cancelled Chloride Cancelled Carbon Dioxide Cancelled Anion Gap Cancelled BUN Cancelled Creatinine Cancelled Est GFR ( Amer) Cancelled Est GFR (Non-Af Amer) Cancelled Glucose Cancelled Calcium Cancelled Total Bilirubin Cancelled AST Cancelled Alkaline Phosphatase Cancelled Total Protein Cancelled Albumin Cancelled Blood Type A NEGATIVE Antibody Screen NEGATIVE 03/21/19 03/21/19 11:25 11:25 WBC 4.8 RBC 2.44 L Hgb 7.8 L Hct 23.2 L MCV 95 D MCH 32.1 MCHC 33.8 RDW 19.2 H Plt Count 204 Seg Neutrophils % 68.7 Sodium 136.0 L Potassium 3.6 Chloride 96 L Carbon Dioxide 28 Anion Gap 12 BUN 29 H Creatinine 4.13 H Est GFR ( Amer) 17 L Est GFR (Non-Af Amer) Glucose 78 Calcium 6.8 L* Total Bilirubin 0.9 AST 27 Alkaline Phosphatase 82 Total Protein 4.8 L Albumin 2.2 L Blood Type Antibody Screen Assessment and Plan - Diagnosis (1) Coagulopathy Is this a current diagnosis for this admission?: Yes Plan: He does not take anticoagulants. He does not have any history of liver disease. The Xtandi that he takes for his metastatic prostate cancer is not associated with a coagulopathy or liver toxicity. He does not have any history of any sort of coagulation disorder. I have consulted Dr. Head. The question seems to be whether or not he has a clotting factor deficiency, versus the presence of an antibody inhibitor. He is getting 1 unit of packed red blood cells. He is getting a unit of FFP and some IV vitamin K. We will run a repeat his coagulation studies after he is gotten these 2 drugs. We are going to obtain a mixing study to help us tell if this is a deficiency of a clotting factor versus the presence of inhibitor. (2) Prostate cancer metastatic to bone Is this a current diagnosis for this admission?: Yes Plan: We will continue Xtandi (3) Anemia Qualifiers: Anemia type: due to chronic kidney disease Chronic kidney disease stage: on chronic dialysis Qualified Code(s): N18.6 - End stage renal disease; D63.1 - Anemia in chronic kidney disease; Z99.2 - Dependence on renal dialysis Is this a current diagnosis for this admission?: Yes Plan: He is chronically anemic and gets Procrit shots with dialysis (4) Multiple skin tears Is this a current diagnosis for this admission?: Yes Plan: Local wound care as needed (5) ESRD on hemodialysis Is this a current diagnosis for this admission?: Yes Plan: Nephrology has been consulted. He normally does dialysis on Tuesdays, , and Saturdays, and had his last treatment yesterday. They spoke with Dr. Kirkland while the patient was still in the ER, and they told me that Dr. Kirkland said the patient should be okay to wait until he gets dialysis on Sunday as long as we do not fluid overload him. - Time Time Spent with patient: 35 or more minutes - Inpatient Certification Based on my medical assessment, after consideration of the patient's comorbidities, presenting symptoms, or acuity I expect that the services needed warrant INPATIENT care.: Yes I certify that my determination is in accordance with my understanding of Medicare's requirements for reasonable and necessary INPATIENT services [42 CFR 412.3e].: Yes Medical Necessity: Significant Comorbidiites Make Outpatient Treatment Too R isky, Need Close Monitoring Due to Risk of Patient Decompensation, Risk of Complication if Not Cared For in Hospital, Risk of Diagnosis Which Will Require Inpatient Eval/Care/Monitoring
--- NOTE | 2019-03-21 19:47 | PDOC CONSULTATION ---
Consultation Consult Date: 03/21/19 Provider Consulted: OSORIO HUDDLESTON Consult reason:: Hematology/Oncology consultation was requested for patient on active therapy for prostate cancer who presents with bleeding and abnormal PT and PTT. History of Present Illness Admission Date/PCP: 03/21/19 16:26 LUIS CHAUDHARY History of Present Illness: FRIEDA [place] is a 69 year old male who is currently followed in [place] for his Prostate cancer. Most recently, he has been on Xtandi and Lupron. He has been seeing Dr. Rosario for anemia and gives himself Procrit injections. He is on renal dialysis 3 times a week for chronic renal failure. His last dialysis treatment was . He presented to the hospital with a 2 day history of bleeding in his arms and dialysis site. He denies any new health concerns or new medications. He was found to have INR 11.5 and PTT of 159.3. His HGB is 7.8 which is lower than his baseline around 9. Currently, patient states that he is feeling well except for back pain. He would like for the bleeding to stop. Past Medical History Cardiac Medical History: Reports: Hypertension Denies: Congestive Heart Failure, Coronary Artery Disease, Myocardial Infarction Pulmonary Medical History: Denies: Asthma, Bronchitis, Chronic Obstructive Pulmonary Disease (COPD), Pneumonia, Tuberculosis Neurological Medical History: Denies: Seizures Renal/ Medical History: Reports: End Stage Renal Disease Malignancy Medical History: Reports: Other - Prostate cancer diagnosed 2016. Deepika 4+4=8 GI Medical History: Reports: Gastroesophageal Reflux Disease Denies: Cirrhosis, Hepatitis, Hiatal Hernia Musculoskeltal Medical History: Denies: Arthritis Psychiatric Medical History: Denies: Bipolar Disorder, Depression Hematology: Reports: Anemia, Bleeding Tendencies Denies: Sickle Cell Disease Past Surgical History Past Surgical History: Reports: Other - left arm fistula 2016. Ulcer surgery 1984 Denies: Pacemaker Social History Smoking Status: Former Smoker Number of Years Smokin Last Time Smoked: 24 years ago Frequency of Alcohol Use: None Hx Recreational Drug Use: No Drugs: None Hx Prescription Drug Abuse: No Family History Parental Family History Reviewed: Yes - Mother with brain cancer. Father with lung cancer Children Family History Reviewed: No Sibling(s) Family History Reviewed.: No Medication/Allergy Home Medications: Epoetin Gerber [Procrit Inj 40,000 Unit/1 ml Vial (Oncology)] 40,000 unit SUBCUT .QWEEKLY 05/17/16 Amlodipine Besylate [Norvasc 10 mg Tablet] 10 mg PO DAILY 02/25/19 Enzalutamide [Xtandi] 160 mg PO Q12 MDD 8 tabs 02/25/19 Fenofibrate 145 mg PO DAILY 02/25/19 Oxycodone HCl/Acetaminophen [Oxycodon-Acetaminophen 7.5-325] 1 tab PO Q8HP PRN 02/25/19 Pantoprazole Sodium [Protonix [address] Tablet] 40 mg PO DAILY 02/25/19 Prochlorperazine Maleate [Compazine 10 mg Tablet] 10 mg PO Q8HP PRN 02/25/19 Sevelamer Carbonate [Renvela] 2,400 mg PO MEALS 02/25/19 Ergocalciferol (Vitamin D2) [Vitamin D2] 50,000 unit PO .[id number] 03/21/19 Megestrol Acetate 10 ml PO DAILY 03/21/19 Ondansetron HCl 4 mg PO BIDP PRN 03/21/19 Promethazine HCl [Phenergan 25 mg Tablet] 25 mg PO Q8HP PRN 03/21/19 Sevelamer Carbonate 800 mg PO .SNACKS 03/21/19 Allergies/Adverse Reactions: No Known Allergies Allergy (Verified 12/26/18 09:41) Review of Systems Constitutional: ABSENT: fever(s), headache(s) Eyes: ABSENT: visual disturbances Ears: ABSENT: hearing changes Nose, Mouth, and Throat: ABSENT: sore throat Cardiovascular: ABSENT: chest pain Respiratory: ABSENT: dyspnea Gastrointestinal: ABSENT: abdominal pain, nausea Genitourinary: ABSENT: dysuria Musculoskeletal: PRESENT: back pain Neurological: ABSENT: frequent falls Hematologic/Lymphatic: PRESENT: as per HPI Physical Exam Vital Signs: Temp Pulse Resp BP Pulse Ox 98.7 F 75 28 H 101/59 L 98 03/21/19 18:43 03/21/19 18:42 03/21/19 18:42 03/21/19 18:43 03/21/19 18:42 Intake & Output 03/20/19 03/21/19 03/22/19 06:59 06:59 06:59 Intake Total 381.75 Balance 381.75 Weight 86.183 kg General appearance: PRESENT: no acute distress, well-developed, well-nourished Head exam: PRESENT: normocephalic Eye exam: PRESENT: EOMI, PERRLA Mouth exam: PRESENT: moist, tongue midline Neck exam: ABSENT: lymphadenopathy, tenderness Respiratory exam: PRESENT: clear to auscultation vane, unlabored Cardiovascular exam: PRESENT: RRR GI/Abdominal exam: PRESENT: distended, normal bowel sounds. ABSENT: tenderness Extremities exam: PRESENT: +1 edema Neurological exam: PRESENT: alert, awake Psychiatric exam: PRESENT: appropriate affect Skin exam: PRESENT: skin tears, other - echymoses over both arms. Results Laboratory Results: 03/21/19 11:25 03/21/19 11:25 03/21/19 03/21/19 03/21/19 09:48 09:48 11:25 WBC Cancelled RBC Cancelled Hgb Cancelled Hct Cancelled MCV Cancelled MCH Cancelled MCHC Cancelled RDW Cancelled Plt Count Cancelled Seg Neutrophils % Cancelled Sodium Cancelled Potassium Cancelled Chloride Cancelled Carbon Dioxide Cancelled Anion Gap Cancelled BUN Cancelled Creatinine Cancelled Est GFR ( Amer) Cancelled Est GFR (Non-Af Amer) Cancelled Glucose Cancelled Calcium Cancelled Total Bilirubin Cancelled AST Cancelled Alkaline Phosphatase Cancelled Total Protein Cancelled Albumin Cancelled Blood Type A NEGATIVE Antibody Screen NEGATIVE 03/21/19 03/21/19 11:25 11:25 WBC 4.8 RBC 2.44 L Hgb 7.8 L Hct 23.2 L MCV 95 D MCH 32.1 MCHC 33.8 RDW 19.2 H Plt Count 204 Seg Neutrophils % 68.7 Sodium 136.0 L Potassium 3.6 Chloride 96 L Carbon Dioxide 28 Anion Gap 12 BUN 29 H Creatinine 4.13 H Est GFR ( Amer) 17 L Est GFR (Non-Af Amer) Glucose 78 Calcium 6.8 L* Total Bilirubin 0.9 AST 27 Alkaline Phosphatase 82 Total Protein 4.8 L Albumin 2.2 L Blood Type Antibody Screen Assessment & Plan - Diagnosis (1) Active bleeding Is this a current diagnosis for this admission?: Yes Plan: Patient has received FFP. Repeat PT/PTT are ordered for in the morning. There are a number of possible causes of this. Most common would be either contamination of the specimen from a drug, or exogenous medication causing this. Other possibilities are severe Vit K deficiency, although this usually should not affect PTT as well, coalgulation deficiency, or factor inhibitor. I would repeat PT/PTT and also request mixing study to rule out inhibitor. (2) Anemia Qualifiers: Anemia type: due to chronic kidney disease Chronic kidney disease stage: on chronic dialysis Qualified Code(s): N18.6 - End stage renal disease; D63.1 - Anemia in chronic kidney disease; Z99.2 - Dependence on renal dialysis Is this a current diagnosis for this admission?: Yes Plan: Transfuse as needed. He is on Procrit weekly 40,000 units. This should continue if possible. (3) ESRD on hemodialysis Is this a current diagnosis for this admission?: Yes Plan: Treatment per nephrology. - Plan Summary Plan Summary: Patient was discussed with Dr. Hernandez. Dr. Rosario will see patient through the holiday week. Please call with any concerns.
[2019-03-21] MEDS: OXYCODONE HCL IR 5 MG TABLET PO PRN (21:53)
[2019-03-22] MEDS: OXYCODONE HCL IR 5 MG TABLET PO PRN ×3 (04:56→21:25)
[2019-03-22 05:50] LABS: MEAN CORPUSCULAR HEMOGLOBIN 32.6 pg (27.0-33.4); MEAN CORPUSCULAR HGB CONC 33.8 g/dL (32.0-36.0); MEAN CORPUSCULAR VOLUME 96 fl (80-97); PLATELET COUNT 195 10^3/uL (150-450); RED BLOOD COUNT 2.18 10^6/uL (4.35-5.55); RED CELL DISTRIBUTION WIDTH 19.2 % (11.5-14.0)
[2019-03-22 05:53] LABS: PARTIAL THROMBOPLASTIN TIME 39.5 SEC (23.5-35.8)
[2019-03-22 06:01] LABS: INTERNATIONAL RATION (INR) 1.15
[2019-03-22 06:04] LABS: HEMOGLOBIN 7.1 g/dL (13.5-17.0)
[2019-03-22 06:05] LABS: PROTHROMBIN TIME 14.8 SEC (11.4-15.4)
[2019-03-22 06:15] LABS: ANION GAP 14 (5-19); BLOOD UREA NITROGEN 36 mg/dL (7-20); CARBON DIOXIDE 25 mmol/L (22-30); CHLORIDE 95 mmol/L (98-107); GLUCOSE 81 mg/dL (75-110); POTASSIUM 3.5 mmol/L (3.6-5.0)
[2019-03-22 06:27] LABS: CALCIUM 6.8 mg/dL (8.4-10.2)
[2019-03-22] MEDS ORDERED: (PENDING PHARMACY ID) (Oxycodone Hcl/Acetaminophen [Oxycodon-Acetaminophen 7.5-325] 1 TAB) PO PRN (10:23)
[2019-03-22] MEDS ORDERED: SEVELAMER CARBONATE 800 MG PO SCH (10:30)
[2019-03-22] MEDS ORDERED: VANCOMYCIN HCL 0 MG in DEXTROSE 5%-WATER 250 ML IV NR (10:45)
[2019-03-22] MEDS ORDERED: SEVELAMER HCL 800 MG TABLET PO PRN (10:54)
[2019-03-22] MEDS ORDERED: (PENDING PHARMACY ID) (Sevelamer Carbonate [Renvela] 2,400 MG) PO SCH (12:00)
[2019-03-22] MEDS: SEVELAMER HCL 800 MG TABLET PO SCH ×2 (12:21→17:50)
[2019-03-22] MEDS: OXYCODONE-ACETAMINOPHEN 5-325 MG TABLET PO PRN ×2 (12:22→21:26)
[2019-03-22] MEDS: FENOFIBRATE NANOCRYSTALLIZED 145 MG TABLET PO SCH (12:22)
[2019-03-22] MEDS: PANTOPRAZOLE SODIUM 40 MG TABLET.DR PO SCH (12:23)
[2019-03-22] MEDS ORDERED: VANCOMYCIN HCL 1,500 MG in DEXTROSE 5%-WATER 250 ML IV ONE (13:00)
--- NOTE | 2019-03-22 16:18 | PDOC PROGRESS REPORT ---
Subjective Progress Note for:: 03/22/19 Subjective:: No adverse events overnight. No new complaints. Vital signs been stable. He is not had any bleeding episodes. His coagulation studies have normalized after FFP and vitamin K. Reason For Visit: ACQUIRED COAGULOPATHY, METASTATIC PROSTATE CA, Physical Exam Vital Signs: Temp Pulse Resp BP Pulse Ox 99.4 F 72 16 116/62 100 03/22/19 15:20 03/22/19 15:20 03/22/19 15:20 03/22/19 15:20 03/22/19 15:20 Intake & Output 03/21/19 03/22/19 03/23/19 06:59 06:59 06:59 Intake Total 381.75 Balance 381.75 Weight 81.8 kg General appearance: PRESENT: no acute distress, cooperative, disheveled Respiratory exam: PRESENT: clear to auscultation vane, symmetrical, unlabored. ABSENT: accessory muscle use, chest wall tenderness, crackles, prolonged expiratory phas, rhonchi, tachypnea, wheezes Cardiovascular exam: PRESENT: RRR, +S1, +S2 Pulses: PRESENT: normal carotid pulses Vascular exam: PRESENT: normal capillary refill GI/Abdominal exam: PRESENT: normal bowel sounds, soft. ABSENT: diminished bowel sounds, guarding, rebound, tenderness Extremities exam: ABSENT: clubbing, pedal edema Musculoskeletal exam: PRESENT: normal inspection. ABSENT: deformity Neurological exam: PRESENT: alert, awake, oriented to person, oriented to place, oriented to situation, CN II-XII grossly intact. ABSENT: motor sensory deficit Psychiatric exam: PRESENT: appropriate affect, normal mood Skin exam: PRESENT: dry, skin tears - He had numerous ecchymoses on the upper extremities, primarily distal to the elbows, along with oozing skin tears that had nonstick bandages applied to them. He also had some pitting edema in his upper extremities distal to the elbows bilaterally, warm Results Laboratory Results: 03/22/19 05:05 03/22/19 05:05 03/22/19 03/22/19 05:05 05:05 WBC 4.0 RBC 2.18 L Hgb 7.1 L Hct 21.0 L MCV 96 MCH 32.6 MCHC 33.8 RDW 19.2 H Plt Count 195 Sodium 134.0 L Potassium 3.5 L Chloride 95 L Carbon Dioxide 25 Anion Gap 14 BUN 36 H Creatinine 4.95 H Est GFR ( Amer) 14 L Glucose 81 Calcium 6.8 L* Assessment and Plan - Diagnosis (1) Coagulopathy Is this a current diagnosis for this admission?: Yes Plan: Coagulation studies cleared after vitamin K and FFP, INR today was down to 1.15. PTT had improved down to 39.5 from greater than 159. If he was just vitamin K deficient, that would have fixed his PT/INR, but should not have affected his PTT, unless I am mistaken. This would suggest a clotting factor deficiency, but we will repeat his coagulation studies daily to see if they start to trend back up. A mixing study has been ordered. Hematology has been consulted. (2) Prostate cancer metastatic to bone Is this a current diagnosis for this admission?: Yes Plan: We will continue Xtandi (3) Anemia Qualifiers: Anemia type: due to chronic kidney disease Chronic kidney disease stage: on chronic dialysis Qualified Code(s): N18.6 - End stage renal disease; D63.1 - Anemia in chronic kidney disease; Z99.2 - Dependence on renal dialysis Is this a current diagnosis for this admission?: Yes Plan: He got 1 unit of packed red cells yesterday, but his hemoglobin is down to 7.1. If he continues to drop will probably transfuse him again. Were trying to avoid volume overloading him at this point because he cannot get dialysis until Sunday. (4) Multiple skin tears Is this a current diagnosis for this admission?: Yes Plan: Local wound care as needed (5) ESRD on hemodialysis Is this a current diagnosis for this admission?: Yes Plan: Nephrology has been consulted. He normally does dialysis on Tuesdays, , and Saturdays, and had his last treatment yesterday. They spoke with Dr. Kirkland while the patient was still in the ER, and they told me that Dr. Kirkland said the patient should be okay to wait until he gets dialysis on Sunday as long as we do not fluid overload him. - Time Time Spent with patient: 15-24 minutes
[2019-03-22] MEDS ORDERED: (PENDING PHARMACY ID) (Enzalutamide [Xtandi] 160 MG) PO SCH (22:00)
[2019-03-23 05:59] LABS: HEMATOCRIT 20.4 % (37.9-51.0); MEAN CORPUSCULAR HGB CONC 34.1 g/dL (32.0-36.0); MEAN CORPUSCULAR VOLUME 97 fl (80-97); PLATELET COUNT 208 10^3/uL (150-450); RED BLOOD COUNT 2.11 10^6/uL (4.35-5.55); RED CELL DISTRIBUTION WIDTH 18.5 % (11.5-14.0); WHITE BLOOD COUNT 3.7 10^3/uL (4.0-10.5)
[2019-03-23 06:07] LABS: INTERNATIONAL RATION (INR) 1.06; PROTHROMBIN TIME 13.9 SEC (11.4-15.4)
[2019-03-23 06:08] LABS: PARTIAL THROMBOPLASTIN TIME 28.6 SEC (23.5-35.8)
[2019-03-23 06:31] LABS: ANION GAP 14 (5-19); BLOOD UREA NITROGEN 43 mg/dL (7-20); CALCIUM 7.3 mg/dL (8.4-10.2); CARBON DIOXIDE 23 mmol/L (22-30); CHLORIDE 95 mmol/L (98-107); GLUCOSE 74 mg/dL (75-110); POTASSIUM 3.8 mmol/L (3.6-5.0)
[2019-03-23] MEDS: OXYCODONE-ACETAMINOPHEN 5-325 MG TABLET PO PRN ×2 (07:33→17:00)
[2019-03-23] MEDS: SEVELAMER HCL 800 MG TABLET PO SCH ×3 (07:33→16:57)
[2019-03-23] MEDS: OXYCODONE HCL IR 5 MG TABLET PO PRN ×2 (07:34→17:00)
[2019-03-23] MEDS: PANTOPRAZOLE SODIUM 40 MG TABLET.DR PO SCH (09:25)
[2019-03-23] MEDS: FENOFIBRATE NANOCRYSTALLIZED 145 MG TABLET PO SCH (09:25)
[2019-03-23] MEDS: MEGESTROL ACETATE SUSP 400 MG/10 ML UDCUP PO SCH (09:25)
[2019-03-23] MEDS ORDERED: (PENDING PHARMACY ID) (Fenofibrate [Fenofibrate] 145 MG) PO SCH (10:00)
[2019-03-23] MEDS ORDERED: (PENDING PHARMACY ID) (Megestrol Acetate [Megestrol Acetate] 10 ML) PO SCH (10:00)
--- NOTE | 2019-03-23 13:29 | PDOC PROGRESS REPORT ---
Subjective Progress Note for:: 03/23/19 Subjective:: No adverse events overnight. No new complaints. Vital signs been stable. He said he feels pretty good overall. No fevers. No cough or shortness of breath. No bleeding. Reason For Visit: ACQUIRED COAGULOPATHY, METASTATIC PROSTATE CA, Physical Exam Vital Signs: Temp Pulse Resp BP Pulse Ox 98.7 F 71 16 113/45 L 99 03/23/19 11:44 03/23/19 11:44 03/23/19 11:44 03/23/19 11:44 03/23/19 11:44 Intake & Output 03/22/19 03/23/19 03/24/19 06:59 06:59 06:59 Intake Total 381.75 1080 Balance 381.75 1080 Weight 81.8 kg 82.9 kg General appearance: PRESENT: no acute distress, cooperative, disheveled Respiratory exam: PRESENT: clear to auscultation vane, symmetrical, unlabored. ABSENT: accessory muscle use, chest wall tenderness, crackles, prolonged expiratory phas, rhonchi, tachypnea, wheezes Cardiovascular exam: PRESENT: RRR, +S1, +S2 Pulses: PRESENT: normal carotid pulses Vascular exam: PRESENT: normal capillary refill GI/Abdominal exam: PRESENT: normal bowel sounds, soft. ABSENT: diminished bowel sounds, guarding, rebound, tenderness Extremities exam: ABSENT: clubbing, pedal edema Musculoskeletal exam: PRESENT: normal inspection. ABSENT: deformity Neurological exam: PRESENT: alert, awake, oriented to person, oriented to place, oriented to situation, CN II-XII grossly intact. ABSENT: motor sensory deficit Psychiatric exam: PRESENT: appropriate affect, normal mood Skin exam: PRESENT: dry, skin tears - He had numerous ecchymoses on the upper extremities, primarily distal to the elbows, along with oozing skin tears that had nonstick bandages applied to them. He also had some pitting edema in his upper extremities distal to the elbows bilaterally, warm Results Laboratory Results: 03/23/19 05:24 03/23/19 05:24 03/23/19 03/23/19 05:24 05:24 WBC 3.7 L RBC 2.11 L Hgb 7.0 L Hct 20.4 L MCV 97 MCH 33.0 MCHC 34.1 RDW 18.5 H Plt Count 208 Sodium 131.7 L Potassium 3.8 Chloride 95 L Carbon Dioxide 23 Anion Gap 14 BUN 43 H Creatinine 6.20 H Est GFR ( Amer) 11 L Glucose 74 L Calcium 7.3 L Assessment and Plan - Diagnosis (1) Coagulopathy Is this a current diagnosis for this admission?: Yes Plan: Coagulation studies cleared after vitamin K and FFP, INR is down from 11.5. PTT had improved from greater than 159. If he was just vitamin K deficient, that would have fixed his PT/INR, but should not have affected his PTT, unless I am mistaken. This would suggest a clotting factor deficiency, but we will follow his coagulation studies daily to see if they start to trend back up. A mixing study has been ordered. Hematology has been consulted. (2) Prostate cancer metastatic to bone Is this a current diagnosis for this admission?: Yes Plan: We will continue Xtandi (3) Anemia Qualifiers: Anemia type: due to chronic kidney disease Chronic kidney disease stage: on chronic dialysis Qualified Code(s): N18.6 - End stage renal disease; D63.1 - Anemia in chronic kidney disease; Z99.2 - Dependence on renal dialysis Is this a current diagnosis for this admission?: Yes Plan: Hemoglobin stable at 7. Were trying to avoid volume overloading him at this point because he cannot get dialysis until Sunday. He should probably get another unit of packed red blood cells when he has dialysis tomorrow. (4) Multiple skin tears Is this a current diagnosis for this admission?: Yes Plan: Local wound care as needed (5) ESRD on hemodialysis Is this a current diagnosis for this admission?: Yes Plan: Nephrology has been consulted. He normally does dialysis on Tuesdays, , and Saturdays, and had his last treatment yesterday. They spoke with Dr. Kirkland while the patient was still in the ER, and they told me that Dr. Kirkland said the patient should be okay to wait until he gets dialysis on Sunday as long as we do not fluid overload him. - Time Time Spent with patient: 15-24 minutes
[2019-03-24] MEDS: OXYCODONE-ACETAMINOPHEN 5-325 MG TABLET PO PRN ×3 (01:46→20:26)
[2019-03-24] MEDS: OXYCODONE HCL IR 5 MG TABLET PO PRN ×3 (01:48→20:25)
[2019-03-24] MEDS ORDERED: EPOETIN ALFA-EPBX 20,000 UNIT in SYRINGE, DISPOSABLE, 1 EACH IV PRN (05:00)
[2019-03-24] MEDS ORDERED: NORMAL SALINE 1000 ML 1,000 ML IV PRN (05:00)
[2019-03-24 05:12] LABS: ABSOLUTE EOSINOPHILS # (AUTO) 0.1 10^3/uL (0.0-0.6); ABSOLUTE LYMPHOCYTES (AUTO) 1.2 10^3/uL (0.5-4.7); ABSOLUTE MONOCYTES (AUTO) 0.3 10^3/uL (0.1-1.4); ABSOLUTE NEUT (AUTO) 1.8 10^3/uL (1.7-8.2); BASOPHILS % (AUTO) 1.2 % (0-2); EOSINOPHILS % (AUTO) 2.9 % (0-6); HEMATOCRIT 19.1 % (37.9-51.0); LYMPHOCYTES % (AUTO) 35.5 % (13-45); MEAN CORPUSCULAR HEMOGLOBIN 33.7 pg (27.0-33.4); MEAN CORPUSCULAR HGB CONC 34.9 g/dL (32.0-36.0); MEAN CORPUSCULAR VOLUME 96 fl (80-97); MONOCYTES % (AUTO) 7.9 % (3-13); PLATELET COUNT 207 10^3/uL (150-450); RED BLOOD COUNT 1.98 10^6/uL (4.35-5.55); RED CELL DISTRIBUTION WIDTH 18.7 % (11.5-14.0); SEGMENTED NEUTROPHILS % (AUTO) 52.5 % (42-78); TOTAL CELLS COUNTED % (AUTO) 100 %; WHITE BLOOD COUNT 3.3 10^3/uL (4.0-10.5)
[2019-03-24 05:20] LABS: INTERNATIONAL RATION (INR) 1.03; PROTHROMBIN TIME 13.6 SEC (11.4-15.4)
[2019-03-24 05:21] LABS: PARTIAL THROMBOPLASTIN TIME 31.1 SEC (23.5-35.8)
[2019-03-24 05:33] LABS: ANION GAP 15 (5-19); BLOOD UREA NITROGEN 48 mg/dL (7-20); CALCIUM 7.2 mg/dL (8.4-10.2); CARBON DIOXIDE 22 mmol/L (22-30); CHLORIDE 95 mmol/L (98-107); GLUCOSE 75 mg/dL (75-110); POTASSIUM 3.9 mmol/L (3.6-5.0)
[2019-03-24] MEDS ORDERED: ONDANSETRON HCL INJ/PF 4 MG/2 ML SDV IV ONE (05:45)
[2019-03-24 05:57] LABS: HEMOGLOBIN 6.7 g/dL (13.5-17.0)
--- NOTE | 2019-03-24 07:36 | PDOC PROGRESS REPORT ---
Subjective Progress Note for:: 03/24/19 Subjective:: No acute events overnight, no further bleeding Reason For Visit: ACQUIRED COAGULOPATHY, METASTATIC PROSTATE CA, Physical Exam Vital Signs: Temp Pulse Resp BP Pulse Ox 98.2 F 69 16 127/56 H 98 03/24/19 03:12 03/24/19 03:12 03/24/19 03:12 03/24/19 03:12 03/24/19 03:12 Intake & Output 03/23/19 03/24/19 03/25/19 06:59 06:59 06:59 Intake Total 1080 620 Balance 1080 620 Weight 82.9 kg 85.1 kg General appearance: PRESENT: no acute distress, well-developed, well-nourished Head exam: PRESENT: atraumatic, normocephalic Eye exam: PRESENT: conjunctiva pink, EOMI, PERRLA. ABSENT: scleral icterus Ear exam: PRESENT: normal external ear exam Mouth exam: PRESENT: moist, tongue midline Neck exam: ABSENT: carotid bruit, JVD, lymphadenopathy, thyromegaly Respiratory exam: PRESENT: clear to auscultation vane. ABSENT: rales, rhonchi, wheezes Cardiovascular exam: PRESENT: RRR. ABSENT: diastolic murmur, rubs, systolic murmur Pulses: PRESENT: normal dorsalis pedis pul Vascular exam: PRESENT: normal capillary refill GI/Abdominal exam: PRESENT: normal bowel sounds, soft. ABSENT: distended, guarding, mass, organolmegaly, rebound, tenderness Rectal exam: PRESENT: deferred Extremities exam: PRESENT: full ROM. ABSENT: calf tenderness, clubbing, pedal edema Neurological exam: PRESENT: alert, awake, oriented to person, oriented to place, oriented to time, oriented to situation, CN II-XII grossly intact. ABSENT: motor sensory deficit Psychiatric exam: PRESENT: appropriate affect, normal mood. ABSENT: homicidal ideation, suicidal ideation Skin exam: PRESENT: dry, intact, warm. ABSENT: cyanosis, rash Results Laboratory Results: 03/24/19 04:56 03/24/19 04:56 03/24/19 03/24/19 04:56 04:56 WBC 3.3 L RBC 1.98 L Hgb 6.7 L Hct 19.1 L MCV 96 MCH 33.7 H MCHC 34.9 RDW 18.7 H Plt Count 207 Seg Neutrophils % 52.5 Sodium 131.5 L Potassium 3.9 Chloride 95 L Carbon Dioxide 22 Anion Gap 15 BUN 48 H Creatinine 7.40 H Est GFR ( Amer) 9 L Glucose 75 Calcium 7.2 L Assessment & Plan - Diagnosis (1) Coagulopathy Is this a current diagnosis for this admission?: Yes Plan: Seems improved, thus far factor studies seem normal. Unlikely to be inhibitor. Bleeding is discontinued. (2) Anemia Qualifiers: Anemia type: due to chronic kidney disease Chronic kidney disease stage: on chronic dialysis Qualified Code(s): N18.6 - End stage renal disease; D63.1 - Anemia in chronic kidney disease; Z99.2 - Dependence on renal dialysis Is this a current diagnosis for this admission?: Yes Plan: Multifactorial, continue Procrit shots as an outpatient, hemoglobin is fallen to 6.7 and it would be reasonable to give him 1 unit of packed red blood cell. - Time Time Spent with patient: 35 or more minutes Disposition: We will follow peripherally, please call with questions
[2019-03-24] MEDS ORDERED: NORMAL SALINE 250 ML IV PRN ×2 (09:09)
--- NOTE | 2019-03-24 09:48 | PDOC PROGRESS REPORT ---
Subjective Progress Note for:: 03/24/19 Subjective:: 69 year old male with a history of metastatic prostate cancer on chemotherapy who also has end-stage renal disease on dialysis who presents with bleeding skin tears. He said he is never had any history of any, bleeding problem at all and does not take anticoagulants. He had some tears on his skin that were bleeding and so he came to the ER yesterday and they bandaged him up and he went home. He went back to the wound clinic today for a follow-up visit and they saw his skin tears were still bleeding and so they sent him back to the ER. Some labs were checked in the ER and it was noted that he had an extraordinarily high INR, especially considering he had no prior history of any liver disease, no history of any coagulopathy, and no history of anticoagulant use. He is being admitted for further evaluation and management. 03/24/2019-patient is in the dialysis unit able to receive dialysis. No acute events noticed in the last 24 hours. Patient is going to receive 2 units of PRBC today. Patient is also going to receive vancomycin IV because the cultures coming back positive for gram-positive cocci in clusters. Reason For Visit: ACQUIRED COAGULOPATHY, METASTATIC PROSTATE CA, Physical Exam Vital Signs: Temp Pulse Resp BP Pulse Ox 98.5 F 71 16 111/53 L 99 03/24/19 07:02 03/24/19 07:02 03/24/19 07:02 03/24/19 07:02 03/24/19 07:02 Intake & Output 03/23/19 03/24/19 03/25/19 06:59 06:59 06:59 Intake Total 1080 620 300 Balance 1080 620 300 Weight 82.9 kg 85.1 kg General appearance: PRESENT: no acute distress, cooperative Head exam: PRESENT: atraumatic Eye exam: PRESENT: PERRLA Teeth exam: PRESENT: poor dentation Neck exam: ABSENT: carotid bruit, JVD, lymphadenopathy, thyromegaly Respiratory exam: PRESENT: decreased breath sounds Cardiovascular exam: PRESENT: RRR. ABSENT: diastolic murmur, rubs, systolic murmur GI/Abdominal exam: PRESENT: normal bowel sounds, soft. ABSENT: distended, guarding, mass, organolmegaly, rebound, tenderness Rectal exam: PRESENT: deferred Extremities exam: PRESENT: other - Can have AV fistula on the left upper arm functioning well with a good thrill. Neurological exam: PRESENT: alert, awake, oriented to person, oriented to place, oriented to time, oriented to situation, CN II-XII grossly intact. ABSENT: motor sensory deficit Psychiatric exam: PRESENT: appropriate affect, normal mood. ABSENT: homicidal ideation, suicidal ideation Results Laboratory Results: 03/24/19 04:56 03/24/19 04:56 03/21/19 03/24/19 03/24/19 11:25 04:56 04:56 WBC 3.3 L RBC 1.98 L Hgb 6.7 L Hct 19.1 L MCV 96 MCH 33.7 H MCHC 34.9 RDW 18.7 H Plt Count 207 Seg Neutrophils % 52.5 Sodium 131.5 L Potassium 3.9 Chloride 95 L Carbon Dioxide 22 Anion Gap 15 BUN 48 H Creatinine 7.40 H Est GFR ( Amer) 9 L Glucose 75 Calcium 7.2 L Blood Type A NEGATIVE Antibody Screen NEGATIVE Assessment and Plan - Diagnosis (1) Active bleeding Is this a current diagnosis for this admission?: Yes Plan: 03/24/2019-patient came in with active bleeding, with elevated APTT and INR after receiving blood transfusions and FFP's INR is improved to 1.3 APTT is 31.1. Oncology on board the work-up is negative so far. 8 reports are pending. Patient is going to receive 2 units of PRBC today during dialysis. Comfortably in the chair communicating well. Again active bleeding is resolved. (2) Anemia Qualifiers: Anemia type: due to chronic kidney disease Chronic kidney disease stage: on chronic dialysis Qualified Code(s): N18.6 - End stage renal disease; D63.1 - Anemia in chronic kidney disease; Z99.2 - Dependence on renal dialysis Is this a current diagnosis for this admission?: Yes Plan: Hemoglobin stable at 7. Were trying to avoid volume overloading him at this point because he cannot get dialysis until Sunday. He should probably get another unit of packed red blood cells when he has dialysis tomorrow. 03/24/2019-patient's latest hemoglobin is 6.7 plan is to give 2 units of PRBC today. Oncology on board. Chronic anemia most likely secondary to prostate cancer with mets to the bone and end-stage renal failure. (3) Prostate cancer metastatic to bone Is this a current diagnosis for this admission?: No Plan: We will continue Xtandi 03/24/2019 patient has history of prostate cancer with metastasis to the bone. Oncology on board plan is to continue Xtandi. (4) ESRD on hemodialysis Is this a current diagnosis for this admission?: Yes Plan: Nephrology has been consulted. He normally does dialysis on Tuesdays, , and Saturdays, and had his last treatment yesterday. They spoke with Dr. Kirkland while the patient was still in the ER, and they told me that Dr. Kirkland said the patient should be okay to wait until he gets dialysis on Sunday as long as we do not fluid overload him. 03/24/2019-patient has history of end-stage renal disease on hemodialysis he is receiving dialysis today. (5) HTN (hypertension) Is this a current diagnosis for this admission?: No Plan: 03/24/2019-patient blood pressure today is (6) SIRS (systemic inflammatory response syndrome) Is this a current diagnosis for this admission?: Yes Plan: 03/24/2019-patient's blood cultures positive for gram-positive cocci in clusters presently on IV vancomycin afebrile not tachycardic not tachypneic.
[2019-03-24] MEDS: SEVELAMER HCL 800 MG TABLET PO SCH ×3 (12:19→17:42)
[2019-03-24] MEDS: PANTOPRAZOLE SODIUM 40 MG TABLET.DR PO SCH (12:22)
[2019-03-24] MEDS: AMLODIPINE BESYLATE 10 MG TABLET PO SCH (12:22)
[2019-03-24] MEDS: FENOFIBRATE NANOCRYSTALLIZED 145 MG TABLET PO SCH (12:23)
[2019-03-24] MEDS: MEGESTROL ACETATE SUSP 400 MG/10 ML UDCUP PO SCH (12:23)
[2019-03-24] MEDS: VANCOMYCIN HCL 750 MG in DEXTROSE 5%-WATER 250 ML IV SCH (18:23)
--- NOTE | 2019-03-24 18:56 | PDOC CONSULTATION ---
Consultation Consult Date: 03/24/19 Provider Consulted: NICKI LAWRENCE Consult reason:: I was asked to see the patient to supervise dialysis while admitted here. History of Present Illness Admission Date/PCP: 03/21/19 16:26 LUIS CHAUDHARY History of Present Illness: FRIEDA [place] is a 69 year old gentleman known to me with history of end-stage renal disease on maintenance hemodialysis, metastatic prostate cancer status post chemotherapy and immunotherapy and currently on radiation therapy ansari pervised by his oncologist in [place], and hypertension who was admitted last Sunday because of active bleeding over his skin tears and AV fistula and evidence of coagulopathy. Patient went to the emergency room last because of bleeding skin tears but after putting dressings over his skin he was discharged home. On Sunday he came to the wound clinic and was noted to be still bleeding over the skin tear so he was sent to the emergency room again. Further work-up in the emergency room revealed elevated PT PTT and INR of 11.5. His hemoglobin was also 7.8. Patient was given FFP. Procedures Tech, Dr. Luo also saw the patient in consultation last Sunday. Work-up is underway. I am seeing the patient today during dialysis treatment. Patient is currently receiving 1 unit of packed RBC during dialysis. His hemoglobin has gone down from 7.8-6.7 today. A total of 2 units packed RBC was ordered for today. Patient otherwise tolerating dialysis and has really no complaints. He does admit to feeling weak. He denies any shortness of breath, chest pains but had little slight nausea early this morning without any vomiting. He is eating. Patient denied taking aspirin. He has not been on any blood thinners. His blood cultures came out to be positive for MRSA. Vancomycin was ordered. Past Medical History Cardiac Medical History: Reports: Hypertension-primary Renal/ Medical History: Reports: Benign Prostatic Hyperplasia - enlarged but surgery and ok now, End Stage Renal Disease Malignancy Medical History: Reports: Other - Prostate cancer diagnosed 2017. Deepika 4+4=8 GI Medical History: Reports: Gastroesophageal Reflux Disease Hematology Medical History: Reports Anemia of Chronic Kidney Disease Past Surgical History Past Surgical History: Reports: Dialysis Access Surgery AVF - 2016., Other - Ulcer surgery 1984 Social History Information Source: Patient Lives with: Spouse/Significant other Smoking Status: Never Smoker Cigarettes Packs Per Day: 1 Electronic Cigarette use?: No Number of Years Smokin Last Time Smoked: ![id number] Frequency of Alcohol Use: None Hx Recreational Drug Use: No Drugs: None Hx Prescription Drug Abuse: No Family History Family History: Negative for history of kidney disease. Parental Family History Reviewed: Yes Children Family History Reviewed: Yes Sibling(s) Family History Reviewed.: Yes Medication/Allergy Home Medications: Epoetin Gerber [Procrit Inj 40,000 Unit/1 ml Vial (Oncology)] 40,000 unit SUBCUT .QWEEKLY 05/17/16 Amlodipine Besylate [Norvasc 10 mg Tablet] 10 mg PO DAILY 02/25/19 Enzalutamide [Xtandi] 160 mg PO Q12 MDD 8 tabs 02/25/19 Fenofibrate 145 mg PO DAILY 02/25/19 Oxycodone HCl/Acetaminophen [Oxycodon-Acetaminophen 7.5-325] 1 tab PO Q8HP PRN 02/25/19 Pantoprazole Sodium [Protonix [address] Tablet] 40 mg PO DAILY 02/25/19 Prochlorperazine Maleate [Compazine 10 mg Tablet] 10 mg PO Q8HP PRN 02/25/19 Sevelamer Carbonate [Renvela] 2,400 mg PO MEALS 02/25/19 Ergocalciferol (Vitamin D2) [Vitamin D2] 50,000 unit PO .[id number] 03/21/19 Megestrol Acetate 10 ml PO DAILY 03/21/19 Ondansetron HCl 4 mg PO BIDP PRN 03/21/19 Promethazine HCl [Phenergan 25 mg Tablet] 25 mg PO Q8HP PRN 03/21/19 Sevelamer Carbonate 800 mg PO .SNACKS 03/21/19 Allergies/Adverse Reactions: No Known Allergies Allergy (Verified 12/26/18 09:41) Review of Systems All systems: reviewed and no additional remarkable complaints except as stated Review of Systems: Constitutional: ABSENT: chills, fever(s), headache(s), weight gain, weight loss; admits generalized weakness and fatigue Eyes: ABSENT: visual disturbances Ears: ABSENT: hearing changes Cardiovascular: ABSENT: chest pain, dyspnea on exertion, orthropnea, palpitations; he has bilateral upper extremity edema but not much lower extrem ity edema Respiratory: ABSENT: cough, dyspnea, hemoptysis Gastrointestinal: ABSENT: abdominal pain, constipation, diarrhea, hematemesis, hematochezia, vomiting; reports slight nausea Genitourinary: ABSENT: dysuria, hematuria Musculoskeletal: ABSENT: joint swelling Integumentary: ABSENT: rash, wounds; has multiple bleeding skin tears and some bleeding from AV fistula Neurological: ABSENT: abnormal gait, abnormal speech, confusion, dizziness, focal weakness, numbness, syncope Psychiatric: ABSENT: anxiety, depression Endocrine: ABSENT: cold intolerance, heat intolerance, polydipsia, polyuria Hematologic/Lymphatic: ABSENT: Easy bruising, lymphadenopathy; reports easy bleeding from skin tears as above Physical Exam Vital Signs: Temp Pulse Resp BP Pulse Ox 97.5 F 75 16 104/50 L 95 03/24/19 11:03 03/24/19 11:03 03/24/19 11:03 03/24/19 11:03 03/24/19 11:03 Intake & Output 03/23/19 03/24/19 03/25/19 06:59 06:59 06:59 Intake Total 1080 620 300 Balance 1080 620 300 Weight 82.9 kg 85.1 kg Vitals during dialysis: Blood pressure of 119/50, pulse rate of 64, blood flow rate of 400 mL/min and dialysate flow rate of 800 mL/min. Exam: General appearance: No acute distress, cooperative, well-developed, well- nourished Head exam: PRESENT: atraumatic, normocephalic Eye exam: PRESENT: Conjunctiva pale, EOMI, PERRLA. ABSENT: conjunctival injection, scleral icterus Mouth exam: PRESENT: moist, neck supple, tongue midline Neck exam: PRESENT: full ROM. ABSENT: carotid bruit, JVD, lymphadenopathy, thyromegaly Respiratory exam: PRESENT: clear to auscultation bilaterally. ABSENT: rales, rhonchi, stridor, wheezes Cardiovascular exam: PRESENT: RRR, +S1, +S2. ABSENT: systolic murmur Pulses: PRESENT: normal radial pulses, normal dorsalis pedis pulses GI/Abdominal exam: PRESENT: normal bowel sounds, soft. ABSENT: guarding, mass, tenderness Rectal exam: Deferred Extremities exam: PRESENT: full ROM. Bilateral upper extremity swelling reportedly improving from previous and not much lower extremity edema except for his feet bilaterally ABSENT: calf tenderness Musculoskeletal: PRESENT: full ROM. ABSENT: deformity Neurological exam: PRESENT: alert, Awake, Oriented to person, Oriented to place, Oriented to time, reflexes normal, CN II-XII grossly intact. ABSENT: motor sensory deficit Psychiatric exam: PRESENT: appropriate affect, normal mood. ABSENT: homicidal ideation, suicidal ideation Skin exam: PRESENT: intact, dry, warm. Multiple skin tears in his upper extremities but currently not actively bleeding. ABSENT: rash Results Laboratory Results: 03/24/19 04:56 03/24/19 04:56 03/21/19 03/24/19 03/24/19 11:25 04:56 04:56 WBC 3.3 L RBC 1.98 L Hgb 6.7 L Hct 19.1 L MCV 96 MCH 33.7 H MCHC 34.9 RDW 18.7 H Plt Count 207 Seg Neutrophils % 52.5 Sodium 131.5 L Potassium 3.9 Chloride 95 L Carbon Dioxide 22 Anion Gap 15 BUN 48 H Creatinine 7.40 H Est GFR ( Amer) 9 L Glucose 75 Calcium 7.2 L Blood Type A NEGATIVE Antibody Screen NEGATIVE Assessment & Plan - Diagnosis (1) Coagulopathy Is this a current diagnosis for this admission?: Yes Plan: Patient presented with elevated PT, PTT and INR. No history of intake of aspirin or any anticoagulants. Patient was given FFP initially. Procedures Tech, Dr. Luo saw the patient and is currently on work-up. Coagulation factors have been improved now. (2) ESRD on hemodialysis Is this a current diagnosis for this admission?: Yes Plan: We will do dialysis today for 3 hours, using the patient's AV fistula, with 2 potassium bath, blood flow rate of 400 mL per minute, dialysate flow rate of 800 mL per minute, ultrafiltration 3 to 4 L as tolerated to give allowance for the blood transfusion, no heparin and Procrit with 20,000 units during dialysis intravenously. I will give his Procrit through dialysis treatment during his admission which usually is being given by his warehouse trainer and asked as an outpatient. Patient will be monitored throughout dialysis treatment. We are also giving 1 unit of packed RBC during dialysis. (3) Multiple skin tears Is this a current diagnosis for this admission?: Yes (4) Anemia in chronic illness Is this a current diagnosis for this admission?: Yes Plan: This is multifactorial causes including chronic kidney disease and cancer therapy. Continue Retacrit during dialysis as per hematology recommendation. (5) SIRS (systemic inflammatory response syndrome) Is this a current diagnosis for this admission?: Yes Plan: He is positive for MRSA bacteremia. Vancomycin was started by the hospitalist service. (6) Prostate cancer metastatic to bone Is this a current diagnosis for this admission?: Yes Plan: Followed as an outpatient by his urologist from [place]. Status post chemoth erapy and immunotherapy. Currently receiving radiation therapy monthly, the last one received on 03/19/2019. (7) HTN (hypertension) Is this a current diagnosis for this admission?: Yes Plan: Well-controlled. - Notes Notes: Thank you very much for this consultation. We will supervise dialysis while the patient is here in the hospital. - Time Time Spent: 50 to 70 Minutes
[2019-03-24 21:19] LABS: ABSOLUTE EOSINOPHILS # (AUTO) 0.1 10^3/uL (0.0-0.6); ABSOLUTE MONOCYTES (AUTO) 0.3 10^3/uL (0.1-1.4); ABSOLUTE NEUT (AUTO) 1.9 10^3/uL (1.7-8.2); BASOPHILS % (AUTO) 0.8 % (0-2); EOSINOPHILS % (AUTO) 2.2 % (0-6); HEMATOCRIT 25.1 % (37.9-51.0); HEMOGLOBIN 8.7 g/dL (13.5-17.0); LYMPHOCYTES % (AUTO) 29.9 % (13-45); MEAN CORPUSCULAR HEMOGLOBIN 32.1 pg (27.0-33.4); MEAN CORPUSCULAR HGB CONC 34.7 g/dL (32.0-36.0); MEAN CORPUSCULAR VOLUME 93 fl (80-97); MONOCYTES % (AUTO) 9.2 % (3-13); PLATELET COUNT 210 10^3/uL (150-450); RED BLOOD COUNT 2.72 10^6/uL (4.35-5.55); RED CELL DISTRIBUTION WIDTH 19.2 % (11.5-14.0); SEGMENTED NEUTROPHILS % (AUTO) 57.9 % (42-78); TOTAL CELLS COUNTED % (AUTO) 100 %; WHITE BLOOD COUNT 3.3 10^3/uL (4.0-10.5)
[2019-03-25 05:48] LABS: ABSOLUTE EOSINOPHILS # (AUTO) 0.1 10^3/uL (0.0-0.6); ABSOLUTE MONOCYTES (AUTO) 0.3 10^3/uL (0.1-1.4); ABSOLUTE NEUT (AUTO) 1.9 10^3/uL (1.7-8.2); EOSINOPHILS % (AUTO) 2.6 % (0-6); HEMATOCRIT 26.8 % (37.9-51.0); HEMOGLOBIN 9.3 g/dL (13.5-17.0); LYMPHOCYTES % (AUTO) 29.9 % (13-45); MEAN CORPUSCULAR HEMOGLOBIN 32.6 pg (27.0-33.4); MEAN CORPUSCULAR HGB CONC 34.6 g/dL (32.0-36.0); MEAN CORPUSCULAR VOLUME 94 fl (80-97); MONOCYTES % (AUTO) 8.1 % (3-13); PLATELET COUNT 210 10^3/uL (150-450); RED BLOOD COUNT 2.84 10^6/uL (4.35-5.55); RED CELL DISTRIBUTION WIDTH 19.8 % (11.5-14.0); SEGMENTED NEUTROPHILS % (AUTO) 58.4 % (42-78); TOTAL CELLS COUNTED % (AUTO) 100 %; WHITE BLOOD COUNT 3.3 10^3/uL (4.0-10.5)
[2019-03-25] MEDS: OXYCODONE-ACETAMINOPHEN 5-325 MG TABLET PO PRN ×3 (05:59→22:54)
[2019-03-25] MEDS: OXYCODONE HCL IR 5 MG TABLET PO PRN ×3 (05:59→22:55)
[2019-03-25 06:04] LABS: ALBUMIN 2.4 g/dL (3.5-5.0); ALKALINE PHOSPHATASE 77 U/L (38-126); ANION GAP 12 (5-19); ASPARTATE AMINO TRANSFERASE 25 U/L (17-59); BILIRUBIN,DIRECT 0.6 mg/dL (0.0-0.4); BILIRUBIN,TOTAL 1.1 mg/dL (0.2-1.3); BLOOD UREA NITROGEN 29 mg/dL (7-20); CALCIUM 7.6 mg/dL (8.4-10.2); CARBON DIOXIDE 26 mmol/L (22-30); CHLORIDE 95 mmol/L (98-107); GLUCOSE 77 mg/dL (75-110); POTASSIUM 3.9 mmol/L (3.6-5.0); TOTAL PROTEIN 5.2 g/dL (6.3-8.2)
[2019-03-25] MEDS: FENOFIBRATE NANOCRYSTALLIZED 145 MG TABLET PO SCH (09:58)
[2019-03-25] MEDS: AMLODIPINE BESYLATE 10 MG TABLET PO SCH (09:58)
[2019-03-25] MEDS: PROMETHAZINE HCL 25 MG TABLET PO PRN (09:58)
[2019-03-25] MEDS: SEVELAMER HCL 800 MG TABLET PO SCH ×3 (09:58→17:41)
[2019-03-25] MEDS: PANTOPRAZOLE SODIUM 40 MG TABLET.DR PO SCH (09:59)
[2019-03-25] MEDS: MEGESTROL ACETATE SUSP 400 MG/10 ML UDCUP PO SCH (10:00)
--- NOTE | 2019-03-25 10:57 | PDOC PROGRESS REPORT ---
Subjective Progress Note for:: 03/25/19 Reason For Visit: ACQUIRED COAGULOPATHY, METASTATIC PROSTATE CA, 03/25/2019 Vasculopathy, end-stage renal disease Physical Exam Vital Signs: Temp Pulse Resp BP Pulse Ox 99.1 F 68 17 124/54 L 97 03/25/19 07:30 03/25/19 07:30 03/25/19 07:30 03/25/19 07:30 03/25/19 07:30 Intake & Output 03/24/19 03/25/19 03/26/19 06:59 06:59 06:59 Intake Total 620 1200 250 Output Total 3600 Balance 620 -2400 250 Weight 85.1 kg 83 kg General appearance: PRESENT: no acute distress Respiratory exam: PRESENT: clear to auscultation vane. ABSENT: rales, rhonchi, wheezes Cardiovascular exam: PRESENT: RRR. ABSENT: diastolic murmur, rubs, systolic murmur Neurological exam: PRESENT: alert, awake, oriented to person, oriented to place, oriented to time, oriented to situation, CN II-XII grossly intact. ABSENT: motor sensory deficit Psychiatric exam: PRESENT: appropriate affect, normal mood. ABSENT: homicidal ideation, suicidal ideation Results Laboratory Results: 03/25/19 05:16 03/25/19 05:16 03/24/19 03/24/19 03/24/19 12:35 20:31 21:10 WBC Cancelled 3.3 L RBC Cancelled 2.72 L Hgb Cancelled 8.7 L Hct Cancelled 25.1 L MCV Cancelled 93 MCH Cancelled 32.1 MCHC Cancelled 34.7 RDW Cancelled 19.2 H Plt Count Cancelled 210 Seg Neutrophils % Cancelled 57.9 Sodium Potassium Chloride Carbon Dioxide Anion Gap BUN Creatinine Est GFR ( Amer) Glucose Calcium Magnesium Total Bilirubin AST Alkaline Phosphatase Total Protein Albumin Blood Type A NEGATIVE Antibody Screen NEGATIVE 03/25/19 03/25/19 05:16 05:16 WBC 3.3 L RBC 2.84 L Hgb 9.3 L Hct 26.8 L MCV 94 MCH 32.6 MCHC 34.6 RDW 19.8 H Plt Count 210 Seg Neutrophils % 58.4 Sodium 133.3 L Potassium 3.9 Chloride 95 L Carbon Dioxide 26 Anion Gap 12 BUN 29 H Creatinine 5.98 H Est GFR ( Amer) 11 L Glucose 77 Calcium 7.6 L Magnesium 2.0 Total Bilirubin 1.1 AST 25 Alkaline Phosphatase 77 Total Protein 5.2 L Albumin 2.4 L Blood Type Antibody Screen 03/21/19 09:48 Blood Blood Culture - Final Mrsa (Meth Resis Staph Aureus) 03/21/19 13:07 Blood Blood Culture - Final Mrsa (Meth Resis Staph Aureus) Assessment and Plan - Diagnosis (1) Anemia in chronic illness Is this a current diagnosis for this admission?: Yes (2) Coagulopathy Is this a current diagnosis for this admission?: Yes (3) Multiple skin tears Is this a current diagnosis for this admission?: Yes (4) Prostate cancer metastatic to bone Is this a current diagnosis for this admission?: Yes (5) ESRD on hemodialysis Is this a current diagnosis for this admission?: Yes (6) HTN (hypertension) Is this a current diagnosis for this admission?: Yes - Plan Summary Summary: 03/25/2019 Temp 99.1 pulse 68, blood pressure 124/54 O2 sat 97% on room air Labs today are improved on admission his hemoglobin was 7.1 it went down to 6.7 he received blood products and is now 9.3. Platelets 210,000. Coags yesterday revealed PT of 13.6 INR of 1.03 and a PTT of 31.1. I will repeat these today as well BUN is improved slightly to 29 creatinine is up to 5.98. Patient is end-stage renal disease on dialysis Blood cultures are positive x2 for MRSA. Patient is currently on vancomycin, and appears to have had 2 doses Will repeat blood cultures tomorrow and try to get a OLE done in the next day or 2 - Time Time Spent with patient: 35 or more minutes
[2019-03-25 11:58] LABS: PROTHROMBIN TIME 13.2 SEC (11.4-15.4)
[2019-03-25 11:59] LABS: PARTIAL THROMBOPLASTIN TIME 32.5 SEC (23.5-35.8)
[2019-03-26] MEDS ORDERED: EPOETIN ALFA-EPBX 10,000 UNIT in SYRINGE, DISPOSABLE, 1 EACH IV PRN (05:00)
[2019-03-26] MEDS ORDERED: NORMAL SALINE 1000 ML 1,000 ML IV PRN (05:00)
[2019-03-26] MEDS: PROMETHAZINE HCL 25 MG TABLET PO PRN (05:08)
[2019-03-26 05:58] LABS: ABSOLUTE EOSINOPHILS # (AUTO) 0.1 10^3/uL (0.0-0.6); ABSOLUTE MONOCYTES (AUTO) 0.3 10^3/uL (0.1-1.4); EOSINOPHILS % (AUTO) 3.1 % (0-6); HEMATOCRIT 27.6 % (37.9-51.0); HEMOGLOBIN 9.6 g/dL (13.5-17.0); LYMPHOCYTES % (AUTO) 29.7 % (13-45); MEAN CORPUSCULAR HEMOGLOBIN 32.6 pg (27.0-33.4); MEAN CORPUSCULAR HGB CONC 34.6 g/dL (32.0-36.0); MEAN CORPUSCULAR VOLUME 94 fl (80-97); MONOCYTES % (AUTO) 8.1 % (3-13); PLATELET COUNT 216 10^3/uL (150-450); RED BLOOD COUNT 2.93 10^6/uL (4.35-5.55); RED CELL DISTRIBUTION WIDTH 20.2 % (11.5-14.0); SEGMENTED NEUTROPHILS % (AUTO) 58.1 % (42-78); TOTAL CELLS COUNTED % (AUTO) 100 %; WHITE BLOOD COUNT 3.4 10^3/uL (4.0-10.5)
[2019-03-26 06:05] LABS: ANION GAP 11 (5-19); BLOOD UREA NITROGEN 39 mg/dL (7-20); CALCIUM 7.7 mg/dL (8.4-10.2); CARBON DIOXIDE 25 mmol/L (22-30); CHLORIDE 97 mmol/L (98-107); GLUCOSE 80 mg/dL (75-110); POTASSIUM 4.1 mmol/L (3.6-5.0)
--- NOTE | 2019-03-26 10:30 | PDOC PROGRESS REPORT ---
Subjective Progress Note for:: 03/26/19 Subjective:: I am seeing the patient during dialysis treatment today. He states that he feels better. So far he has not been bleeding from his his skin tears or AV fistula. His hemoglobin has been stable. He receives antibiotics for MRSA with IV vancomycin. He is currently tolerating dialysis without any problem so far. Reason For Visit: ACQUIRED COAGULOPATHY, METASTATIC PROSTATE CA, Physical Exam Vital Signs: Temp Pulse Resp BP Pulse Ox 98.0 F 74 20 116/54 L 100 03/26/19 03:18 03/26/19 06:44 03/26/19 03:18 03/26/19 03:18 03/26/19 03:18 Intake & Output 03/25/19 03/26/19 03/27/19 06:59 06:59 06:59 Intake Total 1200 970 Output Total 3600 0 Balance -2400 970 Weight 83 kg 84.5 kg Vitals during dialysis: Blood pressure 108/49, heart rate of 71, blood flow rate of 450 mL/min and dialysate flow rate of 800 mL/min. Exam: General appearance: PRESENT: no acute distress, cooperative, well-developed, well-nourished Head exam: PRESENT: atraumatic, normocephalic Eye exam: PRESENT: conjunctiva pale, PERRLA. ABSENT: scleral icterus Neck exam: ABSENT: JVD Respiratory exam: PRESENT: Diminished breath sounds. ABSENT: crackles, rales, rhonchi, unlabored, wheezes Cardiovascular exam: PRESENT: Regular rate rhythm -+S1, +S2. ABSENT: diastolic murmur, systolic murmur GI/Abdominal exam: PRESENT: normal bowel sounds, soft. ABSENT: guarding, mass, tenderness Extremities exam: Improved bilateral upper arm edema, trace lower extremity edema Neurological exam: PRESENT: alert, awake, oriented to person, place and time. Skin exam: PRESENT: dry, warm, pallor has improved Results Laboratory Results: 03/26/19 05:02 03/26/19 05:02 03/26/19 03/26/19 05:02 05:02 WBC 3.4 L RBC 2.93 L Hgb 9.6 L Hct 27.6 L MCV 94 MCH 32.6 MCHC 34.6 RDW 20.2 H Plt Count 216 Seg Neutrophils % 58.1 Sodium 133.3 L Potassium 4.1 Chloride 97 L Carbon Dioxide 25 Anion Gap 11 BUN 39 H Creatinine 7.39 H Est GFR ( Amer) 9 L Glucose 80 Calcium 7.7 L 03/21/19 09:48 Blood Blood Culture - Final Mrsa (Meth Resis Staph Aureus) 03/21/19 13:07 Blood Blood Culture - Final Mrsa (Meth Resis Staph Aureus) Assessment & Plan - Diagnosis (1) Coagulopathy Is this a current diagnosis for this admission?: Yes Plan: Exact etiology still uncertain at this time. Hematology following. (2) ESRD on hemodialysis Is this a current diagnosis for this admission?: Yes Plan: We will do dialysis today for 3 hours, using the patient's left upper arm AV fistula, with 3 potassium bath, blood flow rate of 450 mL per minute, dialysate flow rate of 800 mL per minute, ultrafiltration 2 to 2.5 L as tolerated, no heparin and Procrit with 10,000 units during dialysis intravenously. Patient will be closely monitored throughout dialysis treatment today. (3) Multiple skin tears Is this a current diagnosis for this admission?: Yes Plan: No recurrence of bleeding at this time. (4) Anemia in chronic illness Is this a current diagnosis for this admission?: Yes Plan: Status post 2 units of blood transfusion, 03/24/2019. We will continue Retacrit entirety during dialysis per system archive analyst recommendation. (5) SIRS (systemic inflammatory response syndrome) Is this a current diagnosis for this admission?: Yes Plan: Positive MRSA bacteremia. Currently on vancomycin adjusted by pharmacy. (6) Prostate cancer metastatic to bone Is this a current diagnosis for this admission?: Yes Plan: Status post chemo and immunotherapy. On medication therapy monthly. (7) HTN (hypertension) Is this a current diagnosis for this admission?: Yes - Time Time with patient: 15-25 minutes
[2019-03-26] MEDS: SEVELAMER HCL 800 MG TABLET PO SCH ×3 (10:40→18:11)
[2019-03-26] MEDS: FENOFIBRATE NANOCRYSTALLIZED 145 MG TABLET PO SCH (12:25)
[2019-03-26] MEDS: OXYCODONE-ACETAMINOPHEN 5-325 MG TABLET PO PRN ×2 (12:25→20:35)
[2019-03-26] MEDS: MEGESTROL ACETATE SUSP 400 MG/10 ML UDCUP PO SCH (12:25)
[2019-03-26] MEDS: OXYCODONE HCL IR 5 MG TABLET PO PRN ×2 (12:25→20:36)
[2019-03-26] MEDS: AMLODIPINE BESYLATE 10 MG TABLET PO SCH (12:25)
[2019-03-26] MEDS: PANTOPRAZOLE SODIUM 40 MG TABLET.DR PO SCH (12:26)
[2019-03-26] MEDS: VANCOMYCIN HCL 750 MG in DEXTROSE 5%-WATER 250 ML IV SCH (18:12)
[2019-03-27] MEDS: OXYCODONE-ACETAMINOPHEN 5-325 MG TABLET PO PRN (04:39)
[2019-03-27] MEDS: OXYCODONE HCL IR 5 MG TABLET PO PRN ×2 (04:40→15:48)
--- NOTE | 2019-03-27 07:36 | PDOC PROGRESS REPORT ---
Subjective Progress Note for:: 03/26/19 Reason For Visit: ACQUIRED COAGULOPATHY, METASTATIC PROSTATE CA, 03/26/19 Patient seen for hypercoagulopathy, anemia, end-stage renal disease, prostate cancer with mets Physical Exam Vital Signs: Temp Pulse Resp BP Pulse Ox 98.3 F 75 16 129/63 H 100 03/27/19 03:42 03/27/19 03:42 03/27/19 03:42 03/27/19 03:42 03/27/19 03:42 Intake & Output 03/26/19 03/27/19 03/28/19 06:59 06:59 06:59 Intake Total 970 1230 Output Total 0 2300 Balance 970 -1070 Weight 84.5 kg 84.5 kg General appearance: PRESENT: no acute distress Respiratory exam: PRESENT: clear to auscultation vane. ABSENT: rales, rhonchi, wheezes Cardiovascular exam: PRESENT: RRR. ABSENT: diastolic murmur, rubs, systolic murmur Neurological exam: PRESENT: alert, awake, oriented to person, oriented to place, oriented to time, oriented to situation, CN II-XII grossly intact. ABSENT: motor sensory deficit Psychiatric exam: PRESENT: appropriate affect, normal mood. ABSENT: homicidal ideation, suicidal ideation Results Laboratory Results: 03/26/19 05:02 03/26/19 05:02 Assessment and Plan - Diagnosis (1) Anemia in chronic illness Is this a current diagnosis for this admission?: Yes (2) Coagulopathy Is this a current diagnosis for this admission?: Yes (3) Multiple skin tears Is this a current diagnosis for this admission?: Yes (4) Prostate cancer metastatic to bone Is this a current diagnosis for this admission?: Yes (5) ESRD on hemodialysis Is this a current diagnosis for this admission?: Yes (6) HTN (hypertension) Is this a current diagnosis for this admission?: Yes - Plan Summary Summary: 03/25/2019 Temp 99.1 pulse 68, blood pressure 124/54 O2 sat 97% on room air Labs today are improved on admission his hemoglobin was 7.1 it went down to 6.7 he received blood products and is now 9.3. Platelets 210,000. Coags yesterday revealed PT of 13.6 INR of 1.03 and a PTT of 31.1. I will repeat these today as well BUN is improved slightly to 29 creatinine is up to 5.98. Patient is end-stage renal disease on dialysis Blood cultures are positive x2 for MRSA. Patient is currently on vancomycin, and appears to have had 2 doses Will repeat blood cultures tomorrow and try to get a TTE done in the next day or 2 03/26/2019 Unfortunately will not be able to get a OLE while patient is in the hospital due to scheduling conflicts. Patient does not want to remain in the hospital until this can be done and would like to have this done as an outpatient. As long as patient is on IV antibiotics I see no problem with that Labs are stable Will DC patient on IV antibiotics when he is stable - Time Time Spent with patient: 15-24 minutes
[2019-03-27] MEDS: SEVELAMER HCL 800 MG TABLET PO SCH ×3 (08:47→17:12)
[2019-03-27] MEDS: FENOFIBRATE NANOCRYSTALLIZED 145 MG TABLET PO SCH (10:09)
[2019-03-27] MEDS: MEGESTROL ACETATE SUSP 400 MG/10 ML UDCUP PO SCH (10:09)
[2019-03-27] MEDS: PANTOPRAZOLE SODIUM 40 MG TABLET.DR PO SCH (10:09)
[2019-03-27] MEDS: AMLODIPINE BESYLATE 10 MG TABLET PO SCH (10:09)
[2019-03-27] MEDS: PROMETHAZINE HCL 25 MG TABLET PO PRN ×2 (10:11→22:48)
--- NOTE | 2019-03-27 11:09 | PDOC PROGRESS REPORT ---
Subjective Progress Note for:: 03/27/19 Reason For Visit: ACQUIRED COAGULOPATHY, METASTATIC PROSTATE CA, 03/27/2019 Anemia, hypercoagulopathy, end-stage renal disease, prostate cancer with mets Physical Exam Vital Signs: Temp Pulse Resp BP Pulse Ox 98.1 F 77 16 102/71 100 03/27/19 08:51 03/27/19 08:51 03/27/19 08:51 03/27/19 08:51 03/27/19 08:51 Intake & Output 03/26/19 03/27/19 03/28/19 06:59 06:59 06:59 Intake Total 970 1230 Output Total 0 2300 Balance 970 -1070 Weight 84.5 kg 84.5 kg General appearance: PRESENT: no acute distress, other - Patient is up and ambulating to the bathroom in no distress Respiratory exam: PRESENT: clear to auscultation vane. ABSENT: rales, rhonchi, wheezes Cardiovascular exam: PRESENT: RRR. ABSENT: diastolic murmur, rubs, systolic murmur Neurological exam: PRESENT: alert, awake, oriented to person, oriented to place, oriented to time, oriented to situation, CN II-XII grossly intact. ABSENT: motor sensory deficit Psychiatric exam: PRESENT: appropriate affect, normal mood. ABSENT: homicidal ideation, suicidal ideation Results Laboratory Results: 03/26/19 05:02 03/26/19 05:02 Assessment and Plan - Diagnosis (1) Anemia in chronic illness Is this a current diagnosis for this admission?: Yes (2) Coagulopathy Is this a current diagnosis for this admission?: Yes (3) Multiple skin tears Is this a current diagnosis for this admission?: Yes (4) Prostate cancer metastatic to bone Is this a current diagnosis for this admission?: Yes (5) ESRD on hemodialysis Is this a current diagnosis for this admission?: Yes (6) HTN (hypertension) Is this a current diagnosis for this admission?: Yes - Plan Summary Summary: 03/25/2019 Temp 99.1 pulse 68, blood pressure 124/54 O2 sat 97% on room air Labs today are improved on admission his hemoglobin was 7.1 it went down to 6.7 he received blood products and is now 9.3. Platelets 210,000. Coags yesterday revealed PT of 13.6 INR of 1.03 and a PTT of 31.1. I will repeat these today as well BUN is improved slightly to 29 creatinine is up to 5.98. Patient is end-stage renal disease on dialysis Blood cultures are positive x2 for MRSA. Patient is currently on vancomycin, and appears to have had 2 doses Will repeat blood cultures tomorrow and try to get a TTE done in the next day or 2 03/26/2019 Unfortunately will not be able to get a OLE while patient is in the hospital due to scheduling conflicts. Patient does not want to remain in the hospital until this can be done and would like to have this done as an outpatient. As long as patient is on IV antibiotics I see no problem with that Labs are stable Will DC patient on IV antibiotics when he is stable 03/27/2019 Vital signs are stable temperature 98.1, pulse 77, blood pressure 102/71, O2 sat 100% on room air CBC is stable, no active panel stable No functions are being followed by nephrology with dialysis Does have MRSA and blood cultures x2 and is getting vancomycin. Patient can continue this with his dialysis Will check a vancomycin trough tomorrow evening Anticipate discharge from the hospital this weekend I will discuss the possibility of echocardiogram with cardiology prior to discharge, suspicion is low for vegetation - Time Time Spent with patient: 25-34 minutes
--- NOTE | 2019-03-27 14:03 | PDOC CONSULTATION ---
Consultation Consult Date: 03/27/19 Attending physician:: SANA GA Provider Consulted: KARON MUIR JR Consult reason:: Bacteremia History of Present Illness Admission Date/PCP: 03/21/19 16:26 LUIS CHAUDHARY History of Present Illness: FRIEDA NJ is a 69 year old male with a past medical history of metastatic prostate cancer on chemotherapy, end-stage renal disease on hemodialysis, hypertension, gastroesophageal reflux disease came to the hospital because of bleeding from his tears on his skin was found to have a significantly elevated INR. While he was in the hospital blood cultures showed gram-positive cocci resulting in staph aureus.. He has no chest pain. No shortness of breath. No orthopnea. No PND. Methicillin-resistant staph aureus Past Medical History Cardiac Medical History: Reports: Hypertension Denies: Congestive Heart Failure, Coronary Artery Disease, Myocardial Infarction Pulmonary Medical History: Denies: Asthma, Bronchitis, Chronic Obstructive Pulmonary Disease (COPD), Pneumonia, Tuberculosis Neurological Medical History: Denies: Seizures Renal/ Medical History: Reports: End Stage Renal Disease Malignancy Medical History: Reports: Other - Prostate cancer diagnosed 2016. [place] 4+4=8 GI Medical History: Reports: Gastroesophageal Reflux Disease Denies: Cirrhosis, Hepatitis, Hiatal Hernia Musculoskeltal Medical History: Denies: Arthritis Psychiatric Medical History: Denies: Bipolar Disorder, Depression Hematology: Reports: Anemia, Bleeding Tendencies Denies: Sickle Cell Disease Past Surgical History Past Surgical History: Reports: Other - Ulcer surgery 1984 Denies: Pacemaker Social History Lives with: Spouse/Significant other Smoking Status: Never Smoker Cigarettes Packs Per Day: 1 Electronic Cigarette use?: No Number of Years Smokin Last Time Smoked: !995 Frequency of Alcohol Use: None Hx Recreational Drug Use: No Drugs: None Hx Prescription Drug Abuse: No Family History Family History: Reviewed & Not Pertinent Parental Family History Reviewed: Yes Children Family History Reviewed: Yes Sibling(s) Family History Reviewed.: Yes Medication/Allergy Home Medications: Epoetin Gerber [Procrit Inj 40,000 Unit/1 ml Vial (Oncology)] 40,000 unit SUBCUT .QWEEKLY 05/17/16 Amlodipine Besylate [Norvasc 10 mg Tablet] 10 mg PO DAILY 02/25/19 Enzalutamide [Xtandi] 160 mg PO Q12 MDD 8 tabs 02/25/19 Fenofibrate 145 mg PO DAILY 02/25/19 Oxycodone HCl/Acetaminophen [Oxycodon-Acetaminophen 7.5-325] 1 tab PO Q8HP PRN 02/25/19 Pantoprazole Sodium [Protonix [address] Tablet] 40 mg PO DAILY 02/25/19 Prochlorperazine Maleate [Compazine 10 mg Tablet] 10 mg PO Q8HP PRN 02/25/19 Sevelamer Carbonate [Renvela] 2,400 mg PO MEALS 02/25/19 Ergocalciferol (Vitamin D2) [Vitamin D2] 50,000 unit PO .[id number] 03/21/19 Megestrol Acetate 10 ml PO DAILY 03/21/19 Ondansetron HCl 4 mg PO BIDP PRN 03/21/19 Promethazine HCl [Phenergan 25 mg Tablet] 25 mg PO Q8HP PRN 03/21/19 Sevelamer Carbonate 800 mg PO .SNACKS 03/21/19 Allergies/Adverse Reactions: No Known Allergies Allergy (Verified 12/26/18 09:41) Physical Exam Vital Signs: Temp Pulse Resp BP Pulse Ox 98.1 F 77 16 102/71 100 03/27/19 08:51 03/27/19 08:51 03/27/19 08:51 03/27/19 08:51 03/27/19 08:51 Intake & Output 03/26/19 03/27/19 03/28/19 06:59 06:59 06:59 Intake Total 970 1230 Output Total 0 2300 Balance 970 -1070 Weight 84.5 kg 84.5 kg Cardiovascular exam: PRESENT: systolic murmur Results Laboratory Results: 03/26/19 05:02 03/26/19 05:02 Assessment & Plan - Diagnosis (1) Bacteremia Is this a current diagnosis for this admission?: Yes Plan: Methicillin-resistant staph aureus bacteremia. Has had only one set of blood cultures done on the . Repeat blood cultures. He will need a OLE but this can be done as an outpatient. I will have Dr. Montana schedule this as an outpatient. He will at least need 2 weeks of antibiotics because of the m ethicillin-resistant staph aureus bacteremia. If he still in the hospital on Sunday Dr. Montana will do the OLE.
[2019-03-27] MEDS: LIDOCAINE 5% (700 MG) TRANSDERMAL ADH..PATCH TP SCH (17:14)
[2019-03-28] MEDS: OXYCODONE-ACETAMINOPHEN 5-325 MG TABLET PO PRN ×2 (00:18→12:01)
[2019-03-28] MEDS: OXYCODONE HCL IR 5 MG TABLET PO PRN ×2 (00:18→12:01)
[2019-03-28] MEDS ORDERED: NORMAL SALINE 1000 ML 1,000 ML IV PRN (05:00)
[2019-03-28] MEDS ORDERED: EPOETIN ALFA-EPBX 10,000 UNIT in SYRINGE, DISPOSABLE, 1 EACH IV PRN (05:00)
[2019-03-28 05:16] LABS: ABSOLUTE EOSINOPHILS # (AUTO) 0.1 10^3/uL (0.0-0.6); ABSOLUTE LYMPHOCYTES (AUTO) 1.2 10^3/uL (0.5-4.7); ABSOLUTE MONOCYTES (AUTO) 0.3 10^3/uL (0.1-1.4); ABSOLUTE NEUT (AUTO) 1.7 10^3/uL (1.7-8.2); BASOPHILS % (AUTO) 1.2 % (0-2); EOSINOPHILS % (AUTO) 3.6 % (0-6); HEMATOCRIT 28.3 % (37.9-51.0); HEMOGLOBIN 9.7 g/dL (13.5-17.0); LYMPHOCYTES % (AUTO) 36.4 % (13-45); MEAN CORPUSCULAR HEMOGLOBIN 32.5 pg (27.0-33.4); MEAN CORPUSCULAR HGB CONC 34.1 g/dL (32.0-36.0); MEAN CORPUSCULAR VOLUME 95 fl (80-97); MONOCYTES % (AUTO) 9.7 % (3-13); PLATELET COUNT 229 10^3/uL (150-450); RED BLOOD COUNT 2.97 10^6/uL (4.35-5.55); RED CELL DISTRIBUTION WIDTH 20.6 % (11.5-14.0); SEGMENTED NEUTROPHILS % (AUTO) 49.1 % (42-78); TOTAL CELLS COUNTED % (AUTO) 100 %; WHITE BLOOD COUNT 3.4 10^3/uL (4.0-10.5)
[2019-03-28 05:38] LABS: ANION GAP 11 (5-19); BLOOD UREA NITROGEN 40 mg/dL (7-20); CALCIUM 7.7 mg/dL (8.4-10.2); CARBON DIOXIDE 26 mmol/L (22-30); CHLORIDE 98 mmol/L (98-107); GLUCOSE 81 mg/dL (75-110); POTASSIUM 5.3 mmol/L (3.6-5.0)
[2019-03-28 05:39] LABS: VANCOMYCIN,TROUGH 15.8 ug/mL (5.0-20.0)
[2019-03-28] MEDS: SEVELAMER HCL 800 MG TABLET PO SCH ×2 (08:45→12:00)
--- NOTE | 2019-03-28 09:33 | PDOC PROGRESS REPORT ---
Subjective Progress Note for:: 03/28/19 Subjective:: I am seeing the patient during dialysis this morning. He tells me that he is feeling better and has not had any bleeding from his skin tears nor his AV fistula. He is also eating good. Overall he does not have any new complaints. He is tolerating dialysis this morning. Cardiology was consulted and there was a recommendation to do a OLE. Reason For Visit: ACQUIRED COAGULOPATHY, METASTATIC PROSTATE CA, Physical Exam Vital Signs: Temp Pulse Resp BP Pulse Ox 98.3 F 71 16 120/58 L 100 03/28/19 07:28 03/28/19 07:28 03/28/19 07:28 03/28/19 07:28 03/28/19 07:28 Intake & Output 03/27/19 03/28/19 03/29/19 06:59 06:59 06:59 Intake Total 1230 540 Output Total 2300 Balance -1070 540 Weight 84.5 kg 85.6 kg Vitals during dialysis: Blood pressure 107/54, heart rate of 70, blood flow rate of 450 mL/min and dialysate flow rate of 800 mL/min. Exam: General appearance: PRESENT: no acute distress, cooperative, well-developed, well-nourished Head exam: PRESENT: atraumatic, normocephalic Eye exam: PRESENT: conjunctiva pale, PERRLA. ABSENT: scleral icterus Neck exam: ABSENT: JVD Respiratory exam: PRESENT: Diminished breath sounds. ABSENT: crackles, rales, rhonchi, unlabored, wheezes Cardiovascular exam: PRESENT: Regular rate rhythm -+S1, +S2. ABSENT: diastolic murmur, systolic murmur GI/Abdominal exam: PRESENT: normal bowel sounds, soft. ABSENT: guarding, mass, tenderness Extremities exam: Bilateral upper extremity edema with the left significantly more than the right, right upper extremity edema is actually much better; no edema on lower extremities Neurological exam: PRESENT: alert, awake, oriented to person, place and time. Skin exam: PRESENT: dry, warm, positive generalized pallor Results Laboratory Results: 03/28/19 05:05 03/28/19 05:05 03/28/19 03/28/19 05:05 05:05 WBC 3.4 L RBC 2.97 L Hgb 9.7 L Hct 28.3 L MCV 95 MCH 32.5 MCHC 34.1 RDW 20.6 H Plt Count 229 Seg Neutrophils % 49.1 Sodium 134.8 L Potassium 5.3 H Chloride 98 Carbon Dioxide 26 Anion Gap 11 BUN 40 H Creatinine 7.82 H Est GFR ( Amer) 8 L Glucose 81 Calcium 7.7 L Assessment & Plan - Diagnosis (1) ESRD on hemodialysis Is this a current diagnosis for this admission?: Yes Plan: We will do dialysis today for 3 hours, using the patient's AV fistula, with 2 potassium bath, blood flow rate of 450 mL per minute, dialysate flow rate of 800 mL per minute, ultrafiltration 2 to 3 L as tolerated, no heparin and Procrit with 10,000 units during dialysis intravenously. Patient will be monitored throughout dialysis treatment and adjust ultrafiltration as necessary. If patient is discharged after dialysis today or over the weekend, [facility] needs to be notified so that they can schedule the patient for outpatient dialysis on Sunday. However if the patient will be scheduled for an inpatient OLE on Sunday then he will be dialyzed here. (2) MRSA bacteremia Is this a current diagnosis for this admission?: Yes Plan: Patient on vancomycin. Vancomycin trough level is adequate at 15.8. I have informed Sanaz that we are going to continue vancomycin every treatment for the next 2 weeks once he is discharged. (3) SIRS (systemic inflammatory response syndrome) Is this a current diagnosis for this admission?: Yes Plan: Positive MRSA bacteremia. Currently on vancomycin adjusted by pharmacy. (4) Coagulopathy Is this a current diagnosis for this admission?: Yes (5) Anemia in chronic illness Is this a current diagnosis for this admission?: Yes Plan: Status post 2 units of blood transfusion, 03/24/2019. We will continue Retacrit during dialysis per diesel scoop operator recommendation. (6) Multiple skin tears Is this a current diagnosis for this admission?: Yes Plan: No recurrence of bleeding at this time. (7) Prostate cancer metastatic to bone Is this a current diagnosis for this admission?: Yes Plan: Status post chemo and immunotherapy. On radiation therapy monthly. (8) HTN (hypertension) Is this a current diagnosis for this admission?: Yes Plan: Controlled. - Notes Notes: Patient is stable for discharge from nephrology standpoint pending clearance from other physicians. - Time Time with patient: 15-25 minutes
[2019-03-28] MEDS ORDERED: ERGOCALCIFEROL (VITAMIN D2) 50000 UNIT (1.25 MG) CAPSULE PO SCH (10:00)
[2019-03-28] MEDS: AMLODIPINE BESYLATE 10 MG TABLET PO SCH (12:03)
[2019-03-28] MEDS: PANTOPRAZOLE SODIUM 40 MG TABLET.DR PO SCH (12:03)
[2019-03-28] MEDS: LIDOCAINE 5% (700 MG) TRANSDERMAL ADH..PATCH TP SCH (12:04)
[2019-03-28] MEDS: MEGESTROL ACETATE SUSP 400 MG/10 ML UDCUP PO SCH (12:05)
[2019-03-28] MEDS: FENOFIBRATE NANOCRYSTALLIZED 145 MG TABLET PO SCH (12:12)
[2019-03-28 12:35] VITALS: BP 114/52
[2019-03-28] MEDS ORDERED: VANCOMYCIN HCL 750 MG in DEXTROSE 5%-WATER 250 ML IV SCH (18:00)
--- NOTE | 2019-03-31 19:10 | PDOC DISCHARGE SUMMARY ---
Impression - Admit/DC Date/PCP Admission Date/Primary Care Provider: 03/21/19 16:26 LUIS CHAUDHARY Discharge Date: 03/28/19 - Discharge Diagnosis (1) Anemia in chronic illness Is this a current diagnosis for this admission?: Yes (2) Coagulopathy Is this a current diagnosis for this admission?: Yes (3) Multiple skin tears Is this a current diagnosis for this admission?: Yes (4) Prostate cancer metastatic to bone Is this a current diagnosis for this admission?: Yes (5) ESRD on hemodialysis Is this a current diagnosis for this admission?: Yes (6) HTN (hypertension) Is this a current diagnosis for this admission?: Yes - Assessment Summary: 03/25/2019 Temp 99.1 pulse 68, blood pressure 124/54 O2 sat 97% on room air Labs today are improved on admission his hemoglobin was 7.1 it went down to 6.7 he received blood products and is now 9.3. Platelets 210,000. Coags yesterday revealed PT of 13.6 INR of 1.03 and a PTT of 31.1. I will repeat these today as well BUN is improved slightly to 29 creatinine is up to 5.98. Patient is end-stage renal disease on dialysis Blood cultures are positive x2 for MRSA. Patient is currently on vancomycin, and appears to have had 2 doses Will repeat blood cultures tomorrow and try to get a TTE done in the next day or 2 03/26/2019 Unfortunately will not be able to get a OLE while patient is in the hospital due to scheduling conflicts. Patient does not want to remain in the hospital until this can be done and would like to have this done as an outpatient. As long as patient is on IV antibiotics I see no problem with that Labs are stable Will DC patient on IV antibiotics when he is stable 03/27/2019 Vital signs are stable temperature 98.1, pulse 77, blood pressure 102/71, O2 sat 100% on room air CBC is stable, no active panel stable No functions are being followed by nephrology with dialysis Does have MRSA and blood cultures x2 and is getting vancomycin. Patient can continue this with his dialysis Will check a vancomycin trough tomorrow evening Anticipate discharge from the hospital this weekend I will discuss the possibility of echocardiogram with cardiology prior to discharge, suspicion is low for vegetation 03/28/2019 Patient is medically stable for discharge she will get his outpatient echocardiogram done Sunday by Dr. Montana Continue to get his vancomycin through his hemo dialysis Patient is asking to be discharged home Patient has been seen by both cardiology and nephrology He was discharged home on his run to gallop 2400 mg with meals and at bedtime Patient is medically stable for discharge - Additional Information Resuscitation Status: Full Code Discharge Diet: Other (Comments) Discharge Activity: Balance Activity w/Rest Referrals: LUIS CHAUDHARY MD [Primary Care Provider] - 04/01/19 11:00 am Prescriptions: Sevelamer HCl [Renagel 800 mg Tablet] 2,400 mg PO MEALS 10 Days #90 tablet Home Medications: Epoetin Gerber [Procrit Inj 40,000 Unit/1 ml Vial (Oncology)] 40,000 unit SUBCUT .QWEEKLY 05/17/16 Amlodipine Besylate [Norvasc 10 mg Tablet] 10 mg PO DAILY 02/25/19 Enzalutamide [Xtandi] 160 mg PO Q12 MDD 8 tabs 02/25/19 Fenofibrate 145 mg PO DAILY 02/25/19 Oxycodone HCl/Acetaminophen [Oxycodon-Acetaminophen 7.5-325] 1 tab PO Q8HP PRN 02/25/19 Pantoprazole Sodium [Protonix [address] Tablet] 40 mg PO DAILY 02/25/19 Prochlorperazine Maleate [Compazine 10 mg Tablet] 10 mg PO Q8HP PRN 02/25/19 Ergocalciferol (Vitamin D2) [Vitamin D2] 50,000 unit PO .[id number] 03/21/19 Megestrol Acetate 10 ml PO DAILY 03/21/19 Ondansetron HCl 4 mg PO BIDP PRN 03/21/19 Promethazine HCl [Phenergan 25 mg Tablet] 25 mg PO Q8HP PRN 03/21/19 Sevelamer HCl [Renagel 800 mg Tablet] 2,400 mg PO MEALS 10 Days #90 tablet 03/28/19 Vancomycin HCl [Vancocin Inj 1000 mg Vial] 750 mg IV PDIA vial 03/28/19 History of Present Illiness History of Present Illness: FRIEDA NJ is a 69 year old male Physical Exam Vital Signs: Temp Pulse Resp BP Pulse Ox 97.8 F 65 16 114/52 L 100 03/28/19 14:56 03/28/19 14:56 03/28/19 14:56 03/28/19 14:56 03/28/19 14:56 Results Laboratory Results: WBC 3.4 10^3/uL (4.0-10.5) L 03/28/19 05:05 RBC 2.97 10^6/uL (4.35-5.55) L 03/28/19 05:05 Hgb 9.7 g/dL (13.5-17.0) L 03/28/19 05:05 Hct 28.3 % (37.9-51.0) L 03/28/19 05:05 MCV 95 fl (80-97) 03/28/19 05:05 MCH 32.5 pg (27.0-33.4) 03/28/19 05:05 MCHC 34.1 g/dL (32.0-36.0) 03/28/19 05:05 RDW 20.6 % (11.5-14.0) H 03/28/19 05:05 Plt Count 229 10^3/uL (150-450) 03/28/19 05:05 Lymph % (Auto) 36.4 % (13-45) 03/28/19 05:05 Ogle % (Auto) 9.7 % (3-13) 03/28/19 05:05 Eos % (Auto) 3.6 % (0-6) 03/28/19 05:05 Baso % (Auto) 1.2 % (0-2) 03/28/19 05:05 Absolute Neuts (auto) 1.7 10^3/uL (1.7-8.2) 03/28/19 05:05 Absolute Lymphs (auto) 1.2 10^3/uL (0.5-4.7) 03/28/19 05:05 Absolute Monos (auto) 0.3 10^3/uL (0.1-1.4) 03/28/19 05:05 Absolute Eos (auto) 0.1 10^3/uL (0.0-0.6) 03/28/19 05:05 Absolute Basos (auto) 0.0 10^3/uL (0.0-0.2) 03/28/19 05:05 Seg Neutrophils % 49.1 % (42-78) 03/28/19 05:05 Platelet Estimate Cancelled 03/24/19 20:31 PT 13.2 SEC (11.4-15.4) 03/25/19 11:30 INR 1.00 03/25/19 11:30 INR (Anticoag Therapy) Cancelled 03/21/19 09:48 APTT 32.5 SEC (23.5-35.8) 03/25/19 11:30 Factor VIII Activity 243 % (56-140) H 03/21/19 13:07 Sodium 134.8 mmol/L (137-145) L 03/28/19 05:05 Potassium 5.3 mmol/L (3.6-5.0) H 03/28/19 05:05 Chloride 98 mmol/L (98-107) 03/28/19 05:05 Carbon Dioxide 26 mmol/L (22-30) 03/28/19 05:05 Anion Gap 11 (5-19) 03/28/19 05:05 BUN 40 mg/dL (7-20) H 03/28/19 05:05 Creatinine 7.82 mg/dL (0.52-1.25) H 03/28/19 05:05 Est GFR ( Amer) 8 (>60) L 03/28/19 05:05 Est GFR (Non-Af Amer) Cancelled 03/21/19 09:48 Est GFR (MDRD) Non-Af 7 (>60) L 03/28/19 05:05 Glucose 81 mg/dL (75-110) 03/28/19 05:05 Lactic Acid (Sepsis) 2.1 mmol/L (0.7-2.1) 03/21/19 16:56 Calcium 7.7 mg/dL (8.4-10.2) L 03/28/19 05:05 Magnesium 2.0 mg/dL (1.6-2.3) 03/25/19 05:16 Total Bilirubin 1.1 mg/dL (0.2-1.3) 03/25/19 05:16 Direct Bilirubin 0.6 mg/dL (0.0-0.4) H 03/25/19 05:16 Neonat Total Bilirubin Not Reportable 03/25/19 05:16 Neonat Direct Bilirubin Not Reportable 03/25/19 05:16 Neonat Indirect Bili Not Reportable 03/25/19 05:16 AST 25 U/L (17-59) 03/25/19 05:16 ALT 12 U/L (<50) 03/25/19 05:16 Alkaline Phosphatase 77 U/L (38-126) 03/25/19 05:16 Total Protein 5.2 g/dL (6.3-8.2) L 03/25/19 05:16 Albumin 2.4 g/dL (3.5-5.0) L 03/25/19 05:16 EGFR Cancelled 03/21/19 09:48 Time Trough Drawn 0505 03/28/19 05:05 Vancomycin Trough 15.8 ug/mL (5.0-20.0) 03/28/19 05:05 Slides for Path Review Cancelled 03/24/19 20:31 Blood Type A NEGATIVE 03/24/19 12:35 Antibody Screen NEGATIVE 03/24/19 12:35 Crossmatch See Detail 03/24/19 12:35 Stroke Is this a Stroke Patient?: No Acute Heart Failure - Is this a Heart Failure Patient?: No
== END 2019-03-28 15:30 | disposition home or self-care (01) | DRG 813 ==
LOC: ER 09:02 → EH 16:26 → 3S 19:01 → 3W 03-25 11:44
PROVIDERS: ADMIT Family Medicine; ATTEND Family Medicine
PROC: 30233K1 Transfusion of Nonautologous Frozen Plasma into Peripheral Vein, Percutaneous Approach (ICD-10-PCS; 2019-03-21)
PROC: 5A1D70Z Performance of Urinary Filtration, Intermittent, Less than 6 Hours Per Day (ICD-10-PCS; principal; 2019-03-24)
PROC: 30233N1 Transfusion of Nonautologous Red Blood Cells into Peripheral Vein, Percutaneous Approach (ICD-10-PCS; 2019-03-24)
DX: D68.4 Acquired coagulation factor deficiency (principal); N18.6 End stage renal disease; R78.81 Bacteremia; I12.0 Hypertensive chronic kidney disease with stage 5 chronic kidney disease or end stage renal disease; C79.51 Secondary malignant neoplasm of bone; D62 Acute posthemorrhagic anemia; D63.1 Anemia in chronic kidney disease; C61 Malignant neoplasm of prostate; T14.8XXA Other injury of unspecified body region, initial encounter; X58.XXXA Exposure to other specified factors, initial encounter; B95.62 Methicillin resistant Staphylococcus aureus infection as the cause of diseases classified elsewhere; K21.9 Gastro-esophageal reflux disease without esophagitis; M54.9 Dorsalgia, unspecified; Z79.899 Other long term (current) drug therapy; Z92.21 Personal history of antineoplastic chemotherapy; Z80.1 Family history of malignant neoplasm of trachea, bronchus and lung; Z80.8 Family history of malignant neoplasm of other organs or systems; Z99.2 Dependence on renal dialysis
CPT/HCPCS: 36415; 36430; 80048; 80053; 80202; 82962; 83605; 83735; 85025; 85027; 85240; 85244; 85610; 85730; 86850; 86900; 86901; 86920; 87040; 87077; 87186; 93005; 93010; 96365; 96375; 99284; J2405; J2597; J3370; J3430; J3490; J7060; P9016; P9017; Q5105

== ENCOUNTER 2019-04-01 10:01 | Day surgery (SDC) | payer MEDICARE, OTHER ==
[2019-04-01] MEDS ORDERED: FLUMAZENIL INJ 0.5 MG/5 ML VIAL ONE (10:59)
[2019-04-01] MEDS ORDERED: NALOXONE HCL INJ/PF 0.4 MG/1 ML SDV ONE (10:59)
[2019-04-01] MEDS ORDERED: FENTANYL CITRATE INJ/PF 100 MCG/2 ML AMPUL ONE (10:59)
[2019-04-01] MEDS ORDERED: MIDAZOLAM 2 MG/2 ML INJ ONE (10:59)
[2019-04-01] MEDS ORDERED: DIPHENHYDRAMINE HCL 50 MG/ML VIAL ONE (10:59)
[2019-04-01] MEDS ORDERED: BENZOCAINE 20% AEROSOL SPRAY 60 GM ONE (11:00)
[2019-04-01] MEDS ORDERED: LIDOCAINE 2% JELLY 5 ML TUBE ONE (11:00)
--- NOTE | 2019-04-01 13:28 | XCELERA REPORT ---
Study ID: [id number] [id number] Transesophageal Echocardiogram Report Name: FRIEDA NJ Age: 69 yrs Gender: Male : 1950 Patient Status: Outpatient Patient Location: [facility] Study Date: 04/01/2019 11:12 AM History: Baceteremia Reason For Study: BACTEREMIA Ordering Physician: KARON MUIR Performed By: Harper Kim Interpretation Summary There is no evidence of a mass or vegetation. This does not rule out endocarditis. Left ventricular systolic function is normal. Ejection Fraction = >55%. The right ventricle is normal in size and function. No hemodynamically significant valvular aortic stenosis. There is mild mitral regurgitation. There is no pericardial effusion. Procedure A complete two-dimensional transesophageal echocardiogram was performed (2D, spectral and color flow Doppler). Informed consent for Transesophageal Echocardiogram, and use of a contrast agent as needed, was obtained prior to the procedure. The patient was brought to the Endoscopy [facility] in a fasting state. An intravenous line was placed. A topical anesthetic agent was used for oropharangeal anesthesia. A bite block was inserted. IV conscious sedation was administered using Midazolam 1 mg Fentanyl 25 mcg both IV. The patient's vital signs, including blood pressure, heart rate, pulse oximetry and cardiac rhythm were monitored thoughout the procedure. The transesophageal probe was passed without difficulty. The usual views were obtained; basal, mid-esophageal, transgastric and aortic views. The patient tolerated the procedure well without evidence of orophangeal or esophageal trauma. Subsequent to all the images being obtained the probe was removed with out trauma. Left Ventricle The left ventricle is grossly normal size. There is borderline concentric left ventricular hypertrophy. Left ventricular systolic function is normal. Ejection Fraction = >55%. No regional wall motion abnormalities noted. Right Ventricle The right ventricle is normal in size and function. Atria The interatrial septum is intact with no evidence for an atrial septal defect. The left atrium is borderline dilated. Right atrial size is normal. Mitral Valve The mitral valve is normal in structure and function. There is no vegetation seen on the mitral valve. There is no mitral valve stenosis. There is mild mitral regurgitation. Tricuspid Valve The tricuspid valve is normal in structure and function. There is no tricuspid valve vegetation. There is trace tricuspid regurgitation. Aortic Valve The aortic valve is normal in structure and function. The aortic valve is trileaflet. There is no aortic valvular vegetation. No hemodynamically significant valvular aortic stenosis. No aortic regurgitation is present. Pulmonic Valve The pulmonic valve is not well visualized. Arteries The aortic root is normal size. Pericardium There is no pericardial effusion. : KARON MUIR Anil
[2019-04-01 16:31] VITALS: BP 116/53
== END 2019-04-01 14:40 | disposition home or self-care (01) ==
LOC: EURR 2 10:01
PROVIDERS: ATTEND Internal Medicine
DX: R78.81 Bacteremia (principal); N18.6 End stage renal disease
CPT/HCPCS: 93312; 93325; J1200; J2250; J2310; J3010; J3490

== ENCOUNTER 2019-08-13 16:47 | Emergency (ER) | payer MEDICARE, OTHER ==
[2019-08-13 17:42] LABS: ABSOLUTE LYMPHOCYTES (AUTO) 1.1 10^3/uL (0.5-4.7); ABSOLUTE MONOCYTES (AUTO) 0.4 10^3/uL (0.1-1.4); ABSOLUTE NEUT (AUTO) 2.1 10^3/uL (1.7-8.2); BASOPHILS % (AUTO) 1.4 % (0-2); EOSINOPHILS % (AUTO) 1.3 % (0-6); HEMATOCRIT 37.3 % (37.9-51.0); HEMOGLOBIN 12.8 g/dL (13.5-17.0); LYMPHOCYTES % (AUTO) 30.3 % (13-45); MEAN CORPUSCULAR HEMOGLOBIN 30.5 pg (27.0-33.4); MEAN CORPUSCULAR HGB CONC 34.2 g/dL (32.0-36.0); MEAN CORPUSCULAR VOLUME 89 fl (80-97); MONOCYTES % (AUTO) 9.8 % (3-13); PLATELET COUNT 162 10^3/uL (150-450); RED BLOOD COUNT 4.18 10^6/uL (4.35-5.55); SEGMENTED NEUTROPHILS % (AUTO) 57.2 % (42-78); TOTAL CELLS COUNTED % (AUTO) 100 %; WHITE BLOOD COUNT 3.6 10^3/uL (4.0-10.5)
[2019-08-13 18:03] LABS: ALBUMIN 2.9 g/dL (3.5-5.0); ALKALINE PHOSPHATASE 63 U/L (38-126); ANION GAP 14 (5-19); ASPARTATE AMINO TRANSFERASE 21 U/L (17-59); BILIRUBIN,TOTAL 0.7 mg/dL (0.2-1.3); BLOOD UREA NITROGEN 27 mg/dL (7-20); CALCIUM 7.6 mg/dL (8.4-10.2); CARBON DIOXIDE 24 mmol/L (22-30); CHLORIDE 95 mmol/L (98-107); GLUCOSE 124 mg/dL (75-110); TOTAL PROTEIN 5.7 g/dL (6.3-8.2)
[2019-08-13 18:15] LABS: POTASSIUM 2.6 mmol/L (3.6-5.0)
[2019-08-13] MEDS ORDERED: POTASSI CL 20 MEQ/50 ML RIDER 20 MEQ/50 ML RTUPB IV ONE (18:23)
[2019-08-13] MEDS ORDERED: POTASSIUM CHLORIDE 20 MEQ PACKET PO ONE (18:24)
[2019-08-13 18:29] LABS: ABSOLUTE LYMPHOCYTES (AUTO) 1.1 10^3/uL (0.5-4.7); ABSOLUTE MONOCYTES (AUTO) 0.4 10^3/uL (0.1-1.4); ABSOLUTE NEUT (AUTO) 2.2 10^3/uL (1.7-8.2); BASOPHILS % (AUTO) 1.1 % (0-2); EOSINOPHILS % (AUTO) 1.3 % (0-6); HEMATOCRIT 36.6 % (37.9-51.0); HEMOGLOBIN 12.6 g/dL (13.5-17.0); LYMPHOCYTES % (AUTO) 28.9 % (13-45); MEAN CORPUSCULAR HEMOGLOBIN 30.5 pg (27.0-33.4); MEAN CORPUSCULAR HGB CONC 34.5 g/dL (32.0-36.0); MEAN CORPUSCULAR VOLUME 88 fl (80-97); MONOCYTES % (AUTO) 10.8 % (3-13); PLATELET COUNT 159 10^3/uL (150-450); RED BLOOD COUNT 4.15 10^6/uL (4.35-5.55); RED CELL DISTRIBUTION WIDTH 18.2 % (11.5-14.0); SEGMENTED NEUTROPHILS % (AUTO) 57.9 % (42-78); TOTAL CELLS COUNTED % (AUTO) 100 %; WHITE BLOOD COUNT 3.9 10^3/uL (4.0-10.5)
[2019-08-13 18:35] LABS: PARTIAL THROMBOPLASTIN TIME 83.2 SEC (23.5-35.8)
[2019-08-13 18:46] LABS: PROTHROMBIN TIME 53.3 SEC (11.4-15.4)
[2019-08-13 18:47] LABS: INTERNATIONAL RATION (INR) 5.73
[2019-08-13] MEDS ORDERED: NORMAL SALINE 250 ML IV PRN ×2 (19:40)
--- NOTE | 2019-08-13 19:49 | ER Document Report ---
Doctor's Note Notes: 08/13/19 19:47 This is a 69-year-old male seen primarily by Dr. Pete Love and transferred to my care at 1845 hrs. today. This man has a history of prostate CA with metastases and obstructive uropathy resulting in end-stage renal disease requiring chronic hemodialysis. He last dialyzed yesterday. He came in today because he was having some oozing from the puncture sites left upper extremity AV graft. He was hemodynamically stable and his hemoglobin was normal as was his platelet count. His INR is prolonged approximately 5.4. He denies taking any type of anticoagulants. Bleeding has been controlled with direct pressure. Patient is receiving FFP. He is also hypokalemic with potassium of 2.6. His magnesium is normal. He is getting some oral and IV potassium and is on seat joiner. He will be due again for dialysis tomorrow morning. We currently have no dialysis beds available here and the hospitalist has requested that we seek transfer to another facility. I am contacting [facility] after discussion with patient. 08/13/19 20:13 Patient has been accepted by Dr. Vogt at [facility] for transfer at this time. EMTALA form completed.
[2019-08-13] MEDS ORDERED: ONDANSETRON HCL INJ/PF 4 MG/2 ML SDV IV ONE (20:40)
--- NOTE | 2019-08-13 20:40 | EKG REPORT ---
SEVERITY:- ABNORMAL ECG - SINUS RHYTHM MULTIPLE VENTRICULAR PREMATURE COMPLEXES : Confirmed by: Rodger Gordon 13-Aug-2019 20:39:44
[2019-08-13 23:42] VITALS: BP 107/49
--- NOTE | 2019-09-08 06:25 | ER Document Report ---
Entered by LOLI FONG SCRIBE 08/13/19 1433 Acting as scribe for:RAMONA SOTO MD ED General - General Chief Complaint: Post Surgical Bleeding Stated Complaint: BLEEDING Primary Care Provider: LUIS CHAUDHARY MD [Primary Care Provider] - Follow up as needed Information source: Patient Notes: This 69-year-old male presents to the emergency department complaining of excessive bleeding from his left upper arm that began yesterday. Patient states that he went to his dialysis appointment yesterday and notices a "slow drizzle" of blood. Patient reports that the dialysis appointment went smoothly and he was dialyzed for the full duration scheduled. Patient reports that he had just changed the bandage prior to leaving the house to come to the emergency department. Patient said that the bleeding stopped for about an hour this morning. Patient said that he has been putting pressure on the bleeding spot and a cold pack with little relief. Patient reports diarrhea for the past week. Patient states that he saw his PCP last week for his diarrhea and was prescribed an antibiotic. Patient denies sputum, headache, abdominal pain, loss of consciousness, rectal bleeding, weakness, fever, chills, lightheaded and dizziness. Patient denies COVID exposure. Patient reports nose bleeds with one episode today. Patient mentions that he just finished a round of radiation a month ago. Patient has prostate cancer with metathesis to the bones. TRAVEL OUTSIDE OF THE [place] IN LAST 30 DAYS: No - Related Data Allergies/Adverse Reactions: No Known Allergies Allergy (Verified 12/26/18 09:41) Past Medical History - General Information source: Patient - Social History Smoking Status: Never Smoker Cigarette use (# per day): No Chew tobacco use (# tins/day): No Frequency of alcohol use: None Drug Abuse: None Lives with: Spouse/Significant other Family History: Reviewed & Not Pertinent - Past Medical History Cardiac Medical History: Reports: Hx Hypertension Renal/ Medical History: Reports: Hx Benign Prostatic Hyperplasia - enlarged but surgery and ok now, Hx End Stage Renal Disease Malignancy Medical History: Reports Hx Bone Cancer, Reports Hx Prostate Cancer GI Medical History: Reports: Hx Gastroesophageal Reflux Disease, Hx Ulcer - 1989 surgery for ulcers Past Surgical History: Reports: Hx Genitourinary Surgery - for BPH, Other - Ulcer surgery 1984 - Immunizations Hx Diphtheria, Pertussis, Tetanus Vaccination: Yes Hx Pneumococcal Vaccination: 04/02/13 Review of Systems - Review of Systems Constitutional: See HPI. denies: Chills, Fever, Weakness EENT: See HPI, Nose discharge Cardiovascular: See HPI. denies: Chest pain, Dizziness, Lightheaded Respiratory: See HPI, Cough. denies: Sputum Gastrointestinal: See HPI, Diarrhea. denies: Abdominal pain, Rectal bleeding Genitourinary: No symptoms reported Male Genitourinary: No symptoms reported Musculoskeletal: No symptoms reported Skin: No symptoms reported Hematologic/Lymphatic: See HPI, Easy bleeding, Easy bruising Neurological/Psychological: See HPI. denies: Lost consciousness, Headaches -: Yes All other systems reviewed and negative Physical Exam - Vital signs Vitals: Temp Pulse Resp BP Pulse Ox 99.0 F 78 19 112/58 L 98 08/13/19 16:58 08/13/19 16:58 08/13/19 16:58 08/13/19 16:58 08/13/19 16:58 - Notes Notes: Physical Exam: General: Alert, appears well. HEENT: Normocephalic. Atraumatic. PERRL. Extraocular movements intact. Oropharynx clear. Neck: Supple. Non-tender. Respiratory: No respiratory distress. Clear and equal breath sounds bilaterally. Cardiovascular: Regular rate and rhythm. Abdominal: Normal Inspection. Non-tender. No distension. Normal Bowel Sounds. Back: No gross abnormalities. Extremities: Moves all four extremities. Upper extremities: Normal ROM. Bleeding from AV fistula shunt on left upper arm. Site is a pinpoint and is an oozing bleed of a small amount. Lower extremities: Normal inspection. No edema. Normal ROM. Neurological: Normal cognition. AAOx4. Normal speech. Psychological: Normal affect. Normal Mood. Skin: Warm. Dry. Normal color. Course - Re-evaluation Re-evalutation: 08/13/19 18:27 Patient comfortably waiting for lab results. Not showing any signs of distress at this moment. Combat gauze was placed on the pinhole oozing of blood from his left AV fistula discharge in the left arm. Also combat gauze was placed over an ulcer on his left hand again, Coban wrap was applied with control and no further bleeding noted.. - Vital Signs Vital signs: Temp Pulse Resp BP Pulse Ox 98.7 F 78 15 107/49 L 98 08/13/19 22:01 08/13/19 16:58 08/13/19 22:01 08/13/19 22:01 08/13/19 22:01 08/13/19 18:29 Vital signs stable hemodynamically not showing any compromise of tachycardia or low blood pressure. - Laboratory Result Diagrams: 08/13/19 18:15 08/13/19 17:29 Laboratory results interpreted by me: 08/13/19 08/13/19 08/13/19 17:29 17:29 18:15 WBC 3.6 L RBC 4.18 L Hgb 12.8 L Hct 37.3 L RDW 18.0 H PT 53.3 H* INR 5.73 H* APTT 83.2 H Sodium 133.1 L Potassium 2.6 L* Chloride 95 L BUN 27 H Creatinine 4.98 H Est GFR ( Amer) 14 L Est GFR (MDRD) Non-Af 12 L Glucose 124 H Calcium 7.6 L Total Protein 5.7 L Albumin 2.9 L 08/13/19 18:15 WBC 3.9 L RBC 4.15 L Hgb 12.6 L Hct 36.6 L RDW 18.2 H PT INR APTT Sodium Potassium Chloride BUN Creatinine Est GFR ( Amer) Est GFR (MDRD) Non-Af Glucose Calcium Total Protein Albumin Laboratory results shows a potassium of 2.6 white blood cell count 3.6 which is normal for patient at his baseline. Hemoglobin 12.8 and hematocrit 37.3 is an elevation over patient's baseline there is going to be a repeat CBC done to confirm that. Patient has chronic renal failure and obvious BUN/creatinine elevation in his baseline. Currently there is a repeat coags and CBC to confirm initial results. Patient is not on any anticoagulants known or any blood thinners per history and as well as on his medication list. Patient has been receiving radiation therapy to his bones secondary to his cancer. Patient has metastatic prostate cancer to bones and lymph nodes. Denies any known fractures at this time. 08/13/19 18:57 Repeat laboratories show a coag shown a pro time of 5.5. - Transfer of Care Care transferred to following provider: Care transferred to Dr. Adriano Mccormick for further care and management. Discharge - Discharge Clinical Impression: Coagulopathy, ESRD on hemodialysis, Dialysis AV fistula malfunction, Hypokalemia, Prostate cancer metastatic to bone, Active bleeding Disposition: [facility] Referrals: LUIS CHAUDHARY MD [Primary Care Provider] - Follow up as needed I personally performed the services described in the documentation, reviewed and edited the documentation which was dictated to the scribe in my presence, and it accurately records my words and actions.
== END 2019-08-13 22:53 | disposition short-term general hospital (02) ==
LOC: ER 16:47
DX: T82.41XA Breakdown (mechanical) of vascular dialysis catheter, initial encounter (principal); T82.838A Hemorrhage due to vascular prosthetic devices, implants and grafts, initial encounter; Y82.8 Other medical devices associated with adverse incidents; Y84.1 Kidney dialysis as the cause of abnormal reaction of the patient, or of later complication, without mention of misadventure at the time of the procedure; N18.6 End stage renal disease; Z99.2 Dependence on renal dialysis; E87.6 Hypokalemia; N13.9 Obstructive and reflux uropathy, unspecified; C61 Malignant neoplasm of prostate; C79.51 Secondary malignant neoplasm of bone; C77.9 Secondary and unspecified malignant neoplasm of lymph node, unspecified; I10 Essential (primary) hypertension; R09.89 Other specified symptoms and signs involving the circulatory and respiratory systems; R05 Cough; R19.7 Diarrhea, unspecified; Z92.3 Personal history of irradiation
CPT/HCPCS: 93005; 99284; 96361; 96374; 86900; 86901; 36415; 36430; 83735; 85025; 85610; 85730; 80053; 93010; P9017; J2405; J3480; J3490

== ENCOUNTER 2020-02-23 12:05 | Emergency (ER) | payer MEDICARE, OTHER ==
--- NOTE | 2020-02-23 12:56 | ER Document Report ---
ED Medical Screen (RME) - General Chief Complaint: Skin Tear(s) Stated Complaint: SKIN TEAR Time Seen by Provider: 02/23/20 12:49 Primary Care Provider: LUIS CHAUDHARY MD [Primary Care Provider] - Follow up as needed Mode of Arrival: Ambulatory Information source: Patient, Relative Notes: Patient is a 70-year-old male comes emergency room complaining of having "skin tear". Patient has a left-sided dialysis shunt spent approximately 5 years and states he was trying to take today all of a sudden his arm started gushing blood. He believes it to be a skin tear. Is been packed very heavily with compression dressing on it. Denies taking any type of anticoagulated medication. Denies any shortness of breath or chest pain. Examination: Patient is a well-nourished well-developed 70-year-old male is in no apparent distress on examination. Cardiac: Regular rate and rhythm no murmurs. Lungs: Bilateral breath sounds to auscultation. Left upper extremity shows it to be wrapped with a good compression wrapping. I did attempt to remove it as soon as I was able to get the compression Band-Aids loosened patient started gushing blood. There appears to be bigger than a skin tear at this point. Possibly a superficial bleeder. Further evaluation of the made in the back where they can do some controlled maneuver to keep the area decrease in blood flow. I have greeted and performed a rapid initial assessment of this patient. A comprehensive ED assessment and evaluation of the patient, analysis of test results and completion of the medical decision making process will be conducted by additional ED providers. Dictation of this chart was performed using voice recognition software; therefore, there may be some unintended grammatical errors. TRAVEL OUTSIDE OF THE [place] IN LAST 30 DAYS: No - Related Data Allergies/Adverse Reactions: No Known Allergies Allergy (Verified 02/23/20 12:35) Past Medical History - Past Medical History Cardiac Medical History: Reports: Hx Hypertension Denies: Hx Congestive Heart Failure, Hx Coronary Artery Disease, Hx Heart Attack Pulmonary Medical History: Denies: Hx Asthma, Hx Bronchitis, Hx COPD, Hx Pneumonia, Hx Tuberculosis Neurological Medical History: Denies: Hx Cerebrovascular Accident, Hx Seizures, Hx Parkinson's Disease Renal/ Medical History: Reports: Hx Benign Prostatic Hyperplasia - enlarged but surgery and ok now, Hx End Stage Renal Disease. Denies: Hx Kidney Stones, Hx Peritoneal Dialysis Malignancy Medical History: Reports Hx Bone Cancer, Reports Hx Prostate Cancer GI Medical History: Reports: Hx Gastroesophageal Reflux Disease, Hx Ulcer - 1989 surgery for ulcers. Denies: Hx Cirrhosis, Hx Hepatitis, Hx Hiatal Hernia Musculoskeltal Medical History: Denies Hx Arthritis, Denies Hx Multiple Sclerosis Psychiatric Medical History: Denies: Hx Bipolar Disorder, Hx Depression, Hx Schizophrenia Infectious Medical History: Denies: Hx Hepatitis Past Surgical History: Reports: Hx Genitourinary Surgery - for BPH, Other - Ulcer surgery 1984. Denies: Hx Open Heart Surgery, Hx Pacemaker - Immunizations Hx Diphtheria, Pertussis, Tetanus Vaccination: Yes Physical Exam - Vital signs Vitals: Temp Pulse Resp BP Pulse Ox 99.3 F 83 17 74/48 L 100 02/23/20 12:15 02/23/20 12:15 02/23/20 12:15 02/23/20 12:15 02/23/20 12:15 Course - Vital Signs Vital signs: Temp Pulse Resp BP Pulse Ox 99.3 F 83 17 74/48 L 100 02/23/20 12:15 02/23/20 12:15 02/23/20 12:15 02/23/20 12:15 02/23/20 12:15 Doctor's Discharge - Discharge Referrals: LUIS CHAUDHARY MD [Primary Care Provider] - Follow up as needed
[2020-02-23] MEDS ORDERED: THROMBIN (BOVINE) 5000 UNIT EPITAXIS KIT TP ONE (15:41)
--- NOTE | 2020-02-23 16:57 | ER Document Report ---
ED General - General Chief Complaint: Skin Tear(s) Stated Complaint: SKIN TEAR Time Seen by Provider: 02/23/20 12:49 Primary Care Provider: LUIS CHAUDHARY MD [Primary Care Provider] - Follow up as needed Mode of Arrival: Ambulatory Information source: Patient TRAVEL OUTSIDE OF THE [place] IN LAST 30 DAYS: No - HPI Notes: Patient presents with bleeding from the left arm. Patient is a dialysis patient Sunday. He states that yesterday when he went home he went to remove the tape from dialysis and I cause a skin tear. He has been unable to get the bleeding to stop since that time. He went to dialysis today and they were not able to stop the bleeding so they sent the patient here. He denies any other complaints. He has had no lightheadedness or dizziness. No significant pain. He has tried pressure dressings with no relief. - Related Data Allergies/Adverse Reactions: No Known Allergies Allergy (Verified 02/23/20 12:35) Past Medical History - General Information source: Patient, Relative - Social History Smoking Status: Former Smoker Frequency of alcohol use: None Drug Abuse: None Family History: Reviewed & Not Pertinent Patient has homicidal ideation: No - Past Medical History Cardiac Medical History: Reports: Hx Hypertension Denies: Hx Congestive Heart Failure, Hx Coronary Artery Disease, Hx Heart Attack Pulmonary Medical History: Denies: Hx Asthma, Hx Bronchitis, Hx COPD, Hx Pneumonia, Hx Tuberculosis Neurological Medical History: Denies: Hx Cerebrovascular Accident, Hx Seizures, Hx Parkinson's Disease Renal/ Medical History: Reports: Hx Benign Prostatic Hyperplasia - enlarged but surgery and ok now, Hx End Stage Renal Disease. Denies: Hx Kidney Stones, Hx Peritoneal Dialysis Malignancy Medical History: Reports Hx Bone Cancer, Reports Hx Prostate Cancer GI Medical History: Reports: Hx Gastroesophageal Reflux Disease, Hx Ulcer - 1989 surgery for ulcers. Denies: Hx Cirrhosis, Hx Hepatitis, Hx Hiatal Hernia Musculoskeletal Medical History: Denies Hx Arthritis, Denies Hx Multiple Sclerosis Psychiatric Medical History: Denies: Hx Bipolar Disorder, Hx Depression, Hx Schizophrenia Infectious Medical History: Denies: Hx Hepatitis Past Surgical History: Reports: Hx Genitourinary Surgery - for BPH, Other - Ulcer surgery 1984. Denies: Hx Open Heart Surgery, Hx Pacemaker - Immunizations Hx Diphtheria, Pertussis, Tetanus Vaccination: Yes Hx Pneumococcal Vaccination: 04/02/13 Review of Systems - Review of Systems Constitutional: denies: Chills, Fever Cardiovascular: denies: Chest pain, Palpitations Respiratory: denies: Cough, Short of breath -: Yes All other systems reviewed and negative Physical Exam - Vital signs Vitals: Temp Pulse Resp BP Pulse Ox 99.3 F 83 17 74/48 L 100 02/23/20 12:15 02/23/20 12:15 02/23/20 12:15 02/23/20 12:15 02/23/20 12:15 Interpretation: Hypotensive - General General appearance: Appears well, Alert - HEENT Head: Normocephalic, Atraumatic Eyes: Normal Pupils: PERRL - Respiratory Respiratory status: No respiratory distress Chest status: Nontender Breath sounds: Normal Chest palpation: Normal - Cardiovascular Rhythm: Regular Heart sounds: Normal auscultation Murmur: No - Abdominal Inspection: Normal Distension: No distension Bowel sounds: Normal Tenderness: Nontender Organomegaly: No organomegaly - Back Back: Normal, Nontender - Extremities General upper extremity: Nontender, Normal color, Normal ROM, Normal temperature, Other - Patient's left arm has a skin tear approximate the size of a half dollar. It does actively ooze when the dressing is removed. Is not significantly tender. General lower extremity: Normal inspection, Nontender, Normal color, Normal ROM, Normal temperature. No: Juan Manuel's sign - Neurological Neuro grossly intact: Yes Cognition: Normal Orientation: AAOx4 [place]uro Coma Scale Eye Opening: Spontaneous Mauro Coma Scale Verbal: Oriented [place]uro Coma Scale Motor: Obeys Commands [place] Coma Scale Total: 15 Speech: Normal Motor strength normal: LUE, RUE, LLE, RLE Sensory: Normal - Psychological Associated symptoms: Normal affect, Normal mood - Skin Skin Temperature: Warm Skin Moisture: Dry Skin Color: Normal, Other - Except as noted above Course - Re-evaluation Re-evalutation: 02/23/20 17:02 Patient presents with a skin tear that would not stop bleeding. It was pressure wrapped with thrombin and there is no further bleeding at this time. Initial blood pressure was low however he states his blood pressure is always low and approximately 80 systolic after dialysis. He had a normal dialysis run. He states he feels normal and has no significant symptoms at this time. His blood pressure was rechecked and is now 135/63. I will discharge the patient home and have instructed him to keep the dressing on until he has dialysis again on Sunday. - Vital Signs Vital signs: Temp Pulse Resp BP Pulse Ox 99.3 F 83 17 135/63 H 100 02/23/20 12:15 02/23/20 12:15 02/23/20 12:15 02/23/20 17:01 02/23/20 12:15 Discharge - Discharge Clinical Impression: Bleeding diathesis, Skin tear, ESRD on hemodialysis Condition: Stable Disposition: HOME, SELF-CARE Additional Instructions: keep dressing on till seen at dialysis at Sunday. Referrals: LUIS CHAUDHARY MD [Primary Care Provider] - Follow up in 3-5 days
[2020-02-23 17:29] VITALS: BP 138/59
== END 2020-02-23 17:27 | disposition home or self-care (01) ==
LOC: ER 12:05
DX: S51.812A Laceration without foreign body of left forearm, initial encounter (principal); X58.XXXA Exposure to other specified factors, initial encounter; I12.0 Hypertensive chronic kidney disease with stage 5 chronic kidney disease or end stage renal disease; N18.6 End stage renal disease; Z99.2 Dependence on renal dialysis
CPT/HCPCS: 99283; J3490

== ENCOUNTER 2020-04-27 11:43 | Emergency (ER) | payer MEDICARE, OTHER ==
[2020-04-27] MEDS ORDERED: OXYCODONE-ACETAMINOPHEN 5-325 MG TABLET PO ONE (12:55)
--- NOTE | 2020-04-27 13:40 | RADIOLOGY REPORT (SQ) ---
EXAM DESCRIPTION: PELVIS AP IMAGES COMPLETED DATE/TIME: 04/27/2020 1:31 pm REASON FOR STUDY: pain w/o trauma; hx. prostate CA COMPARISON: None. NUMBER OF VIEWS: One view TECHNIQUE: AP Pelvis LIMITATIONS: None. FINDINGS: MINERALIZATION: Normal. HIPS: No acute fracture or dislocation. PELVIS AND SACRUM: No acute fracture or dislocation. PUBIS AND ISCHIUM: No acute fracture. LOWER LUMBAR SPINE: No acute findings as visualized. SOFT TISSUES: No findings. OTHER: Marked heterogenous sclerosis throughout the pelvis as well as the visualized lower lumbar spi ne and upper right and left femur. IMPRESSION: MARKED HETEROGENOUS SCLEROSIS THROUGHOUT THE VISUALIZED BONY STRUCTURES CONSISTENT WITH OSTEOBLASTIC METASTASES. NO FRACTURE OR OTHER ACUTE FINDINGS. COMMENT: Pelvic fractures are often occult on plain radiographs. If strong clinical suspicion for f racture, recommend CT or MR. TECHNICAL DOCUMENTATION: JOB ID: [id number] 2010 [employer]- All Rights Reserved Reading location - IP/workstation name: [email or web address]
--- NOTE | 2020-04-27 15:13 | ER Document Report ---
ED General - General Chief Complaint: Hip Pain Stated Complaint: HIP PAIN Time Seen by Provider: 04/27/20 12:43 Primary Care Provider: LUIS CHAUDHARY MD [Primary Care Provider] - Follow up as needed TRAVEL OUTSIDE OF THE [place] IN LAST 30 DAYS: No - HPI Notes: Chief complaint: Bilateral hip pain History of present illness: Mr. Coyne is a 70-year-old man with a history of prostate CA with extensive bony metastasis who also has end-stage renal disease on dialysis sent here after completing his dialysis session today because of complaint of severe hip pain. He apparently is not on any current narcotic analgesic. No trauma is reported. We have also received a note from the office of Dr. Rosario indicating if there is no acute fracture they would feel this is appropriate time for this man to consider hospice care. Patient is accompanied here by his today and she is indicating that she is having difficulty managing on her own at home and she is very much in favor of initiation of hospice care. - Related Data Allergies/Adverse Reactions: No Known Allergies Allergy (Verified 04/27/20 11:58) Home Medications: calcium gluconate, epogen, liquacel Past Medical History - General Information source: Patient, Relative, [facility] Records, Outside Facility Records - Social History Smoking Status: Former Smoker Frequency of alcohol use: None Drug Abuse: None Family History: Reviewed & Not Pertinent Patient has homicidal ideation: No - Past Medical History Cardiac Medical History: Reports: Hx Hypertension Denies: Hx Congestive Heart Failure, Hx Coronary Artery Disease, Hx Heart Attack Pulmonary Medical History: Denies: Hx Asthma, Hx Bronchitis, Hx COPD, Hx Pneumonia, Hx Tuberculosis Neurological Medical History: Denies: Hx Cerebrovascular Accident, Hx Seizures, Hx Parkinson's Disease Renal/ Medical History: Reports: Hx Benign Prostatic Hyperplasia - enlarged but surgery and ok now, Hx End Stage Renal Disease. Denies: Hx Kidney Stones, Hx Peritoneal Dialysis Malignancy Medical History: Reports Hx Bone Cancer, Reports Hx Prostate Cancer GI Medical History: Reports: Hx Gastroesophageal Reflux Disease, Hx Ulcer - 1989 surgery for ulcers. Denies: Hx Cirrhosis, Hx Hepatitis, Hx Hiatal Hernia Musculoskeletal Medical History: Denies Hx Arthritis, Denies Hx Multiple Sclerosis Psychiatric Medical History: Denies: Hx Bipolar Disorder, Hx Depression, Hx Schizophrenia Infectious Medical History: Denies: Hx Hepatitis Past Surgical History: Reports: Hx Genitourinary Surgery - for BPH, Other - Ulcer surgery 1984. Denies: Hx Open Heart Surgery, Hx Pacemaker - Immunizations Hx Diphtheria, Pertussis, Tetanus Vaccination: Yes Hx Pneumococcal Vaccination: 04/02/13 Review of Systems - Review of Systems Notes: Constitutional: Negative for fever. HENT: Negative for sore throat. Eyes: Negative for visual changes. Cardiovascular: Negative for chest pain. Respiratory: Negative for shortness of breath. Gastrointestinal: Negative for abdominal pain, vomiting or diarrhea. Genitourinary: Negative for dysuria. Musculoskeletal: As per HPI. Skin: Chronic ecchymoses of extremities. Neurological: Negative for headaches, focal weakness or numbness. 10 point ROS negative except as marked above and in HPI. Physical Exam - Vital signs Vitals: BP 98/57 L 04/27/20 11:48 - Notes Notes: GENERAL: Very chronically ill cushingoid appearing elderly man who looks quite uncomfortable. SKIN: Extensive ecchymoses of all 4 extremities. Good turgor. HEAD: Bitemporal wasting. EYES: PERRLA. EOMI. Conjunctivae and sclerae clear. EARS: Uses hearing aids with severe bilateral hearing loss. CANALS AND TMS CLEAR. NOSE: CLEAR. MOUTH: Moist mucosa. Good dentition. No stridor or edema. No drooling. NECK: Supple. No masses or thyromegaly. No adenopathy. Carotids 2+ without bruits. No JVD. BACK: Symmetrical without tenderness. CHEST: Respirations unlabored. Breath sounds clear and symmetrical. HEART: Regular rhythm. No murmur gallop or rub. ABDOMEN: Healed surgical scars present. Soft nontender without masses, organomegaly or rebound. Bowel sounds normally active. No bruits. GENITALIA: Deferred. EXTREMITIES: Patient has bony tenderness over the bony pelvis. There is no shortening or abnormal rotation of either lower extremities. No edema. No calf tenderness. Cap refill less than 1.5 seconds. Dorsalis pedis and posterior tibial pulses 3+ and symmetrical. NEUROLOGICAL: GCS 15. Alert and oriented x3. Fluent speech. Cranial nerves II through XII intact. Sensorimotor and cerebellar normal. Normal tone. PSYCHIATRIC: Appropriate affect. Course - Re-evaluation Re-evalutation: 04/27/20 15:19 I discussed this gentlemen's present situation with both Dr. Houston and Dr. Rosario from oncology. They feel that this gentleman will be best served by hospice at this time. Dr. Rosario is going to call patient's to discuss this in some detail and make the necessary arrangements. I have given him some oral Percocet and he is quite comfortable with this. I will provide a prescription for Percocet at home for the next several days until he can initiate hospice care. Findings, clinical impression and plan of treatment have been discussed with patient/family. Understanding of current findings and recommendations has been acknowledged by them and there is agreement regarding disposition and follow-up. - Vital Signs Vital signs: Temp Pulse Resp BP Pulse Ox 98.8 F 80 19 92/64 L 95 04/27/20 11:58 04/27/20 11:58 04/27/20 14:01 04/27/20 14:01 04/27/20 11:58 - Laboratory Results Critical Laboratory Results Reviewed: No Critical Results - Radiology Results Radiology Results Interpreted: 04/27/20 15:19 Pelvis X-Ray 04/27/20 12:55 IMPRESSION: MARKED HETEROGENOUS SCLEROSIS THROUGHOUT THE VISUALIZED BONY STRUCTURES CONSISTENT WITH OSTEOBLASTIC METASTASES. NO FRACTURE OR OTHER ACUTE FINDINGS. Critical Radiology Results Reviewed: Yes Attending or Supervising Physician who Reviewed Radiology: AIMEE WILCOX Discharge - Discharge Clinical Impression: Prostate cancer metastatic to bone Condition: Stable Disposition: HOSPICE CENTER Additional Instructions: Take prescribed pain medication as needed. Dr. Rosario will assist you with establishing hospice care. Prescriptions: Oxycodone HCl/Acetaminophen [Percocet 5-325 mg Tablet] 1 tab PO Q6H PRN #15 tablet PRN Reason: Referrals: LUIS CHAUDHARY MD [Primary Care Provider] - Follow up as needed
--- NOTE | 2020-04-27 15:17 | PDOC CONSULTATION ---
Consultation Consult Date: 04/27/20 Attending physician:: AIMEE MCCORMICK Provider Consulted: RADHA CASTRO Consult reason:: Asked by Dr. Mccormick to see pt well known to oncology service w/ both anemia chronic disease and stage IV prostate cancer History of Present Illness Admission Date/PCP: LUIS CHAUDHARY Patient complains of: Pain, weakness History of Present Illness: FRIEDA [place] is a 70 year old male well known to our oncology team w/ h/o prostate cancer, he has been primarily treated by [facility] for this. Thru us, he had been receiving EPO injections for anemia of chronic disease. He went to nephrology for routine f/u, there he was doing poorly, weak, and having pain. He was referred to the ED b/c there was concern of pelvic fracture. XRAY imaging was negative for this. The pt and had discussion both in nephrology and I discussed with them now on the telehealth consultation about next steps of care. After discussion, pt was interested in proceeding with a comfort care approach. Past Medical History Cardiac Medical History: Reports: Hypertension Denies: Congestive Heart Failure, Coronary Artery Disease, Myocardial Infarction Pulmonary Medical History: Denies: Asthma, Bronchitis, Chronic Obstructive Pulmonary Disease (COPD), Pneumonia, Tuberculosis Neurological Medical History: Denies: Seizures Renal/ Medical History: Reports: End Stage Renal Disease Malignancy Medical History: Reports: Bone Cancer GI Medical History: Reports: Gastroesophageal Reflux Disease Denies: Cirrhosis, Hepatitis, Hiatal Hernia Musculoskeltal Medical History: Denies: Arthritis Psychiatric Medical History: Denies: Bipolar Disorder, Depression Hematology: Reports: Anemia, Bleeding Tendencies Denies: Sickle Cell Disease Past Surgical History Past Surgical History: Reports: Other - Ulcer surgery 1984 Denies: Pacemaker Social History Information Source: Patient Smoking Status: Former Smoker Frequency of Alcohol Use: None Hx Recreational Drug Use: No Drugs: None Hx Prescription Drug Abuse: No - Advance Directive Resuscitation Status: Full Code Family History Family History: Reviewed & Not Pertinent Parental Family History Reviewed: Yes Children Family History Reviewed: Yes Sibling(s) Family History Reviewed.: Yes Medication/Allergy Home Medications: Epoetin Gerber [Procrit Inj 40,000 Unit/1 ml Vial (Oncology)] 40,000 unit SUBCUT .QWEEKLY 05/17/16 Amlodipine Besylate [Norvasc 10 mg Tablet] 10 mg PO DAILY 02/25/19 Enzalutamide [Xtandi] 160 mg PO Q12 MDD 8 tabs 02/25/19 Fenofibrate 145 mg PO DAILY 02/25/19 Oxycodone HCl/Acetaminophen [Oxycodon-Acetaminophen 7.5-325] 1 tab PO Q8HP PRN 02/25/19 Pantoprazole Sodium [Protonix [address] Tablet] 40 mg PO DAILY 02/25/19 Prochlorperazine Maleate [Compazine 10 mg Tablet] 10 mg PO Q8HP PRN 02/25/19 Ergocalciferol (Vitamin D2) [Vitamin D2] 50,000 unit PO .[id number] 03/21/19 Megestrol Acetate 10 ml PO DAILY 03/21/19 Ondansetron HCl 4 mg PO BIDP PRN 03/21/19 Promethazine HCl [Phenergan 25 mg Tablet] 25 mg PO Q8HP PRN 03/21/19 Sevelamer HCl [Renagel 800 mg Tablet] 2,400 mg PO MEALS 10 Days #90 tablet 03/28/19 Vancomycin HCl [Vancocin Inj 1000 mg Vial] 750 mg IV PDIA vial 03/28/19 Allergies/Adverse Reactions: No Known Allergies Allergy (Verified 04/27/20 11:58) Review of Systems Constitutional: ABSENT: chills, fever(s), headache(s), weight gain, weight loss Eyes: ABSENT: visual disturbances Ears: ABSENT: hearing changes Cardiovascular: ABSENT: chest pain, dyspnea on exertion, edema, orthropnea, palpitations Respiratory: ABSENT: cough, hemoptysis Gastrointestinal: ABSENT: abdominal pain, constipation, diarrhea, hematemesis, hematochezia, nausea, vomiting Genitourinary: ABSENT: dysuria, hematuria Musculoskeletal: ABSENT: joint swelling Integumentary: ABSENT: rash, wounds Neurological: ABSENT: abnormal gait, abnormal speech, confusion, dizziness, focal weakness, syncope Psychiatric: ABSENT: anxiety, depression, homidical ideation, suicidal ideation Endocrine: ABSENT: cold intolerance, heat intolerance, polydipsia, polyuria Hematologic/Lymphatic: ABSENT: easy bleeding, easy bruising Physical Exam Vital Signs: Temp Pulse Resp BP Pulse Ox 98.8 F 80 19 92/64 L 95 04/27/20 11:58 04/27/20 11:58 04/27/20 14:01 04/27/20 14:01 04/27/20 11:58 Intake & Output 04/26/20 04/27/20 04/28/20 06:59 06:59 06:59 Weight 94.347 kg General appearance: PRESENT: no acute distress, well-developed, well-nourished Head exam: PRESENT: atraumatic, normocephalic Eye exam: PRESENT: conjunctiva pink, EOMI, PERRLA. ABSENT: scleral icterus Ear exam: PRESENT: normal external ear exam Mouth exam: PRESENT: moist, tongue midline Neck exam: ABSENT: carotid bruit, JVD, lymphadenopathy, thyromegaly Respiratory exam: PRESENT: clear to auscultation vane. ABSENT: rales, rhonchi, wheezes Cardiovascular exam: PRESENT: RRR. ABSENT: diastolic murmur, rubs, systolic murmur Pulses: PRESENT: normal dorsalis pedis pul Vascular exam: PRESENT: normal capillary refill GI/Abdominal exam: PRESENT: normal bowel sounds, soft. ABSENT: distended, guarding, mass, organolmegaly, rebound, tenderness Rectal exam: PRESENT: deferred Extremities exam: PRESENT: full ROM. ABSENT: calf tenderness, clubbing, pedal edema Neurological exam: PRESENT: alert, awake, oriented to person, oriented to place, oriented to time, oriented to situation, CN II-XII grossly intact. ABSENT: motor sensory deficit Psychiatric exam: PRESENT: appropriate affect, normal mood. ABSENT: homicidal ideation, suicidal ideation Skin exam: PRESENT: dry, intact, warm. ABSENT: cyanosis, rash Results Impressions: Pelvis X-Ray 04/27/20 12:55 IMPRESSION: MARKED HETEROGENOUS SCLEROSIS THROUGHOUT THE VISUALIZED BONY STRUCTURES CONSISTENT WITH OSTEOBLASTIC METASTASES. NO FRACTURE OR OTHER ACUTE FINDINGS. Status: Image reviewed by me Assessment & Plan - Diagnosis (1) Prostate cancer metastatic to bone Is this a current diagnosis for this admission?: Yes Plan: Pt w/ known prostate ca w/ bone mets, family would like hospice care, don't current want to pursue active therapy at this point, wants to be comfortable. ED feels pt is appropriate for d/c so we will get hospice care involved, he is hospice appropriate, life expectancy <6m. - Time Disposition: Spent >100 in in discussion/coordination of care, documentation, end of life discussion.
[2020-04-27 15:28] VITALS: BP 90/52
== END 2020-04-27 16:28 | disposition hospice, inpatient (51) ==
LOC: ER 11:43
DX: C61 Malignant neoplasm of prostate (principal); C79.51 Secondary malignant neoplasm of bone; M25.559 Pain in unspecified hip; I12.0 Hypertensive chronic kidney disease with stage 5 chronic kidney disease or end stage renal disease; N18.6 End stage renal disease; D63.1 Anemia in chronic kidney disease; Z99.2 Dependence on renal dialysis; R58 Hemorrhage, not elsewhere classified; Z79.899 Other long term (current) drug therapy; Z87.891 Personal history of nicotine dependence
CPT/HCPCS: 99284; 72170; A9270